=== PATIENT | male | born 1955 | race Two or more races ===

== ENCOUNTER 2024-10-11 17:36 | Inpatient (IN) | payer BC, MEDICARE ==
[~2024-10-11] VITALS: Ht 172.7 cm; Wt 110.5 kg
--- NOTE | 2024-10-11 18:04 | DVH ---
Procedure: CT HEAD WITHOUT CONTRAST Study Date and Requested Time: 10/11/2024 05:46 PM History: R/O STROKE Comparison: None Dose: CTDI: 48.25 mGy DLP: 957.5 mGycm Technique: Multiplanar images obtained through the brain without intravenous contrast. Findings: Mild diffuse brain atrophy. Mild chronic small vessel ischemic changes. 4 mm hypodense focus of the l eft lateral thalamus with 5 mm hypodense focus within the left basal ganglia. No hemorrhages, masses, mass effect, midline shift, or herniation. No intra-axial or extra-axial flui d collections. No evidence of hydrocephalus. The basal cisterns are patent. The pituitary gland, sella and parasellar regions are unremarkable. The cerebellar tonsils are in nor mal position. The cerebellum is unremarkable. The orbits and globes are unremarkable. Mild polypoid mucoperiosteal thickening of the maxillary sinu ses. Otherwise, the paranasal sinuses and mastoids are clear. There are no worrisome calvarial lesio ns. Impression: 4 mm hypodense focus within the left lateral thalamus with 5 mm hypodense focus within the left basal ganglia which may represent lacunar infarcts of unknown chronicity versus prominent perivascular spa lein. MRI would be helpful for further evaluation.
[2024-10-11 18:15] VITALS: PULSE 85; RESP 16; O2SAT 97
--- NOTE | 2024-10-11 18:15 | BSKYNEURO ---
[facility] Note # Demographics Consult Type: Acute Stroke Level 2 (4.5-24 hrs) Patient Location: Emergency Room First Name: NATE Last Name: MEI Date of : 1955 Age: 69 Gender: Male Facility: [facility] Time of Initial Page (): 10/11/2024 17:58 Time of Return Call (): 10/11/2024 17:58 # HPI History: Right sided weakness Last Known Normal: noon pst 10/10 # Scores Time of exam and NIHSS (): 10/11/2024 18:03 Level of Consciousness 1a: [0] = Alert; keenly responsive LOC Questions 1b: [0] = Answers both questions correctly LOC Commands 1c: [0] = Performs both tasks correctly Best Gaze 2: [0] = Normal Visual 3: [0] = No visual loss Facial Palsy 4: [2] = Partial paralysis Motor Arm Left 5a: [0] = No drift Motor Arm Right 5b: [3] = No effort against gravity Motor Leg Left 6a: [0] = No drift Motor Leg Right 6b: [3] = No effort against gravity Limb Ataxia 7: [0] = Absent Sensory 8: [0] = Normal Best Language 9: [0] = No aphasia Dysarthria 10: [2] = Severe dysarthria Extinction and Inattention 11: [0] = No abnormality NIHSS Total: 10 # Exam Vitals: vital signs reviewed # Data Head CT: - no bleed - preliminarily reviewed by me, please refer to radiology read for official reading # Assessment Impression: - Ischemic Stroke (Acute) # Plan Thrombolytic/Intervention: Possible IA candidate Thrombolytic Exclusion: > 4.5 hours Possible IA Candidate: - no signs and symptoms of LVO - CTA pending Target Blood Pressure: - SBP < 220 sbp<160 if cta negative Labs: - hemoglobin A1c - lipid panel Imaging: (urgency: STAT): - CT Angiogram Head and CT Angiogram Neck AND call back with results if abnormal Diagnostic Test: - echo without bubble study Therapy/Evaluation: - NPO until swallow evaluation - PT/OT evaluation - speech/swallow consultation Medication: - start statin with goal of LDL < 70 - Plavix 300 mg PO x1 now, then 75 mg daily x 21 days + asa 81mg x 21 days, followed by monotherapy thereafter Other: - If patient has any neurological deterioration please call me back immediately - I have discussed my recommendations with the referring provider - telemetry monitoring - LDL < 70 - will need event monitor or loop recorder as outpatient if atrial fibrillation not found as inpatient Disposition: admit # Logistics Attestation of consult completion: The patient is located at: [facility]. Facility staff participated in the visit. I performed this telemedicine visit from my offsite office utilizing interactive 2 way audio and visual telecommunication technology. Total time spent in telemedicine encounter: I spent 21 minutes reviewing clinical data and/or imaging, obtaining history, examining the patient, communicating with the onsite care team, and in preparation of this report. Critical Care time: 21 minutes of this encounter were critical care time. Due to a high probability of clinically significant, life-threatening neurologic deterioration, the patient required my highest level of preparedness to intervene emergently. I spent this critical care time managing the patient in conjunction with on-site providers who requested my consultation. In addition to the above, this critical care time included recommendation and review of studies, including imaging; arranging an urgent treatment and management plan with on-site providers; evaluation of patient's response to treatment; and documentation. This critical care time was performed to assess and manage the high probability of imminent, life-threatening deterioration that could result in neurologic catastrophe. # Demographics First Name: NATE Last Name: HURLEY Facility: [facility] Electronically signed at 10/11/2024 18:14 ([place] Time) by MD Neo Velasquez ZACHARY I MD Oct 11, 2024 18:15
--- NOTE | 2024-10-11 18:31 | ED.PDOC ---
HPI (NEURO) HPI Comments 69y M who presents to the ED for chief complaint of rule out stroke. Pt states he started to have slurred speech, R sided facial droop, with R arm weakness which he started started approx 12 PM 1 days prior. Pt states in the ED, he denies any past medical history and denies any past surgical history. Pt in the ED, has noted BP of 204/10 with all other vitals in normal range. Pt otherwise denies any symptoms at this time. Chief Complaint: Stroke Time Seen by MD: 18:20 Primary Care Provider: NONE Reviewed Notes: Nurses Notes, Medications, Allergies Information Source: Patient Mode of Arrival: Wheelchair Brought in by: self Severity: Moderate Dizziness/Weakness Severity: Unable to do activities Headache Severity: Moderate Timing: Hours Duration: Since onset Prehospital treatment: None Headache Location: Generalized Weakness Location: (R) Arm Onset: At rest Circumstances: Spontaneous Symptoms: Weakness History of: None Associated Signs and Symptoms: Weakness, Other (facial droop) Past Medical History PAST MEDICAL HISTORY: Denies Surgical History: Denies all surgeries Family History Family History: Reviewed,noncontributory to illness Social History Smoker: Non-Smoker Alcohol: Denies ETOH Use Drugs: Denies Drug Use Lives In: Home Constitutional: reports: malaise, weakness; denies: chills, diaphoresis, fatigue, fever, sweats, others EENTM: denies: blurred vision, double vision, ear bleeding, ear discharge, ear drainage, ear pain, ear ringing, eye pain, eye redness, hearing loss, mouth pain, mouth swelling, nasal discharge, nose bleeding, nose congestion, nose pain, photophobia, tearing, throat pain, throat swelling, voice changes, others Respiratory: denies: cough, hemoptysis, orthopnea, SOB at rest, shortness of breath, SOB with excertion, stridor, wheezing, others Cardiovascular: denies: chest pain, dizzy spells, diaphoresis, Dyspnea on exer tion, edema, irregular heart beat, left arm pain, lightheadedness, palpitations, PND, syncope, others Gastrointestinal: denies: abdomen distended, abdominal pain, blood streaked bowels, constipated, diarrhea, dysphagia, difficulty swallowing, hematemesis, melena, nausea, poor appetite, poor fluid intake, rectal bleeding, rectal pain, vomiting, others Genitourinary: denies: burning, dysuria, flank pain, frequency, hematuria, incontinence, penile discharge, penile sore, pain, testicle pain, testicle swelling, urgency, others Neurological: reports: numbness (R arm), others (facial droop); denies: dizziness, fainting, headache, left sided numbness, left sided weakness, paresthesia, pre-existing deficit, right sided numbness, right sided weakness, seizure, speech problems, tingling, tremors, weakness Musculoskeletal: denies: back pain, gout, joint pain, joint swelling, muscle pain, muscle stiffness, neck pain, others Integumetry: denies: bruises, change in color, change in hair/nails, dryness, laceration, lesions, lumps, rash, wounds, others Allergic/Immunocompromised: denies: Difficulty Healing, Frequent Infections, Hives, Itching, others Hematologic/Lymphatic: denies: anemia, blood clots, easy bleeding, easy bruising, swollen glands, others Endocrine: denies: excessive hunger, excessive sweating, excessive thirst, excessive urination, flushing, intolerance to cold, intolerance to heat, unexplained weight gain, unexplained weight loss, others Psychiatric: denies: anxiety, bipolar disorder, depression, hopeless, panic disorder, schizophrenia, sleepless, suicidal, others All Other Systems: Reviewed and Negative Physical Exam General Appearance: Moderate Distress HEENT: Pharynx Normal, TMs Normal, Other (Right-sided facial droop) Neck: Full Range of Motion, Non-Tender, Normal, Normal Inspection Respiratory: Chest Non-Tender, Lungs Clear, No Accessory Muscle Use, No Respiratory Distress, Normal Breath Sounds Cardiovascular: No Edema, No JVD, No Murmur, No Gallop, Normal Peripheral Pulses, Regular Rate/Rhythm Breast Exam: Deferred Gastrointestinal: No Organomegaly, Non Tender, No Pulsatile Mass, Normal Bowel Sounds, Soft Genitalia: Deferred Pelvic: Deferred Rectal: Deferred Extremities: No calf tenderness, Normal capillary refill, Normal inspection, Normal range of motion, Non-tender, No pedal edema Musculoskeletal : Apperance: Normal Neurologic: Alert, rnfa II-XII nml as Tested, Motor Weakness (Weakness to the right upper and lower extremities), Normal Affect, Normal Mood, No Sensory Deficits Cerebellar Function: Unable to Test Reflexes: Normal Skin: Dry, Normal Color, Warm Lymphatic: No Adenopathy Was a procedure done? Was a procedure done?: No Differential Diagnosis (SZ) Seizure: N/A General Weakness: CVA, Dehydration, Electrolyte imbalance, Encephalopathy, Hypoglycemia, Hypotension, Myocardial infarction, Pulmonary embolus, TIA Headache: Migraine, Closed Head Injury, Intracerebral Hemorrhage, Subarachnoid Hemorrhage X-Ray, Labs, Meds, VS Vital Signs Date Time Temp Pulse Resp B/P (MAP) Pulse Ox O2 Delivery O2 Flow Rate FiO2 10/11/24 18:15 85 16 97 Nasal Cannula* 3 32 10/11/24 18:15 98.3 85 16 200/125 (150) 97 98.3 10/11/24 17:40 99.1 91 18 204/103 (136) 97 Lab Test 10/11/24 18:55 10/11/24 18:41 10/11/24 17:43 Range/Units POC Glucose 241 H 280 H 70-106 mg/dl White Blood Count 9.5 4.4-10.8 10^3/uL Red Blood Count 5.70 4.5-5.90 10^6/uL Hemoglobin 16.2 13.5-17.5 g/dL Hematocrit 47.9 41.0-53.0 % Mean Corpuscular Volume 84.1 80.0-100.0 fL Mean Corpuscular Hemoglobin 28.4 28.0-32.0 pg Mean Corpuscular Hemoglobin Concent 33.8 32.0-36.0 g/dL Red Cell Distribution Width 14.0 11.8-14.3 % Platelet Count 213 140-450 10^3/uL Mean Platelet Volume 8.8 6.9-10.8 fL Neutrophils (%) (Auto) 74.9 37.0-80.0 % Lymphocytes (%) (Auto) 15.9 10.0-50.0 % Monocytes (%) (Auto) 7.6 0.0-12.0 % Eosinophils (%) (Auto) 0.8 0.0-7.0 % Basophils (%) (Auto) 0.8 0.0-2.0 % Neutrophils # (Auto) 7.1 1.6-8.6 10 ^3/uL Lymphocytes # (Auto) 1.5 0.4-5.4 10 ^3/uL Monocytes # (Auto) 0.7 0-1.3 10 ^3/uL Eosinophils # (Auto) 0.1 0-0.8 10 ^3/uL Basophils # (Auto) 0.1 0-0.2 10 ^3/uL Nucleated Red Blood Cells 0.1 % Prothrombin Time 10.8 9.3-11.8 sec Prothrombin Time INR 1.02 0.9-1.15 Activated Partial Thromboplast Time 28.8 24.5-34.5 SEC Sodium Level 138 136-145 mmol/L Potassium Level 3.6 3.5-5.1 mmol/L Chloride Level 104 98-107 mmol/L Carbon Dioxide Level 24 20-31 mmol/L Anion Gap 10 5-15 Blood Urea Nitrogen 20 9-23 mg/dL Creatinine 1.01 0.700-1.30 mg/dL Glomerular Filtration Rate Calc 80 >90 mL/min BUN/Creatinine Ratio 19.8 10.0-20.0 Serum Glucose 261 H 74-106 mg/dL Calcium Level 10.0 8.7-10.4 mg/dL Magnesium Level 2.1 1.6-2.6 mg/dL Total Bilirubin 0.8 0.2-1.0 mg/dL Aspartate Amino Transferase (AST) 15 13-40 U/L Alanine Aminotransferase (ALT) 23 7-40 U/L Alkaline Phosphatase 90 46-116 U/L Troponin I High Sensitivity 30 </=54 ng/L B-Type Natriuretic Peptide 15.61 0-100 pg/mL Total Protein 7.0 5.7-8.2 g/dL Albumin 4.8 3.2-4.8 g/dL Current Medications Medications (Trade) Dose Ordered Sig/Lusi Route Start Time Stop Time Status Last Admin Aspirin 162 mg ONCE ONCE PO 10/11/24 20:15 10/11/24 20:16 DC 10/11/24 21:00 Procedure: CT HEAD WITHOUT CONTRAST Impression: 4 mm hypodense focus within the left lateral thalamus with 5 mm hypodense focus within the left basal ganglia which may represent lacunar infarcts of unknown chronicity versus prominent perivascular spaces. MRI would be helpful for further evaluation. CT scan of the neck and head angiogram was done which shows: IMPRESSION: 1. Short-segment high-grade stenosis of the P2 segment of the left OUTSOLE MOLDER. This is age indeterminate. No encephalomalacia or CT signs of acute ischemia in the left cerebral lobe. Further evaluation with MRI could be completed if clinically warranted. 2. The anterior circulation is patent. The basilar artery and right OUTSOLE MOLDER are patent. 3. No large vessel occlusion or high-grade stenosis in the neck The patient was given aspirin 162 mg by mouth The CBC and chemistry panel is within normal limits. We called a code stroke The patient was hyperglycemic We spoke to the neurologist who did see the CT scan of the head and then ordered the CTA angio and neck The patient was being admitted is being consulted at this time Images Reviewed?: Images reviewed and evaluated by me Time of 1ST Reevaluation: 18:50 Reevaluation 1ST: Unchanged Patient Education/Counseling: Diagnosis, Treatment, Prognosis Family Education/Counseling: No Family Present Additional Information - I reviewed the following notes from patient's past medical encounters: - The following tests were ordered, and results were reviewed by me: (Labs, X- Ray, EKG): ct head w/o contrast, cbc, cmp, mag, pt, ptt, chest x-ray, trop x1, bnp, CT angio neck - Additional information was gathered from interviewing the following independent Historian: (Family, Other Providers, EMT): none - I reviewed and agreed with the following test results read by other provider: (X-ray, CT, US): radiologist - I discussed treatments and results with medical personnel and: (consultants, family): none Departure 1 Departure Time of Disposition: 21:21 Impression: Primary Impression: CVA (cerebral vascular accident) Qualified Codes: I63.9 - Cerebral infarction, unspecified Additional Impression: Hyperglycemia Disposition: ADMITTED INPATIENT Admit to: Tele Condition: Fair Critical Care Note Critical Care Time?: Yes (55 min-critical care time only) Stability Stability form required: Yes Unstable for transfer: Telemetry monitoring (Telemetry monitoring required), ED Physician Assesment (Clinical assesment) Heart Score Heart Score: Heart Score Response (Comments) Value History N/A 0 EKG N/A 0 Age N/A 0 Risk Factors N/A 0 Troponin N/A 0 Total 0 I personally scribed for EDIWN DAVIS MD ([email or web address]) on 10/11/24 at 18:31. Electronically submitted by Zeyad Pope ([email or web address]). I personally scribed for EDWIN DAVIS MD ([email or web address]) on 10/11/24 at 19:23. Elec tronically submitted by Zeyad Pope ([email or web address]). EDWIN DAVIS MD Oct 11, 2024 18:31
[2024-10-11 19:16] LABS: Basophils # (auto) 0.1 10 ^3/uL (0-0.2); Basophils % (auto) 0.8 % (0.0-2.0); Eosinophils # (auto) 0.1 10 ^3/uL (0-0.8); Eosinophils % (auto) 0.8 % (0.0-7.0); Hematocrit 47.9 % (41.0-53.0); Hemoglobin 16.2 g/dL (13.5-17.5); Lymphocytes # (auto) 1.5 10 ^3/uL (0.4-5.4); Lymphocytes % (auto) 15.9 % (10.0-50.0); Mean Corpuscular Hemoglobin 28.4 pg (28.0-32.0); Mean Corpuscular Hgb Conc. 33.8 g/dL (32.0-36.0); Mean Corpuscular Volume 84.1 fL (80.0-100.0); Monocytes # (auto) 0.7 10 ^3/uL (0-1.3); Monocytes % (auto) 7.6 % (0.0-12.0); Neutrophils # (auto) 7.1 10 ^3/uL (1.6-8.6); Neutrophils % (auto) 74.9 % (37.0-80.0); Nucleated Red Blood Cells % 0.1 %; Platelet Count (auto) 213 10^3/uL (140-450); White Blood Cell 9.5 10^3/uL (4.4-10.8)
[2024-10-11 19:28] LABS: INR 1.02 (0.9-1.15); Partial Thromboplastin Time 28.8 SEC (24.5-34.5); Prothrombin Time 10.8 sec (9.3-11.8)
[2024-10-11 19:29] LABS: Alanine Aminotransferase 23 U/L (7-40); Albumin 4.8 g/dL (3.2-4.8); Alkaline Phosphatase 90 U/L (46-116); Anion Gap 10 (5-15); Aspartate Aminotransferase 15 U/L (13-40); BUN/Creatinine Ratio 19.8 (10.0-20.0); Bilirubin, Total 0.8 mg/dL (0.2-1.0); Blood Urea Nitrogen 20 mg/dL (9-23); Carbon Dioxide 24 mmol/L (20-31); Chloride 104 mmol/L (98-107); Magnesium 2.1 mg/dL (1.6-2.6); Potassium 3.6 mmol/L (3.5-5.1); Sodium 138 mmol/L (136-145)
[2024-10-11 19:30] LABS: Glucose 261 mg/dL (74-106)
[2024-10-11] MEDS: IOHEXOL 350 MG/ML 100ML IJ ONE (20:21)
--- NOTE | 2024-10-11 20:40 | DVH ---
CHEST RADIOGRAPH Indication: Right-sided CVA Technique: Single frontal view of the chest was obtained Comparison: None FINDINGS: Lines and Tubes: None Lungs: No focal consolidation. Pleura: No pleural effusion No pneumothorax. Cardiomediastinal contours: Unremarkable Bones: No acute osseous abnormality. IMPRESSION: 1. No right pleural effusion or pneumothorax
[2024-10-11] MEDS: ASPirin 81 mg TAB PO ONE (21:00)
--- NOTE | 2024-10-11 21:16 | DVH ---
EXAM: CT ANGIO HEAD/NECK HISTORY: Right-sided weakness COMPARISON: None TECHNIQUE: CTA imaging of the neck and head was performed following the uneventful administration o f intravenous contrast. Sagittal and coronal reformatted images were obtained from the source data. 3 D/MIP post-processing of the source data set was performed and reviewed by the radiologist. Radiation Dose Information: CT Dose: CTDI volume is 31 mGy. Dose-length product is 947 mGy*cm All CT scans at this medical facility are performed using dose modulation techniques as appropriate t o a performed exam including the following: Automated exposure control was utilized; adjustment of th e MA and/or KV according to patient size; and use of iterative reconstruction technique. FINDINGS: CTA Neck: Aortic Arch: Conventional branching. Right brachiocephalic artery: Unremarkable. Right carotid artery: Unremarkable. Right subclavian artery: Unremarkable. Right vertebral artery: Unremarkable. Left carotid artery: Unremarkable. Left subclavian artery: Unremarkable. Left vertebral artery: Unremarkable. Other: Ground-glass opacities are seen in the bilateral upper lobes. CTA Head: Three [employer] [place]: Atherosclerotic calcification of the bilateral carotid siphons noted less than 50% stenosis. The bilateral ACAs and MCAs are patent. The bilateral intracranial vertebral arteries and b asilar artery are patent. The right [employer] is patent. There is occlusion of the left [employer] beyond the P1 segment. Dural venous: Grossly unremarkable. Other: None. IMPRESSION: 1. Short-segment high-grade stenosis of the P2 segment of the left SURG[employer]CE[employer]RICATOR. This is age indeterminate. No encephalomalacia or CT signs of acute ischemia in the left cerebral lobe. Further evaluation with MR I could be completed if clinically warranted. 2. The anterior circulation is patent. The basilar artery and right [employer] are patent. 3. No large vessel occlusion or high-grade stenosis in the neck
[2024-10-11] MEDS: SODIUM CHLORIDE 0.9% 1,000 ML IV SCH (21:45)
[2024-10-11] MEDS ORDERED: HYDROcodone-ACET 5/325MG TAB PO PRN (21:45)
[2024-10-11] MEDS ORDERED: ACETAMINOPHEN 325 MG TAB PO PRN (21:45)
[2024-10-11] MEDS ORDERED: DEXTROSE (50%) 50ML SYRG IV PRN (21:45)
[2024-10-11] MEDS ORDERED: ONDANSETRON HCL 4 MG/2 ML VIAL IV PRN (21:45)
--- NOTE | 2024-10-11 21:55 | DVHHP2 ---
History of Present Illness Reason for Visit: CVA (cerebral vascular accident) History of Present Illness The patient is a 69-year-old male who denies past medical history presented to [facility] ED with complaint of right arm weakness. Patient reports symptoms progressively get worse with slurred speech, right facial droops, getting worse that prompted this visit. Patient was seen and evaluated in the ED, laboratory data shows WBC 9.5, platelets 213, sodium 138, potassium 3.6, BUN 20, creatinine 1.01, GFR 80, glucose 261, BNP 15.61, troponin 30, blood pressure 204/103, pulse 85, temperature 98.3 F, O2 saturation 97% on oxygen. Head CT revealing 4 mm hypodense focus within the left lateral thalamus with 5 mm hypodense focus within the left basal ganglia which may represent lacunar infarcts with unknown chronicity versus prominent perivascular spaces. Please see medication orders section in the computer. On my assessment, patient denied chest pain, no headache, no dizziness, no diaphoresis, no abdominal pain, no diarrhea, no nausea, no vomiting, no fever, no chills. Patient was admitted for further evaluation and medical management. Past Medical History Denies past medical history Past Surgical History Denies all surgeries Family History Reviewed, noncontributory to the management of this case. Past Social History The patient lives at home, denies smoking, alcohol or illicit drugs abuse. Review of Systems Constitutional: Yes: Weakness, Malaise; No: Fever, Chills, Sweats, Other Eyes: No: Pain, Vision change, Conjunctivae inflammation, Eyelid inflammation, Other, Redness ENT: No: Ear pain, Ear discharge, Nose pain, Nose discharge, Nose congestion, Mouth pain, Mouth swelling, Throat pain, Throat swelling, Other Respiratory: No: Cough, Dry, Shortness of breath, SOB with excertion, Wheezing, Hemoptysis, Pleuritic Pain, Sputum, Wheezing, Other Cardiovascular: No: Chest Pain, Palpitations, Orthopnea, Paroxysmal Noc. Dyspnea, Edema, Lt Headedness, Other Gastrointestinal: No: Nausea, Vomiting, Abdominal Pain, Diarrhea, Constipation, Melena, Hematochezia, Other Genitourinary: No Dysuria, No Frequency, No Incontinence, No Hematuria, No Retention, No Other Musculoskeletal: No: other, neck pain, shoulder pain, arm pain, back pain, hand pain, leg pain, foot pain Skin: No: Rash, Lesions, Jaundice, Bruising, Other Neurological: Numbness (Right arm), Other (Right facial droop); No: Weakness, Incoordination, Change in speech, Confusion, Seizures Allergies: Coded Allergies: NO KNOWN ALLERGIES (Unverified , 10/11/24) Medications Current Medications Medications Dose Ordered Sig/Luis Route Start Time Stop Time Status Last Admin Dose Admin Aspirin 81 mg DAILY PO 10/12/24 10:00 UNV Hydralazine HCl 10 mg Q6HP PRN IV 10/11/24 21:45 Metoprolol Tartrate 50 mg BID PO 10/11/24 22:00 Atorvastatin Calcium 40 mg HS PO 10/11/24 22:00 UNV Sodium Chloride 1,000 ml @ 60 mls/hr [id number] IV 10/11/24 21:45 UNV Acetaminophen/ Hydrocodone Bitart 1 tab Q4HP PRN PO 10/11/24 21:45 Ondansetron HCl 4 mg Q4HP PRN IV 10/11/24 21:45 Docusate Sodium 100 mg BIDPRN PRN PO 10/11/24 21:45 UNV Acetaminophen 650 mg Q6HP PRN PO 10/11/24 21:45 Diagnostic Test (Pha) 1 strip IQ4HR 10/12/24 00:00 Insulin Human Regular IQ4HR SC 10/12/24 00:00 Dextrose 50 ml UD PRN IV 10/11/24 21:45 Exam Vital Signs Vital Signs Date Time Temp Pulse Resp B/P (MAP) Pulse Ox O2 Delivery O2 Flow Rate FiO2 10/11/24 18:15 85 16 97 Nasal Cannula* 3 32 10/11/24 18:15 98.3 200/125 (150) 98.3 General Appearance: Alert, Oriented X3, Cooperative, No acute distress HEENT: Atraumatic, PERRLA, EOMI, Mucous membr. moist/pink Respiratory: Clear to auscultation, Normal air movement Cardiovascular: Regular rate, Normal S1, Normal S2, No murmurs Abdominal: Normal bowel sounds, Soft, No tenderness, No hepatospenomegaly, No masses Extremities: No clubbing, No cyanosis, No edema, Normal pulses, No tenderness/swelling Skin: No rashes, No breakdown, No significant lesion Neuro: Normal speech, Normal tone, Sensation intact, Cranial nerves 3-12 NL, Reflexes 2+, Other (Generalized weakness) Psych/Mental Status: Mental status NL, Mood NL Labs/Xrays Labs Test 10/11/24 18:55 10/11/24 18:41 Range/Units POC Glucose 241 H 70-106 mg/dl White Blood Count 9.5 4.4-10.8 10^3/uL Red Blood Count 5.70 4.5-5.90 10^6/uL Hemoglobin 16.2 13.5-17.5 g/dL Hematocrit 47.9 41.0-53.0 % Mean Corpuscular Volume 84.1 80.0-100.0 fL Mean Corpuscular Hemoglobin 28.4 28.0-32.0 pg Mean Corpuscular Hemoglobin Concent 33.8 32.0-36.0 g/dL Red Cell Distribution Width 14.0 11.8-14.3 % Platelet Count 213 140-450 10^3/uL Mean Platelet Volume 8.8 6.9-10.8 fL Neutrophils (%) (Auto) 74.9 37.0-80.0 % Lymphocytes (%) (Auto) 15.9 10.0-50.0 % Monocytes (%) (Auto) 7.6 0.0-12.0 % Eosinophils (%) (Auto) 0.8 0.0-7.0 % Basophils (%) (Auto) 0.8 0.0-2.0 % Neutrophils # (Auto) 7.1 1.6-8.6 10 ^3/uL Lymphocytes # (Auto) 1.5 0.4-5.4 10 ^3/uL Monocytes # (Auto) 0.7 0-1.3 10 ^3/uL Eosinophils # (Auto) 0.1 0-0.8 10 ^3/uL Basophils # (Auto) 0.1 0-0.2 10 ^3/uL Nucleated Red Blood Cells 0.1 % Prothrombin Time 10.8 9.3-11.8 sec Prothrombin Time INR 1.02 0.9-1.15 Activated Partial Thromboplast Time 28.8 24.5-34.5 SEC Sodium Level 138 136-145 mmol/L Potassium Level 3.6 3.5-5.1 mmol/L Chloride Level 104 98-107 mmol/L Carbon Dioxide Level 24 20-31 mmol/L Anion Gap 10 5-15 Blood Urea Nitrogen 20 9-23 mg/dL Creatinine 1.01 0.700-1.30 mg/dL Glomerular Filtration Rate Calc 80 >90 mL/min BUN/Creatinine Ratio 19.8 10.0-20.0 Serum Glucose 261 H 74-106 mg/dL Calcium Level 10.0 8.7-10.4 mg/dL Magnesium Level 2.1 1.6-2.6 mg/dL Total Bilirubin 0.8 0.2-1.0 mg/dL Aspartate Amino Transferase (AST) 15 13-40 U/L Alanine Aminotransferase (ALT) 23 7-40 U/L Alkaline Phosphatase 90 46-116 U/L Troponin I High Sensitivity 30 </=54 ng/L B-Type Natriuretic Peptide 15.61 0-100 pg/mL Total Protein 7.0 5.7-8.2 g/dL Albumin 4.8 3.2-4.8 g/dL PATIENT: NATE HURLEY ACCT: [id number] UNIT: [id number] : 1955 LOC: ER ROOM / BED: / AGE / SEX: 69 / M ADM STATUS: REG ER SERVICE [id number] ORDERING PHYSICIAN: NOEL MORSE MD PROCEDURE(s): HWOCT - HEAD WITHOUT CONTRAST REASON: R/O STROKE ORDER NUMBER(s): [id number], ACCESSION NUMBER(s): [id number] Procedure: CT HEAD WITHOUT CONTRAST Study Date and Requested Time: 10/11/2024 05:46 PM History: R/O STROKE Comparison: None Dose: CTDI: 48.25 mGy DLP: 957.5 mGycm Technique: Multiplanar images obtained through the brain without intravenous contrast. Findings: Mild diffuse brain atrophy. Mild chronic small vessel ischemic changes. 4 mm hypodense focus of the left lateral thalamus with 5 mm hypodense focus within the left basal ganglia. No hemorrhages, masses, mass effect, midline shift, or herniation. No intra- axial or extra-axial fluid collections. No evidence of hydrocephalus. The basal cisterns are patent. The pituitary gland, sella and parasellar regions are unremarkable. The cerebellar tonsils are in normal position. The cerebellum is unremarkable. The orbits and globes are unremarkable. Mild polypoid mucoperiosteal thickening of the maxillary sinuses. Otherwise, the paranasal sinuses and mastoids are clear. There are no worrisome calvarial lesions. Impression: 4 mm hypodense focus within the left lateral thalamus with 5 mm hypodense focus within the left basal ganglia which may represent lacunar infarcts of unknown chronicity versus prominent perivascular spaces. MRI would be helpful for further evaluation. ORDERING PHYSICIAN: DEWIN DAVIS MD PROCEDURE(s): [place] - ANGIO HEAD/Neck REASON: Right-sided weakness ORDER NUMBER(s): [id number], ACCESSION NUMBER(s): [id number] EXAM: CT ANGIO HEAD/NECK HISTORY: Right-sided weakness COMPARISON: None TECHNIQUE: CTA imaging of the neck and head was performed following the uneventful administration of intravenous contrast. Sagittal and coronal reformatted images were obtained from the source data. 3D/MIP post-processing of the source data set was performed and reviewed by the radiologist. Radiation Dose Information: CT Dose: CTDI volume is 31 mGy. Dose-length product is 947 mGy*cm All CT scans at this medical facility are performed using dose modulation tech niques as appropriate to a performed exam including the following: Automated exposure control was utilized; adjustment of the MA and/or KV according to patient size; and use of iterative reconstruction technique. FINDINGS: CTA Neck: Aortic Arch: Conventional branching. Right brachiocephalic artery: Unremarkable. Right carotid artery: Unremarkable. Right subclavian artery: Unremarkable. Right vertebral artery: Unremarkable. Left carotid artery: Unremarkable. Left subclavian artery: Unremarkable. Left vertebral artery: Unremarkable. Other: Ground-glass opacities are seen in the bilateral upper lobes. CTA Head: [place]: Atherosclerotic calcification of the bilateral carotid siphons noted less than 50% stenosis. The bilateral ACAs and MCAs are patent. The bilateral intracranial vertebral arteries and basilar artery are patent. The right OBSTETRICS GYNECOLOGY PHYSICIAN is patent. There is occlusion of the left OBSTETRICS GYNECOLOGY PHYSICIAN beyond the P1 segment. Dural venous: Grossly unremarkable. Other: None. IMPRESSION: 1. Short-segment high-grade stenosis of the P2 segment of the left OBSTETRICS GYNECOLOGY PHYSICIAN. This is age indeterminate. No encephalomalacia or CT signs of acute ischemia in the left cerebral lobe. Further evaluation with MRI could be completed if clinically warranted. 2. The anterior circulation is patent. The basilar artery and right OBSTETRICS GYNECOLOGY PHYSICIAN are patent. 3. No large vessel occlusion or high-grade stenosis in the neck ORDERING PHYSICIAN: EDWIN DAVSI MD PROCEDURE(s): CXR1 - CHEST XRAY 1 VIEW REASON: Right-sided CVA ORDER NUMBER(s): [id number], ACCESSION NUMBER(s): [id number] CHEST RADIOGRAPH Indication: Right-sided CVA Technique: Single frontal view of the chest was obtained Comparison: None FINDINGS: Lines and Tubes: None Lungs: No focal consolidation. Pleura: No pleural effusion No pneumothorax. Cardiomediastinal contours: Unremarkable Bones: No acute osseous abnormality. IMPRESSION: 1. No right pleural effusion or pneumothorax Assessment/Plan Assessment/Plan CVA (cerebral vascular accident) Hyperglycemia Hypertensive urgency Cerebral infarction, unspecified Plan 1. Admit to telemetry urine 2. Breathing treatment 3. Pain control management 4. Management of fluids and electrolytes 5. Consultation for Neurology 6. Diagnostic tests head CT 7. DVT prophylaxis-on aspirin 8. Repeat labs CBC, CMP in a.m. 9. Continue with current medical management 10. Treatment plan discussed with patient and RN. Patient verbalized understanding. Plan discussed with: Patient, Other (RN) My Orders Orders - JOVANY RIVERA DNP Procedure Category Date Status Time Aspirin Tablet PHA 10/12/24 Logged 10:00 Hydralazine Injection PHA 10/11/24 In Process (Apresoline Inject 21:45 Metoprolol Tartrate PHA 10/11/24 In Process Tablet (Lopressor Ta 22:00 Atorvastatin (Lipitor) PHA 10/11/24 Logged 22:00 Hemoglobin A1c LAB 10/11/24 In Process 21:36 Allergies LAUREN 10/11/24 In Process 21:36 Code Status CODE 10/11/24 Transmitted 21:36 Sodium Chloride 0.9% PHA 10/11/24 Logged 21:45 Oxygen Per Hour RT 10/11/24 Transmitted 21:36 Hydrocodone-Acet PHA 10/11/24 In Process 5/325mg Tab ([place] 21:45 Ondansetron Hcl PHA 10/11/24 In Process (Zofran) 21:45 Docusate Sodium PHA 10/11/24 Logged Capsule (Colace 21:45 Fall Risk Precautions LAUREN 10/11/[address] 21:36 Complete Blood Count LAB 10/12/24 Verified 04:00 Comprehensive LAB 10/12/24 Verified Metabolic Panel 04:00 Cardiac DIET 10/12/24 Transmitted Diet-2gna,Lofat,Lochol Breakfast Condition: Serious LAUREN 10/11/24 In Process 21:36 Acetaminophen Tablet PHA 10/11/24 In Process (Tylenol Tablet) 21:45 Sequential LAUREN 10/11/24 In Process Compression Device Glucose Blood PHA 10/12/24 In Process (Accu-Chek Comfort 00:00 Insulin R (Human) PHA 10/12/24 In Process (Insulin R) 00:00 Dextrose 50% Syringe PHA 10/11/24 In Process 21:45 Problem List: (1) CVA (cerebral vascular accident) (2) Hyperglycemia (3) Hypertensive urgency (4) Cerebral infarction, unspecified Date of Service: Oct 11, 2024 Billing Provider: JOVANY RIVERA DNP Common Visit Codes: [id number] INP/OBS CARE (HIGH) JOVANY RIVERA DNP Oct 11, 2024 21:55
[2024-10-11] MEDS ORDERED: NITROGLYCERIN 0.4 MG SL TAB SL PRN (22:00)
[2024-10-11] MEDS ORDERED: MORPHINE SULFATE INJ 2 MG/ml SYRG IV PRN (22:00)
[2024-10-11] MEDS: ATORVASTATIN 20 MG TAB PO SCH (22:22)
[2024-10-11] MEDS: METOPROLOL TARTRATE 50 MG TAB PO SCH (22:22)
--- NOTE | 2024-10-11 22:22 | DVHINCON2 ---
Date of service: Oct 11, [address] Hill Reason for Consultation Stroke History of Present Illness Mr. Meek is a 69 years old right handed gentleman with a history of hypertension, diabetes, obesity, the patient was brought to the [facility] on 10/13/2024 with a chief complaint of right-sided weakness, at this time, he is alert and fully oriented, he provided following history He developed right-sided weakness, slurred speech on 10/10/2024, and he noticed the problem was worse on 10/11/2024 and he decided to seek medical attention, he denies confusion/altered mental status, headache, chest pain, vision changes He denies a history of stroke or similar problems previously He does not snore, he reports his sleep is refreshing, and he has no excessive daytime sleepiness/fatigue He reports taking aspirin 81 mg two tablets daily at home, but he does not remember taking statin or cholesterol medication CBC, 10/11/2024: Unremarkable CMP, 10/11/2024: Unremarkable CT head, 10/11/2024: 4 mm hypodense focus within the left lateral thalamus with 5 mm hypodense focus within the left basal ganglia which may represent lacunar infarcts of unknown chronicity versus prominent perivascular spaces. MRI would be helpful for further evaluation (I saw hypodense in left nano) CTA head, neck, 10/11/2024: 1. Short-segment high-grade stenosis of the P2 segment of the left OIL FILTERS INSPECTOR. This is age indeterminate. No encephalomalacia or CT signs of acute ischemia in the left cerebral lobe. Further evaluation with MRI could be completed if clinically warranted. 2. The anterior circulation is patent. The basilar artery and right OIL FILTERS INSPECTOR are patent. 3. No large vessel occlusion or high-grade stenosis in the neck Past Medical History Hypertension, diabetes, obesity Past Surgical History None Family History Cancer Social History He is not a tobacco smoker, he denies a history of alcohol or recreational substance abuse Allergies: Coded Allergies: NO KNOWN ALLERGIES (Unverified , 10/11/24) Current Medications Current Medications Medications (Trade) Dose Ordered Sig/Luis Route PRN Reason Start Time Stop Time Status Last Admin Aspirin 81 mg DAILY PO 10/12/24 10:00 Hydralazine HCl (Apresoline Injection) 10 mg Q6HP PRN IV SBP>150 10/11/24 21:45 Metoprolol Tartrate (Lopressor Tablet) 50 mg BID PO 10/11/24 22:00 Atorvastatin Calcium (Lipitor) 40 mg HS PO 10/11/24 22:00 UNV Sodium Chloride 1,000 ml @ 60 mls/hr [id number] IV 10/11/24 21:45 UNV Acetaminophen/ Hydrocodone Bitart ([place] 5/325MG Tab) 1 tab Q4HP PRN PO MODERATE PAIN (4-6 PAIN SCALE) 10/11/24 21:45 Ondansetron HCl (Zofran) 4 mg Q4HP PRN IV NAUSEA / VOMITING 10/11/24 21:45 Docusate Sodium (Colace Capsule) 100 mg BIDPRN PRN PO FOR CONSTIPATION 10/11/24 21:45 UNV Acetaminophen (Tylenol Tablet) 650 mg Q6HP PRN PO PAIN SCALE 1-3 OR TEMP>100.4 10/11/24 21:45 Diagnostic Test (Pha) (Accu-Chek Comfort Curve T) 1 strip IQ4HR 10/12/24 00:00 Insulin Human Regular (InsuLIN R) IQ4HR SC 10/12/24 00:00 Dextrose 50 ml UD PRN IV Blood Sugar LESS THAN 60 10/11/24 21:45 Nitroglycerin (Ntrostat Sublingual) 0.4 mg Q5MINP PRN SL FOR CHEST PAIN 10/11/24 22:00 UNV Morphine Sulfate 2 mg Q30M PRN IV FOR CHEST PAIN 10/11/24 22:00 UNV Nicardipine HCl 250 ml @ 50 mls/hr Q5H IV 10/11/24 22:15 UNV Review of Systems As above, the other systems are negative Vital Signs Vital Signs Date Time Temp Pulse Resp B/P (MAP) Pulse Ox O2 Delivery O2 Flow Rate FiO2 10/11/24 18:15 85 16 97 Nasal Cannula* 3 32 10/11/24 18:15 98.3 200/125 (150) 98.3 Physical Exam GENERAL EXAM: General: the patient is well developed and nourished. No acute distress. HEENT: Normocephalic, neck is supple, no carotid bruits. No mass. RESPIRATORY: Normal respiratory effort with symmetrical lung expansion. Lungs clear to auscultation. CARDIOVASCULAR: Regular rate and rhythm with no murmurs. S1, S2. ABDOMEN: Soft, nontender, normal bowel sound NEUROLOGICAL: MENTAL STATUS: Awake and alert. Oriented to person, place, time and general circumstances. Able to give personal history. SPEECH, LANGUAGE, HIGHER CORTICAL FUNCTION: no aphasia or dysathria. CRANIAL NERVES: #2: Intact visual barrett to confrontation. The optic discs were sharp #3,4,6: Pupils are equal, round and reactive. EOMs full and conjugate. No nystagmus. #5: Facial sensation intact in all three divisions bilaterally. Mandibular strength intact. #7: Facial muscles symmetrical and strength intact. #8: Hearing grossly normal to voice. #9,10: Uvula and soft palate rise in the midline. Swallow and voice are normal. #11: Trapezius and sternomastoid strength intact bilaterally. #12: Tongue midline. No fasciculations or atrophy. SENSATION: Sensation to touch and pinprick is normal. MOTOR: Normal tone in the upper and lower extremity. Normal muscle bulk. No fasciculations. No abnormal movements or posturing. Muscle strength of the major groups in the left extremities is 5/5. Muscle strength of the major groups in the right extremities is 5/5. REFLEXES: Deep tendon reflexes are symmetrical. No pathological reflexes. CEREBELLAR/COORDINATION: Finger to nose is normal in the left arm GAIT/STATION: deferred. Labs/Diagnostic Data Labs Test 10/11/24 18:55 10/11/24 18:41 Range/Units POC Glucose 241 H 70-106 mg/dl White Blood Count 9.5 4.4-10.8 10^3/uL Red Blood Count 5.70 4.5-5.90 10^6/uL Hemoglobin 16.2 13.5-17.5 g/dL Hematocrit 47.9 41.0-53.0 % Mean Corpuscular Volume 84.1 80.0-100.0 fL Mean Corpuscular Hemoglobin 28.4 28.0-32.0 pg Mean Corpuscular Hemoglobin Concent 33.8 32.0-36.0 g/dL Red Cell Distribution Width 14.0 11.8-14.3 % Platelet Count 213 140-450 10^3/uL Mean Platelet Volume 8.8 6.9-10.8 fL Neutrophils (%) (Auto) 74.9 37.0-80.0 % Lymphocytes (%) (Auto) 15.9 10.0-50.0 % Monocytes (%) (Auto) 7.6 0.0-12.0 % Eosinophils (%) (Auto) 0.8 0.0-7.0 % Basophils (%) (Auto) 0.8 0.0-2.0 % Neutrophils # (Auto) 7.1 1.6-8.6 10 ^3/uL Lymphocytes # (Auto) 1.5 0.4-5.4 10 ^3/uL Monocytes # (Auto) 0.7 0-1.3 10 ^3/uL Eosinophils # (Auto) 0.1 0-0.8 10 ^3/uL Basophils # (Auto) 0.1 0-0.2 10 ^3/uL Nucleated Red Blood Cells 0.1 % Prothrombin Time 10.8 9.3-11.8 sec Prothrombin Time INR 1.02 0.9-1.15 Activated Partial Thromboplast Time 28.8 24.5-34.5 SEC Sodium Level 138 136-145 mmol/L Potassium Level 3.6 3.5-5.1 mmol/L Chloride Level 104 98-107 mmol/L Carbon Dioxide Level 24 20-31 mmol/L Anion Gap 10 5-15 Blood Urea Nitrogen 20 9-23 mg/dL Creatinine 1.01 0.700-1.30 mg/dL Glomerular Filtration Rate Calc 80 >90 mL/min BUN/Creatinine Ratio 19.8 10.0-20.0 Serum Glucose 261 H 74-106 mg/dL Calcium Level 10.0 8.7-10.4 mg/dL Magnesium Level 2.1 1.6-2.6 mg/dL Total Bilirubin 0.8 0.2-1.0 mg/dL Aspartate Amino Transferase (AST) 15 13-40 U/L Alanine Aminotransferase (ALT) 23 7-40 U/L Alkaline Phosphatase 90 46-116 U/L Troponin I High Sensitivity 30 </=54 ng/L B-Type Natriuretic Peptide 15.61 0-100 pg/mL Total Protein 7.0 5.7-8.2 g/dL Albumin 4.8 3.2-4.8 g/dL Assessment Acute stroke syndrome Multiple strokes in CT brain scan Stroke risk fact: Hypertension, diabetes, Obesity Plan/Recommendation Monitoring Supportive treatment Telemetry UDS Lipid profile ROMARIO MR brain scan Lipitor 40 mg daily Aspirin 162 mg daily (home medication) Up to chair Physical therapy More recommendation per clinical course Prognosis: Poor This medical document was created using an electronic medical record system with [employer] computerized dictation system. Although this document has been carefully reviewed, there may still be some phonetic and typographical errors. These areas are purely typographical due to imperfections of the software programs, and do not reflect any compromise in the patient's medical care. Plan discussed with: Patient, Other RHETT MACKENZIE MD Oct 11, 2024 22:22
[2024-10-11] MEDS: ASPirin 81 mg TAB PO SCH (23:00)
[2024-10-11] MEDS ORDERED: LORazepam 2MG/ML-1ML VIAL IV PRN (23:00)
[2024-10-11 23:15] LABS: Triglycerides 145 mg/dL (< 150)
[2024-10-11 23:17] LABS: LDL Cholesterol 149 mg/dL (< 100)
[2024-10-11 23:19] LABS: Cholesterol 201 mg/dL (< 200); HDL Cholesterol 39 mg/dL (40-59)
[2024-10-12] MEDS: ACCU-CHEK COMFORT CURVE STRIP VI SCH (00:27)
[2024-10-12] MEDS: InsuLIN REG 1unit/0.01ml Soln (100units/ml) SC SCH (00:27)
[2024-10-12 05:16] LABS: Basophils # (auto) 0.1 10 ^3/uL (0-0.2); Basophils % (auto) 0.9 % (0.0-2.0); Eosinophils # (auto) 0.1 10 ^3/uL (0-0.8); Eosinophils % (auto) 1.4 % (0.0-7.0); Hematocrit 47.5 % (41.0-53.0); Hemoglobin 16.1 g/dL (13.5-17.5); Lymphocytes # (auto) 2.6 10 ^3/uL (0.4-5.4); Lymphocytes % (auto) 24.4 % (10.0-50.0); Mean Corpuscular Hemoglobin 28.6 pg (28.0-32.0); Mean Corpuscular Hgb Conc. 33.9 g/dL (32.0-36.0); Mean Corpuscular Volume 84.5 fL (80.0-100.0); Monocytes # (auto) 0.8 10 ^3/uL (0-1.3); Monocytes % (auto) 7.9 % (0.0-12.0); Neutrophils # (auto) 6.9 10 ^3/uL (1.6-8.6); Neutrophils % (auto) 65.4 % (37.0-80.0); Nucleated Red Blood Cells % 0.2 %; Platelet Count (auto) 244 10^3/uL (140-450); Red Blood Cells 5.62 10^6/uL (4.5-5.90); Red Cell Distribution Width 14.2 % (11.8-14.3); White Blood Cell 10.6 10^3/uL (4.4-10.8)
[2024-10-12 05:46] LABS: Alanine Aminotransferase 19 U/L (7-40); Alkaline Phosphatase 79 U/L (46-116); Anion Gap 10 (5-15); Calcium 9.9 mg/dL (8.7-10.4); Carbon Dioxide 22 mmol/L (20-31); Chloride 106 mmol/L (98-107); Sodium 138 mmol/L (136-145)
[2024-10-12 05:47] LABS: Albumin 4.4 g/dL (3.2-4.8); Aspartate Aminotransferase 17 U/L (13-40)
[2024-10-12 06:00] LABS: Glucose 203 mg/dL (74-106); Potassium 3.4 mmol/L (3.5-5.1)
[2024-10-12 06:03] LABS: BUN/Creatinine Ratio 18.3 (10.0-20.0); Blood Urea Nitrogen 17 mg/dL (9-23)
[2024-10-12 08:00] VITALS: PULSE 69; RESP 18; O2SAT 95
[2024-10-12] MEDS: POTASSIUM EFFERVESENT TAB 25 MEQ PO ONE (08:10)
[2024-10-12 08:53] LABS: Amphetamine Screen, Urine Neg (NEGATIVE); Barbiturate Scree,Urine Neg (NEGATIVE); Benzodiazephine Screen, Urine Neg (NEGATIVE); Cannabinoid Screen, Urine Neg (NEGATIVE); Cocaine Screen, Urine Neg (NEGATIVE); Opiate Scree,Urine Neg (NEGATIVE); Phencyclidine Screen, Urine Neg (NEGATIVE)
--- NOTE | 2024-10-12 08:55 | DVH ---
CLINICAL INDICATION: 69 years old, Male; cerebrovascular accident. COMPARISON: Noncontrast CT head dated 10/11/2024. TECHNIQUE: Multisequence multiplanar MRI images of the brain were obtained without contrast. FINDINGS: Focal area of restricted diffusion in the left side of the nano measuring up to 2.3 x 1.0 cm, suspected acute or subacute infarct. No mass or midline shift. Scattered areas of T2/FLAIR hyperi ntense signal in the periventricular and subcortical white matter are nonspecific, but most likely se quelae of chronic small vessel ischemic disease. Chronic lacunar infarcts in the left basal ganglia l eft thalamus. Ventricles and sulci are within normal limits. Basal cisterns are patent. Cerebellum, b rainstem, and midline structures are within normal limits. Mild mucosal thickening of the paranasal s inuses. Orbits are grossly unremarkable. IMPRESSION: 1. Acute or subacute infarct in the left side of the nano. 2. Findings consistent with chronic small-vessel ischemic disease and chronic lacunar infarcts in the left basal ganglia and left thalamus 3. Additional findings as described above.
[2024-10-12] MEDS ORDERED: ASPirin 81 mg TAB PO SCH (10:00)
--- NOTE | 2024-10-12 11:04 | DVHINCON2 ---
LIA MEDRANO [facility] 10/12/24 1104: Date Seen: Oct 12, 2024 Referring Physician MD Clarence Reason for Consultation SHELBY: multiple strokes History of Present Illness This is a 69-year-old male patient who presents to emergency room with chief complaint of slurred speech, right facial droop, and right arm weakness that began one day prior to emergency room arrival 12:00 p.m. After symptoms did not subside, the patient decided to come to the emergency room for further evaluation. Imaging via brain MRI revealed acute or subacute infarct in the left side of the nano. Cardiology has now been consulted for possible transesophageal echocardiogram. Initial 12 lead electrocardiogram reveals normal sinus rhythm with right bundle branch block. The patient denies any cardiac symptoms. The patient also denies any previous history including hypertension. Of note, the patient came in with a blood pressure reaching as high as 204/103. The patient states he has never been diagnosed with high blood pressure and has not seen a primary care physician in over five years. Past Medical History Past medical history reviewed. No other significant than mentioned above. Past Surgical History Denies all previous surgeries Family History Family history reviewed. Social History Denies the use of tobacco, alcohol or illicit drugs. Allergies: Coded Allergies: NO KNOWN ALLERGIES (Unverified , 10/11/24) Home Meds Denies taking any prescribed medications Current Medications Current Medications Medications (Trade) Dose Ordered Sig/Luis Route PRN Reason Start Time Stop Time Status Last Admin Aspirin 81 mg DAILY PO 10/12/24 10:00 10/11/24 22:54 DC Hydralazine HCl (Apresoline Injection) 10 mg Q6HP PRN IV SBP>150 10/11/24 21:45 Metoprolol Tartrate (Lopressor Tablet) 50 mg BID PO 10/11/24 22:00 10/12/24 10:32 Atorvastatin Calcium (Lipitor) 40 mg HS PO 10/11/24 22:00 10/11/24 22:22 Sodium Chloride 1,000 ml @ 60 mls/hr [id number] IV 10/11/24 21:45 10/11/24 21:45 Acetaminophen/ Hydrocodone Bitart (Dunbar 5/325MG Tab) 1 tab Q4HP PRN PO MODERATE PAIN (4-6 PAIN SCALE) 10/11/24 21:45 Ondansetron HCl (Zofran) 4 mg Q4HP PRN IV NAUSEA / VOMITING 10/11/24 21:45 Docusate Sodium (Colace Capsule) 100 mg BIDPRN PRN PO FOR CONSTIPATION 10/11/24 21:45 Acetaminophen (Tylenol Tablet) 650 mg Q6HP PRN PO PAIN SCALE 1-3 OR TEMP>100.4 10/11/24 21:45 Diagnostic Test (Pha) (Accu-Chek Comfort Curve T) 1 strip IQ4HR 10/12/24 00:00 10/12/24 08:10 Insulin Human Regular (InsuLIN R) IQ4HR SC 10/12/24 00:00 10/12/24 08:11 Dextrose 50 ml UD PRN IV Blood Sugar LESS THAN 60 10/11/24 21:45 Nitroglycerin (Ntrostat Sublingual) 0.4 mg Q5MINP PRN SL FOR CHEST PAIN 10/11/24 22:00 Morphine Sulfate 2 mg Q30M PRN IV FOR CHEST PAIN 10/11/24 22:00 Nicardipine HCl 250 ml @ 50 mls/hr Q5H IV 10/11/24 22:15 10/12/24 06:09 DC 10/11/24 22:38 Aspirin 162 mg DAILY PO 10/11/24 23:00 10/12/24 10:33 Lorazepam (Ativan Inj) 1 mg ONCE PRN IV MRI 10/11/24 23:00 Review of Systems Constitutional: No symptom reported Ears, Nose, & Throat: No symptom reported Eyes: No symptom reported Neurological: Slurred speech, right facial droop, right arm weakness Pulmonary/Respiratory: No symptoms reported Cardiovascular: No symptom reported Gastrointestinal: No symptom reported Genitourinary: No symptom reported Musculoskeletal: No symptom reported Skin: No symptom reported Psychiatric: No symptom reported Endocrine: No symptom reported Hematologic/Lymphatic: No symptom reported Vital Signs Vital Signs Date Time Temp Pulse Resp B/P (MAP) Pulse Ox O2 Delivery O2 Flow Rate FiO2 10/12/24 10:32 85 167/101 10/12/24 08:00 98.6 18 95 98.6 10/12/24 08:00 Room Air* 0 21 Physical Exam General Appearance: Cooperative. Morbidly obese Pulmonary/Respiratory: Clear, bilateral breaths sounds. Cardiovascular/Chest: Regular rate and rhythm. Peripheral Pulses: 2+ Radial (R). 2+ Radial (L). 2+ Pedal (R). 2+ Pedal (L) Abdominal Exam: Normal bowel sounds. Ankle Exam: Negative ankle edema Lower extremities: Negative lower extremity edema Neuro/Mental Status: A/OX4, coherent. Right facial droop Thoughts/Psych: Normal thought pattern. Appropriate mood and affect. Good judgment and insight. Appearance: No acute distress. Skin Exam: Normal inspection. Normal color. Warm and dry. Labs/Diagnostic Data Labs Test 10/12/24 08:05 10/12/24 08:00 10/12/24 04:52 10/11/24 18:41 Range/Units POC Glucose 183 H 70-106 mg/dl Urine Opiates Screen Neg NEGATIVE Urine Fentanyl Screen Neg NEGATIVE Urine Barbiturates Screen Neg NEGATIVE Urine Phencyclidine Screen Neg NEGATIVE Urine Amphetamines Screen Neg NEGATIVE Urine Benzodiazepines Screen Neg NEGATIVE Urine Cocaine Screen Neg NEGATIVE Urine Cannabinoids Screen Neg NEGATIVE White Blood Count 10.6 4.4-10.8 10^3/uL Red Blood Count 5.62 4.5-5.90 10^6/uL Hemoglobin 16.1 13.5-17.5 g/dL Hematocrit 47.5 41.0-53.0 % Mean Corpuscular Volume 84.5 80.0-100.0 fL Mean Corpuscular Hemoglobin 28.6 28.0-32.0 pg Mean Corpuscular Hemoglobin Concent 33.9 32.0-36.0 g/dL Red Cell Distribution Width 14.2 11.8-14.3 % Platelet Count 244 140-450 10^3/uL Mean Platelet Volume 8.5 6.9-10.8 fL Neutrophils (%) (Auto) 65.4 37.0-80.0 % Lymphocytes (%) (Auto) 24.4 10.0-50.0 % Monocytes (%) (Auto) 7.9 0.0-12.0 % Eosinophils (%) (Auto) 1.4 0.0-7.0 % Basophils (%) (Auto) 0.9 0.0-2.0 % Neutrophils # (Auto) 6.9 1.6-8.6 10 ^3/uL Lymphocytes # (Auto) 2.6 0.4-5.4 10 ^3/uL Monocytes # (Auto) 0.8 0-1.3 10 ^3/uL Eosinophils # (Auto) 0.1 0-0.8 10 ^3/uL Basophils # (Auto) 0.1 0-0.2 10 ^3/uL Nucleated Red Blood Cells 0.2 % Sodium Level 138 136-145 mmol/L Potassium Level 3.4 L 3.5-5.1 mmol/L Chloride Level 106 98-107 mmol/L Carbon Dioxide Level 22 20-31 mmol/L Anion Gap 10 5-15 Blood Urea Nitrogen 17 9-23 mg/dL Creatinine 0.93 0.700-1.30 mg/dL Glomerular Filtration Rate Calc 88 >90 mL/min BUN/Creatinine Ratio 18.3 10.0-20.0 Serum Glucose 203 H 74-106 mg/dL Calcium Level 9.9 8.7-10.4 mg/dL Total Bilirubin 1.0 0.2-1.0 mg/dL Aspartate Amino Transferase (AST) 17 13-40 U/L Alanine Aminotransferase (ALT) 19 7-40 U/L Alkaline Phosphatase 79 46-116 U/L Total Protein 7.0 5.7-8.2 g/dL Albumin 4.4 3.2-4.8 g/dL Prothrombin Time 10.8 9.3-11.8 sec Prothrombin Time INR 1.02 0.9-1.15 Activated Partial Thromboplast Time 28.8 24.5-34.5 SEC Hemoglobin A1c 10.8 H <5.7 % A1C Magnesium Level 2.1 1.6-2.6 mg/dL Troponin I High Sensitivity 30 </=54 ng/L B-Type Natriuretic Peptide 15.61 0-100 pg/mL Triglycerides Level 145 < 150 mg/dL Cholesterol Level 201 H < 200 mg/dL LDL Cholesterol 149 H < 100 mg/dL HDL Cholesterol 39 L 40-59 mg/dL Assessment Acute CVA, rule out cardiac source of embolus Rule out cardiac dysrhythmia Hypertensive urgency Dyslipidemia, newly diagnosed Uncontrolled Type 2 diabetes mellitus, newly diagnosed (Hgb A1c 10.8%) Morbid obesity Plan/Recommendation We will proceed with the following plan/recommendations (Dr. Hou): Case reviewed and discussed with . Neurology has consulted Cardiology for a transesophageal echocardiogram to rule out cardiac source of embolus. Procedure discussed with the patient in full detail. Patient is agreeable. We will schedule the patient at first availability on 10/15/24. In the meantime, continue with close cardiac surveillance. Monitor and notify Cardiac team immediately for any ECG changes or cardiac arrhythmias. Continue with blood pressure control and permissive hypertension per Neurology recommendations. Thank you for allowing us to care for this patient. Please call with any questions or concerns. Critical care time spent: 44 minutes This medical document was created using an electronic medical record system with voice recognition software and computerized dictation system. Although this document has been carefully reviewed, there might still be some phonetic and typographical errors. Occasional wrong-word or ``sound-alike substitutions may have occurred due to the inherent limitations of voice recognition software. These areas are purely typographical due to imperfections of the software programs and do not reflect any compromise in the patient's medical care. Please read the chart carefully and recognize, using context, where these substitutions have occurred. Plan discussed with: Patient NYHA Physical activity limitations: NA Date of Service: Oct 12, 2024 Billing Provider: LIA MEDRANO Cardiology Common Codes: 45146-MCDTDOI INP/OBS CARE (High) Cardiology Consultation Codes: 56057-XWIVENSAC CONSULT <45MIN VALERIA HOU MD 10/12/24 1753: Allergies: Coded Allergies: NO KNOWN ALLERGIES (Unverified , 10/11/24) Plan/Recommendation agree with DRY CLEANER plan formulated together preserved lvef on echo ecg SR reviewed brai imaging shelby planned Date of Service: Oct 12, 2024 Billing Provider: VALERIA HOU MD Cardiology Common Codes: NOT BILLABLE LIA MEDRANO Oct 12, 2024 11:04 VALERIA HOU MD Oct 12, 2024 17:53
--- NOTE | 2024-10-12 11:59 | ECG ---
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
[2024-10-12] MEDS: INSULIN LANTUS (GLARGINE) 1 /0.01ml (100units/ml) SC SCH (15:54)
--- NOTE | 2024-10-12 17:13 | DVHPN2 ---
Progress Note - Dictate Date Seen: Oct 12, 2024 Medical Necessity Reason Pt with a Central, PICC or Fol: No Subjective Mr. Meek is a 69 years old right handed gentleman with a history of hypertension, diabetes, obesity, the patient was brought to the [facility] on 10/13/2024 with a chief complaint of right-sided weakness, I have seen and examined the patient, I have discussed with his nurse, Dr. Castro and other medical staff, he was doing better today, alert oriented x3, speech is slurry, right leg weakness is mildly better but no change in the right arm weakness He denies snoring UDS, 10/12/2024: Negative CBC, 10/11/2024: Unremarkable CMP, 10/11/2024: Unremarkable HGB A1c, 10/11/2024: 10.8 TG/HDL/LDL/HDL, 10/11/2024: 145/201/149/39 CT head, 10/11/2024: 4 mm hypodense focus within the left lateral thalamus with 5 mm hypodense focus within the left basal ganglia which may represent lacunar infarcts of unknown chronicity versus prominent perivascular spaces. MRI would be helpful for further evaluation (I saw hypodense in left nano) CTA head, neck, 10/11/2024: 1. Short-segment high-grade stenosis of the P2 segment of the left NURSE QUALITY. This is age indeterminate. No encephalomalacia or CT signs of acute ischemia in the left cerebral lobe. Further evaluation with MRI could be completed if clinically warranted. 2. The anterior circulation is patent. The basilar artery and right NURSE QUALITY are patent. 3. No large vessel occlusion or high-grade stenosis in the neck MRI head, 10/12/2024: 1. Acute or subacute infarct in the left side of the nano. 2. Findings consistent with chronic small-vessel ischemic disease and chronic lacunar infarcts in the left basal ganglia and left thalamus 3. Additional findings as described above (Chronic lacunar infarcts in the left basal ganglia left thalamus) vital signs Vital Sign Date Time Temp Pulse Resp B/P (MAP) Pulse Ox O2 Delivery O2 Flow Rate FiO2 10/12/24 16:00 78 14 148/71 (96) 95 10/12/24 08:00 98.6 98.6 10/12/24 08:00 Room Air* 0 21 medications Current Medications Medications Dose Ordered Sig/Luis Route Start Time Stop Time Status Last Admin Dose Admin Hydralazine HCl 10 mg Q6HP PRN IV 10/11/24 21:45 Metoprolol Tartrate 50 mg BID PO 10/11/24 22:00 10/12/24 10:32 50 MG Atorvastatin Calcium 40 mg HS PO 10/11/24 22:00 10/11/24 22:22 40 MG Sodium Chloride 1,000 ml @ 60 mls/hr [id number] IV 10/11/24 21:45 10/12/24 14:00 60 MLS/HR Acetaminophen/ Hydrocodone Bitart 1 tab Q4HP PRN PO 10/11/24 21:45 Ondansetron HCl 4 mg Q4HP PRN IV 10/11/24 21:45 Docusate Sodium 100 mg BIDPRN PRN PO 10/11/24 21:45 Acetaminophen 650 mg Q6HP PRN PO 10/11/24 21:45 Diagnostic Test (Pha) 1 strip IQ4HR 10/12/24 00:00 10/12/24 15:54 1 STRIP Insulin Human Regular IQ4HR SC 10/12/24 00:00 10/12/24 15:54 6 UNITS Dextrose 50 ml UD PRN IV 10/11/24 21:45 Nitroglycerin 0.4 mg Q5MINP PRN SL 10/11/24 22:00 Morphine Sulfate 2 mg Q30M PRN IV 10/11/24 22:00 Aspirin 162 mg DAILY PO 10/11/24 23:00 10/12/24 10:33 162 MG Lorazepam 1 mg ONCE PRN IV 10/11/24 23:00 Insulin Glargine 25 units QAM SC 10/12/24 14:30 10/12/24 15:54 25 UNITS objective General: the patient is well developed and nourished. No acute distress. MENTAL STATUS: Awake and alert. Oriented to person, place, time and general circumstances. Able to give personal history. SPEECH, LANGUAGE, HIGHER CORTICAL FUNCTION: no aphasia or dysathria. CRANIAL NERVES: Intact visual barrett to confrontation. The optic discs were sharp. Pupils are equal, round and reactive. EOMs full and conjugate. No nystagmus. Facial sensation intact in all three divisions bilaterally. Mandibular strength intact. Facial muscles symmetrical and strength intact. SENSATION: Sensation to touch and pinprick is normal. MOTOR: Normal tone in the upper and lower extremity. Normal muscle bulk. No fasciculations. No abnormal movements or posturing. Muscle strength of the major groups in the right extremities: Arm: Two-3/5, Le/5. REFLEXES: Deep tendon reflexes are symmetrical. No pathological reflexes. CEREBELLAR/COORDINATION: Finger to nose is normal in the left arm GAIT/STATION: deferred. laboratory and microbiology Laboratory Tests 10/12/24 04:52 Test 10/12/24 04:52 Range/Units Serum Glucose 203 H 74-106 mg/dL Problem List Acute stroke syndrome Multiple strokes in CT brain scan Stroke risk fact: Hypertension, diabetes, Obesity Assessment/Plan Monitoring Supportive treatment Telemetry ROMARIO Lipitor 40 mg daily Aspirin 162 mg daily (home medication) Plavix 75 mg q.d. for 21 days Up to chair Physical therapy More recommendation per clinical course Prognosis: Poor This medical document was created using an electronic medical record system with [employer] dictation system. Although this document has been carefully reviewed, there may still be some phonetic and typographical errors. These areas are purely typographical due to imperfections of the software programs, and do not reflect any compromise in the patient's medical care. Prognosis poor Plan discussed with: Patient, Other Total Time (mins): 35 RHETT MACKENZIE MD Oct 12, 2024 17:13
--- NOTE | 2024-10-12 17:31 | DVHSR ---
APPROVED REPORT EXAM: Two-dimensional and M-mode echocardiogram with Doppler and color Doppler. Blood Pressure: 144/76 mmHg INDICATION evaluate cardiac function RISK FACTORS Obesity: Height: 5'8, Weight: 277 DIMENSIONS LVDd4.7 (3.8-5.7cm)LA (2D)3.3 (1.9-4.0cm)Aortic Root3.0 (2.0-3.7cm) LVDs3.2 (2.5-4.0cm)LA (MM) (1.9-4.0cm)Aortic Cusp Exc1.5 (1.5-2.0cm) EF (%) 60.0 (55-70%)Rt. Atrium2.9 (1.9-4.0cm)Asc. Aorta cm IVSd1.2 (0.7-1.1cm)RV (D)3.6 (1.8-2.4cm) PWd1.2 (0.7-1.1cm) Mitral Valve MitralMitral Stenosis E wave0.41m/sMV Mean GR.mmHg A wave0.59m/sMV Peak GR.mmHg E/A ratio0.72D MVAcm2 DECEL [id number] 1/2 Timems Aortic Valve Aortic ValveAortic Stenosis V10.90m/Barbara Mean GR.3mmHg V21.15m/Barbara Peak GR.5mmHg LVOT Diameter1.9 (1.8-2.4cm)Doppler AVA2.22cm2 Pulmonic Valve V20.92m/s Other Information Quality : Technically LimitedRhythm : Technically limited study due to patient position.body habitus. Conclusion lvef 60% by visual estimate moderate LVH normal rv function no severe valve abnormalites noted aortic sclerosis
[2024-10-12 18:10] VITALS: BP 145/77; PULSE 71; RESP 18; TEMP 97.6; O2SAT 93
[2024-10-12 18:32] VITALS: PULSE 71; RESP 18; O2SAT 93
--- NOTE | 2024-10-12 19:12 | DVHPNRES ---
Progress Note Date Seen: Oct 12, 2024 Resident Creating Document: APRIL TILLMAN RESIDENT Medical Necessity Reason Pt with a Central, PICC or Fol: No Subjective Review of Systems Patient is a 69-year-old male with past medical history of diabetes, hypertension, who came in after sustaining a fall. According to the patient on 10/10/2024, when he was in the parking lot of his workplace he felt dizzy and right-sided weakness along with some loss of balance which led to a fall. Per patient he went home after that and continued to feel weakness on his right side and felt unstable on his feet which is what prompted this visit to the hospital. In the hospital, patient was noted to have a blood pressure of to [address] showed a 4 mm hypodense focus within the left lateral thalamus with 5 mm hypodense focus within the left basal ganglia which may represent lacunar infarcts of unknown chronicity versus prominent perivascular space. Per patient, he was diagnosed with diabetes and hypertension, however, does not take any medications at home except for aspirin 81 mg p.o. daily Past surgical history: Denies Home medications: Aspirin, NSAID as needed [id number] Past Hospitalization: In 2019 for COVID pneumonia Social & Personal history: Patient lives with family. Denies smoking, denies using alcohol, denies using drugs. Allergies: Denies Patient seen and examined at bedside. Patient is and oriented to time, place person and responding to all questions. Eyes: No Pain, No Vision change, No Conjunctivae inflammation, No Eyelid inflammation, No Other, No Redness ENT: No Ear pain, No Ear discharge, No Nose pain, No Nose discharge, No Nose congestion, No Mouth pain, No Mouth swelling, No Throat pain, No Throat swelling, No Other Cardiovascular: No Chest Pain, No Palpitations, No Orthopnea, No Paroxysmal No Dyspnea, No Edema, No Lt Headedness, No Other Respiratory: No Cough, No Dry, No Shortness of breath, No SOB with exertion, No Wheezing, No Hemoptysis, No Pleuritic Pain, No Sputum, No Other Gastrointestinal: No Nausea, No Vomiting, No Abdominal Pain, No Diarrhea, No Constipation, No Melena, No Hematochezia, No Other Genitourinary: No Dysuria, No Frequency, No Incontinence, No Hematuria, No Retention, No Other Musculoskeletal: No other, No neck pain, No shoulder pain, No arm pain, No back pain, No hand pain, No leg pain, No foot pain Skin: No Rash, No Lesions, No Jaundice, No Bruising, No Other Objective vital signs Vital Sign Date Time Temp Pulse Resp B/P (MAP) Pulse Ox O2 Delivery O2 Flow Rate FiO2 10/12/24 16:00 78 14 148/71 (96) 95 10/12/24 08:00 98.6 98.6 10/12/24 08:00 Room Air* 0 21 medications Current Medications Medications Dose Ordered Sig/Luis Route Start Time Stop Time Status Last Admin Dose Admin Hydralazine HCl 10 mg Q6HP PRN IV 10/11/24 21:45 Metoprolol Tartrate 50 mg BID PO 10/11/24 22:00 10/12/24 10:32 50 MG Atorvastatin Calcium 40 mg HS PO 10/11/24 22:00 10/11/24 22:22 40 MG Sodium Chloride 1,000 ml @ 60 mls/hr [id number] IV 10/11/24 21:45 10/12/24 14:00 60 MLS/HR Acetaminophen/ Hydrocodone Bitart 1 tab Q4HP PRN PO 10/11/24 21:45 Ondansetron HCl 4 mg Q4HP PRN IV 10/11/24 21:45 Docusate Sodium 100 mg BIDPRN PRN PO 10/11/24 21:45 Acetaminophen 650 mg Q6HP PRN PO 10/11/24 21:45 Diagnostic Test (Pha) 1 strip IQ4HR 10/12/24 00:00 10/12/24 15:54 1 STRIP Insulin Human Regular IQ4HR SC 10/12/24 00:00 10/12/24 15:54 6 UNITS Dextrose 50 ml UD PRN IV 10/11/24 21:45 Nitroglycerin 0.4 mg Q5MINP PRN SL 10/11/24 22:00 Morphine Sulfate 2 mg Q30M PRN IV 10/11/24 22:00 Aspirin 162 mg DAILY PO 10/11/24 23:00 10/12/24 10:33 162 MG Lorazepam 1 mg ONCE PRN IV 10/11/24 23:00 Insulin Glargine 25 units QAM SC 10/12/24 14:30 10/12/24 15:54 25 UNITS Examination General Appearance: Cooperative. Well developed. Well nourished. NAD Head Exam: Normal inspection. Some facial asymmetry noted Neck Exam: Normal inspection. Non-tender. Normal alignment Pulmonary/Respiratory: Chest non-tender. Clear bilateral breath sounds, no crackles, no wheezing. Cardiovascular/Chest: Regular rate and rhythm. No murmurs. No JVD. Peripheral Pulses: 2+ Radial (R). 2+ Radial (L). 2+ Pedal (R). 2+ Pedal (L) Abdominal Exam: Normal bowel sounds. Soft. normal abdomen, no visible veins, Nontender. No hepatospenomegaly. No masses Ankle Exam: Negative ankle edema Lower extremities: Negative lower extremity edema Neuro/Mental Status: A&O x4. Coherent. Thoughts/Psych: Normal thought pattern. Appropriate mood and affect. Good judgement and insight Skin Exam: Normal inspection. Normal color. Warm. Dry Neurologic: 1+ strength in the right upper extremity, 1+ strength in the right lower extremity. A drift noted in the right lower extremity. D ysdiadochokinesia on the right. Some horizontal nystagmus noted. NIHSS 9 at the time of my evaluation laboratory and microbiology Laboratory Tests 10/12/24 04:52 Test 10/12/24 04:52 Range/Units Serum Glucose 203 H 74-106 mg/dL Labs and/or images reviewed: Labs reviewed by me, Image(s) reviewed by me Problem List/Assessment/Plan Problem List/Assessment/Plan Acute to subacute ischemic stroke Acute stroke syndrome with multiple strokes - head CT: 4 mm hypodense focus within the left lateral thalamus with a 5 mm hyperdense focus within the left basal ganglia which may represent lacunar infarcts of unknown chronicity versus prominent perivascular spaces. -CT angiography head and neck: Short-segment high-grade stenosis of the P2 segment of the left HEAD WAITER/WAITRESS BANQUET. This is age indeterminate. No encephalomalacia or CT signs of acute ischemia in the left cerebral lobe. Further evaluation with MRI could be completed if clinically warranted. The anterior circulation is patent. The basilar artery and right HEAD WAITER/WAITRESS BANQUET are patent. No large vessel occlusion or high- grade stenosis in the neck - MRI brain: Acute or subacute infarct in the left side of the nano. Findings consistent with chronic small-vessel ischemic disease and chronic lacunar infarcts in the left basal ganglia and left thalamus. - neurology on board - cardiology on board for possible ROMARIO - aspirin 162 mg p.o. daily - atorvastatin 40 mg p.o. - PT evaluation Hypertensive urgency Hypertension - hydralazine 10 mg IV q.6 as needed for SBP greater than 150 - metoprolol tartrate 50 mg b.i.d. Type 2 diabetes, uncontrolled Hb A1c 10.8 - insulin Lantus 25 units - mild sliding scale insulin Goals of care: Full code, discussed for >16 minutes on 10/12/2024 Plan discussed with patient Plan discussed with Dr. Parra Plan discussed with: Patient, Spouse, Son, Other (RN) My Orders My Orders Orders - APRIL TILLMAN Procedure Category Date Status Time Pt Request For Service PT 10/12/24 Logged 14:24 Insulin Lantus PHA 10/12/24 In Process (Glargine) (Lantus) 14:30 Date of Service: Oct 12, 2024 Billing Provider: KATLYN PARRA MD Common Visit Codes: [id number] INP/OBS CARE(HIGH) APRIL TILLMAN Oct 12, 2024 19:12 KATLYN PARRA MD Oct 22, 2024 12:35
[2024-10-12 20:00] VITALS: PULSE 67; PULSE 68; RESP 20; O2SAT 96
[2024-10-12 21:00] VITALS: BP 144/72; PULSE 67; RESP 20; TEMP 98.9; O2SAT 96
[2024-10-12] MEDS: CLOPIDOGREL BISULFATE 75 MG TAB PO SCH (22:00)
[2024-10-13] VITALS (10 sets, daily range): BP systolic 116–164; BP diastolic 47–103; PULSE 55–93; RESP 12–20; TEMP 97.7–98.3; O2SAT 92–96
[2024-10-13 06:41] LABS: Chloride 107 mmol/L (98-107); Sodium 142 mmol/L (136-145)
[2024-10-13 06:42] LABS: Anion Gap 11 (5-15); Carbon Dioxide 24 mmol/L (20-31)
[2024-10-13 06:43] LABS: Calcium 9.6 mg/dL (8.7-10.4)
[2024-10-13 06:46] LABS: Basophils # (auto) 0.1 10 ^3/uL (0-0.2); Basophils % (auto) 0.6 % (0.0-2.0); Eosinophils # (auto) 0.2 10 ^3/uL (0-0.8); Eosinophils % (auto) 1.6 % (0.0-7.0); Hematocrit 47.5 % (41.0-53.0); Hemoglobin 15.8 g/dL (13.5-17.5); Lymphocytes # (auto) 2.7 10 ^3/uL (0.4-5.4); Lymphocytes % (auto) 23.4 % (10.0-50.0); Mean Corpuscular Hemoglobin 28.3 pg (28.0-32.0); Mean Corpuscular Hgb Conc. 33.2 g/dL (32.0-36.0); Mean Corpuscular Volume 85.1 fL (80.0-100.0); Monocytes # (auto) 0.8 10 ^3/uL (0-1.3); Monocytes % (auto) 7.3 % (0.0-12.0); Neutrophils # (auto) 7.7 10 ^3/uL (1.6-8.6); Neutrophils % (auto) 67.1 % (37.0-80.0); Nucleated Red Blood Cells % 0.1 %; Platelet Count (auto) 218 10^3/uL (140-450); Red Blood Cells 5.58 10^6/uL (4.5-5.90); Red Cell Distribution Width 13.9 % (11.8-14.3); White Blood Cell 11.4 10^3/uL (4.4-10.8)
[2024-10-13 06:47] LABS: BUN/Creatinine Ratio 18.8 (10.0-20.0); Blood Urea Nitrogen 18 mg/dL (9-23)
[2024-10-13 06:51] LABS: Glucose 114 mg/dL (74-106); Potassium 3.3 mmol/L (3.5-5.1)
--- NOTE | 2024-10-13 13:52 | DVHPNRES ---
Progress Note Date Seen: Oct 13, 2024 Resident Creating Document: APRIL TILLMAN RESIDENT Medical Necessity Reason Pt with a Central, PICC or Fol: No Subjective Review of Systems Patient is a 69-year-old male with past medical history of diabetes, hypertension, who came in after sustaining a fall. According to the patient on 10/10/2024, when he was in the parking lot of his workplace he felt dizzy and right-sided weakness along with some loss of balance which led to a fall. Per patient he went home after that and continued to feel weakness on his right side and felt unstable on his feet which is what prompted this visit to the hospital. In the hospital, patient was noted to have a blood pressure of to [address] showed a 4 mm hypodense focus within the left lateral thalamus with 5 mm hypodense focus within the left basal ganglia which may represent lacunar infarcts of unknown chronicity versus prominent perivascular space. Per patient, he was diagnosed with diabetes and hypertension, however, does not take any medications at home except for aspirin 81 mg p.o. daily Past surgical history: Denies Home medications: Aspirin, NSAID as needed [id number] Past Hospitalization: In 2019 for COVID pneumonia Social & Personal history: Patient lives with family. Denies smoking, denies using alcohol, denies using drugs. Allergies: Denies Patient seen and examined at bedside. Patient is and oriented to time, place person and responding to all questions. Right upper extremity still with decreased strength, right lower extremity improving strength. Objective vital signs Vital Sign Date Time Temp Pulse Resp B/P (MAP) Pulse Ox O2 Delivery O2 Flow Rate FiO2 10/13/24 09:55 116/47 (70) 10/13/24 09:36 71 10/13/24 08:30 98.3 12 96 98.3 10/13/24 07:45 Room Air* 0 21 Total Intake and Output 10/12/24 10/12/24 10/13/24 15:00 23:00 07:00 Intake Total 300 ml 0 ml Output Total 1000 ml Balance -700 ml 0 ml medications Current Medications Medications Dose Ordered Sig/Luis Route Start Time Stop Time Status Last Admin Dose Admin Hydralazine HCl 10 mg Q6HP PRN IV 10/11/24 21:45 Metoprolol Tartrate 50 mg BID PO 10/11/24 22:00 10/12/24 10:32 50 MG Atorvastatin Calcium 40 mg HS PO 10/11/24 22:00 10/11/24 22:22 40 MG Sodium Chloride 1,000 ml @ 60 mls/hr [id number] IV 10/11/24 21:45 10/13/24 06:35 60 MLS/HR Acetaminophen/ Hydrocodone Bitart 1 tab Q4HP PRN PO 10/11/24 21:45 Ondansetron HCl 4 mg Q4HP PRN IV 10/11/24 21:45 Docusate Sodium 100 mg BIDPRN PRN PO 10/11/24 21:45 Acetaminophen 650 mg Q6HP PRN PO 10/11/24 21:45 Diagnostic Test (Pha) 1 strip IQ4HR 10/12/24 00:00 10/13/24 11:59 1 STRIP Insulin Human Regular IQ4HR SC 10/12/24 00:00 10/13/24 12:00 2 UNITS Dextrose 50 ml UD PRN IV 10/11/24 21:45 Nitroglycerin 0.4 mg Q5MINP PRN SL 10/11/24 22:00 Morphine Sulfate 2 mg Q30M PRN IV 10/11/24 22:00 Aspirin 162 mg DAILY PO 10/11/24 23:00 10/12/24 10:33 162 MG Lorazepam 1 mg ONCE PRN IV 10/11/24 23:00 Insulin Glargine 25 units QAM SC 10/12/24 14:30 10/13/24 06:29 25 UNITS Clopidogrel Bisulfate 75 mg DAILY PO 10/12/24 22:00 11/01/24 23:00 Examination General Appearance: Cooperative. Well developed. Well nourished. NAD Head Exam: Normal inspection. Some facial asymmetry noted, improved from prior exam Neck Exam: Normal inspection. Non-tender. Normal alignment Pulmonary/Respiratory: Chest non-tender. Clear bilateral breath sounds, no crackles, no wheezing. Cardiovascular/Chest: Regular rate and rhythm. No murmurs. No JVD. Peripheral Pulses: 2+ Radial (R). 2+ Radial (L). 2+ Pedal (R). 2+ Pedal (L) Abdominal Exam: Normal bowel sounds. Soft. normal abdomen, no visible veins, Nontender. No hepatospenomegaly. No masses Ankle Exam: Negative ankle edema Lower extremities: Negative lower extremity edema Neuro/Mental Status: A&O x4. Coherent. Thoughts/Psych: Normal thought pattern. Appropriate mood and affect. Good judgement and insight Skin Exam: Normal inspection. Normal color. Warm. Dry Neurologic: 1+ strength in the right upper extremity, 2+ strength in the right lower extremity. A drift noted in the right lower extremity. D ysdiadochokinesia on the right. Some horizontal nystagmus noted. laboratory and microbiology Laboratory Tests 10/13/24 05:26 Test 10/13/24 05:26 Range/Units Serum Glucose 114 H 74-106 mg/dL Labs and/or images reviewed: Labs reviewed by me, Image(s) reviewed by me Problem List/Assessment/Plan Problem List/Assessment/Plan Acute to subacute ischemic stroke Acute stroke syndrome with multiple strokes - head CT: 4 mm hypodense focus within the left lateral thalamus with a 5 mm hyperdense focus within the left basal ganglia which may represent lacunar infarcts of unknown chronicity versus prominent perivascular spaces. -CT angiography head and neck: Short-segment high-grade stenosis of the P2 segment of the left [employer]. This is age indeterminate. No encephalomalacia or CT signs of acute ischemia in the left cerebral lobe. Further evaluation with MRI could be completed if clinically warranted. The anterior circulation is patent. The basilar artery and right [employer] are patent. No large vessel occlusion or high- grade stenosis in the neck - MRI brain: Acute or subacute infarct in the left side of the nano. Findings consistent with chronic small-vessel ischemic disease and chronic lacunar infarcts in the left basal ganglia and left thalamus. - neurology on board - cardiology on board for possible ROMARIO - aspirin 162 mg p.o. daily - atorvastatin 40 mg p.o. - PT evaluation - started clopidogrel 75 mg p.o. daily Hypertensive urgency Hypertension - hydralazine 10 mg IV q.6 as needed for SBP greater than 150 - metoprolol tartrate 50 mg b.i.d. Type 2 diabetes, uncontrolled Hb A1c 10.8 - insulin Lantus 25 units - mild sliding scale insulin Goals of care: Full code, discussed for >16 minutes on 10/12/2024 Plan discussed with patient Plan discussed with Dr. Paulino Plan discussed with: Patient, Other (RN) My Orders My Orders Orders - APRIL TILLMAN RESIDENT Procedure Category Date Status Time Pt Request For Service PT 10/12/24 Logged 14:24 Insulin Lantus PHA 10/12/24 In Process (Glargine) (Lantus) 14:30 * Swallow Request ST 10/13/24 Transmitted 13:24 APRIL TILLMAN RESIDENT Oct 13, 2024 13:52
[2024-10-13] MEDS: POTASSIUM EFFERVESENT TAB 25 MEQ PO ONE (14:02)
[2024-10-14] VITALS (8 sets, daily range): BP systolic 112–183; BP diastolic 67–105; PULSE 64–81; RESP 14–18; TEMP 97.6–98.1; O2SAT 93–98
--- NOTE | 2024-10-14 08:28 | DVHPN2 ---
Progress Note Date Seen: Oct 14, 2024 Medical Necessity Reason Pt with a Central, PICC or Fol: No Subjective Patient reports: Feels better Objective vital signs Vital Sign Date Time Temp Pulse Resp B/P (MAP) Pulse Ox O2 Delivery O2 Flow Rate FiO2 10/14/24 05:00 98.0 68 18 141/75 (97) 96 98.0 10/13/24 20:00 Room Air* 0 21 Total Intake and Output 10/13/24 10/13/24 10/14/24 15:00 23:00 07:00 Intake Total 910 ml Output Total 500 ml Balance 410 ml medications Current Medications Medications Dose Ordered Sig/Luis Route Start Time Stop Time Status Last Admin Dose Admin Hydralazine HCl 10 mg Q6HP PRN IV 10/11/24 21:45 Metoprolol Tartrate 50 mg BID PO 10/11/24 22:00 10/13/24 21:43 50 MG Atorvastatin Calcium 40 mg HS PO 10/11/24 22:00 10/13/24 21:42 40 MG Sodium Chloride 1,000 ml @ 60 mls/hr [id number] IV 10/11/24 21:45 10/13/24 06:35 60 MLS/HR Acetaminophen/ Hydrocodone Bitart 1 tab Q4HP PRN PO 10/11/24 21:45 Ondansetron HCl 4 mg Q4HP PRN IV 10/11/24 21:45 Docusate Sodium 100 mg BIDPRN PRN PO 10/11/24 21:45 Acetaminophen 650 mg Q6HP PRN PO 10/11/24 21:45 Diagnostic Test (Pha) 1 strip IQ4HR 10/12/24 00:00 10/14/24 03:55 1 STRIP Insulin Human Regular IQ4HR SC 10/12/24 00:00 10/13/24 23:36 3 UNITS Dextrose 50 ml UD PRN IV 10/11/24 21:45 Nitroglycerin 0.4 mg Q5MINP PRN SL 10/11/24 22:00 Morphine Sulfate 2 mg Q30M PRN IV 10/11/24 22:00 Aspirin 162 mg DAILY PO 10/11/24 23:00 10/12/24 10:33 162 MG Lorazepam 1 mg ONCE PRN IV 10/11/24 23:00 Insulin Glargine 25 units QAM SC 10/12/24 14:30 2/22/25 06:29 25 UNITS Clopidogrel Bisulfate 75 mg DAILY PO 10/12/24 22:00 11/01/24 23:00 Examination: GENERAL:Abnormal, HEENT:Abnormal, LUNGS:Abnormal, CVS:Abnormal, ABDOMEN:Abnormal laboratory and microbiology Laboratory Tests 10/13/24 05:26 Test 10/13/24 05:26 Range/Units Serum Glucose 114 H 74-106 mg/dL Problem List/Assessment/Plan Problem List/Assessment/Plan cva htn hl recommend ROMARIO will proceed awaiting speech and swallow Plan discussed with: Patient Date of Service: Oct 14, 2024 Billing Provider: VALERIA HOU MD Common Visit Codes: NOT BILLABLE VALERIA HOU MD Oct 14, 2024 08:28
[2024-10-14] MEDS: ASPirin 81 mg TAB PO SCH (09:04)
[2024-10-14] MEDS: DOCUSATE SOD 100 MG CAP PO PRN (09:04)
[2024-10-14 09:31] LABS: Basophils # (auto) 0.1 10 ^3/uL (0-0.2); Basophils % (auto) 1.2 % (0.0-2.0); Eosinophils # (auto) 0.2 10 ^3/uL (0-0.8); Eosinophils % (auto) 2.3 % (0.0-7.0); Hematocrit 48.2 % (41.0-53.0); Hemoglobin 15.7 g/dL (13.5-17.5); Lymphocytes # (auto) 1.7 10 ^3/uL (0.4-5.4); Lymphocytes % (auto) 17.7 % (10.0-50.0); Mean Corpuscular Hemoglobin 27.9 pg (28.0-32.0); Mean Corpuscular Hgb Conc. 32.7 g/dL (32.0-36.0); Mean Corpuscular Volume 85.5 fL (80.0-100.0); Monocytes # (auto) 0.6 10 ^3/uL (0-1.3); Monocytes % (auto) 6.2 % (0.0-12.0); Neutrophils % (auto) 72.6 % (37.0-80.0); Nucleated Red Blood Cells % 0.1 %; Platelet Count (auto) 211 10^3/uL (140-450); Red Blood Cells 5.64 10^6/uL (4.5-5.90); White Blood Cell 9.6 10^3/uL (4.4-10.8)
[2024-10-14 09:46] LABS: Anion Gap 8 (5-15); Calcium 9.5 mg/dL (8.7-10.4); Carbon Dioxide 25 mmol/L (20-31)
[2024-10-14 09:51] LABS: BUN/Creatinine Ratio 18.4 (10.0-20.0); Blood Urea Nitrogen 19 mg/dL (9-23)
[2024-10-14 09:54] LABS: Chloride 108 mmol/L (98-107); Glucose 154 mg/dL (74-106); Potassium 3.9 mmol/L (3.5-5.1); Sodium 141 mmol/L (136-145)
[2024-10-14] MEDS: hydrALAZINE HCL 20 MG/ML VL IV PRN (12:48)
--- NOTE | 2024-10-14 15:49 | DVHPNRES ---
Progress Note Date Seen: Oct 14, 2024 Resident Creating Document: MARTHA BHAKTA RESIDENT Medical Necessity Reason Pt with a Central, PICC or Fol: No Subjective Review of Systems Mango Meek is a 69-year-old male patient who presents to ED after sustaining a fall. According to the patient on 10/10/2024, when he was in the parking lot of his workplace he felt dizzy and right-sided weakness along with some loss of balance which led to a fall. Per patient he went home after that and continued to feel weakness on his right side and felt unstable on his feet which is what prompted this visit to the hospital. In the hospital, patient was noted to have a blood pressure of to 204/103mmHg. Per patient, he was diagnosed with diabetes and hypertension, however, does not take any medications at home except for aspirin 81 mg p.o. daily. Denies any other associated symptoms Past medical history: Diabetes, hypertension, COVID pneumonia in 2019 Past surgical history: Denies Social & Personal history: Patient lives with family. Denies tobacco, alcohol and other drug abuse. Allergies: Denies Home medications: Aspirin, NSAID as needed [id number] Patient seen and examined at bedside. Currently has no new complaints, still persists with decreased motility in right brachial-crural region Objective vital signs Vital Sign Date Time Temp Pulse Resp B/P (MAP) Pulse Ox O2 Delivery O2 Flow Rate FiO2 10/14/24 12:52 98.0 70 16 161/74 (103) 98 98.0 10/13/24 20:00 Room Air* 0 21 Total Intake and Output 10/13/24 10/13/24 10/14/24 15:00 23:00 07:00 Intake Total 910 ml Output Total 500 ml Balance 410 ml medications Current Medications Medications Dose Ordered Sig/Luis Route Start Time Stop Time Status Last Admin Dose Admin Hydralazine HCl 10 mg Q6HP PRN IV 10/11/24 21:45 10/14/24 12:48 10 MG Metoprolol Tartrate 50 mg BID PO 10/11/24 22:00 10/14/24 09:05 50 MG Atorvastatin Calcium 40 mg HS PO 10/11/24 22:00 10/13/24 21:42 40 MG Sodium Chloride 1,000 ml @ 60 mls/hr [id number] IV 10/11/24 21:45 10/13/24 06:35 60 MLS/HR Acetaminophen/ Hydrocodone Bitart 1 tab Q4HP PRN PO 10/11/24 21:45 Ondansetron HCl 4 mg Q4HP PRN IV 10/11/24 21:45 Docusate Sodium 100 mg BIDPRN PRN PO 10/11/24 21:45 10/14/24 09:04 100 MG Acetaminophen 650 mg Q6HP PRN PO 10/11/24 21:45 Diagnostic Test (Pha) 1 strip IQ4HR 10/12/24 00:00 10/14/24 12:12 1 STRIP Insulin Human Regular IQ4HR SC 10/12/24 00:00 10/14/24 11:45 6 UNITS Dextrose 50 ml UD PRN IV 10/11/24 21:45 Nitroglycerin 0.4 mg Q5MINP PRN SL 10/11/24 22:00 Morphine Sulfate 2 mg Q30M PRN IV 10/11/24 22:00 Lorazepam 1 mg ONCE PRN IV 10/11/24 23:00 Insulin Glargine 25 units QAM SC 10/12/24 14:30 10/13/24 06:29 25 UNITS Clopidogrel Bisulfate 75 mg DAILY PO 10/12/24 22:00 11/01/24 23:00 10/14/24 09:05 75 MG Aspirin 81 mg DAILY PO 10/14/24 10:00 10/14/24 09:04 81 MG Examination Patient lying in bed, in no acute distress General: Lucid, afebrile, mucosae are moist Cardiovascular: Normal S1 and S2. No murmurs, gallops or rubs Respiratory: Normal ventilation mechanics. Clear lung sounds on auscultation Abdomen: Soft, nontender, no organomegaly, normal bowel sounds MSK/skin: Mobilizes 4 limbs. Skin is dry and warm Neurological: Oriented in 3 spheres. Presents decreased muscle strength and tonicity in right brachial-crural region. No other motor no sensitive deficits. Pupils are isocoric and reactive laboratory and microbiology Laboratory Tests 10/14/24 09:13 Test 10/14/24 09:13 Range/Units Serum Glucose 154 H 74-106 mg/dL Problem List/Assessment/Plan Problem List/Assessment/Plan # Acute to subacute ischemic stroke in left nano. Multiple chronic strokes Head CT: 4 mm hypodense focus within the left lateral thalamus with a 5 mm hyperdense focus within the left basal ganglia which may represent lacunar infarcts of unknown chronicity versus prominent perivascular spaces. CT angiography head and neck: Short-segment high-grade stenosis of the P2 segment of the left FREIGHT FLAGMAN. This is age indeterminate. No encephalomalacia or CT signs of acute ischemia in the left cerebral lobe. Further evaluation with MRI could be completed if clinically warranted. The anterior circulation is patent. The basilar artery and right FREIGHT FLAGMAN are patent. No large vessel occlusion or high- grade stenosis in the neck MRI brain: Acute or subacute infarct in the left side of the nano. Findings consistent with chronic small-vessel ischemic disease and chronic lacunar infarcts in the left basal ganglia and left thalamus. Neurology on board: Optimize medical treatment (on dap and statins, did not qualify for fibrinolytic treatment since patient was outside of therapeutic window), due to multiple chronic strokes recommend completing ROMARIO, consulted Cardiology Cardiology on board: Planning ROMARIO on Continue on telemetry status # Hypertension Hydralazine 10 mg IV q.6 as needed for SBP greater than 150 Metoprolol tartrate 50 mg b.i.d. Completed echocardiogram: LVEF 60%, moderate LVH, normal RV function and no severe valve abnormalities (aortic sclerosis) # Type 2 diabetes, uncontrolled (Hb A1c 10.8) Insulin Lantus 25 units Mild sliding scale insulin # Dyslipidemia Cholesterol 201, LDL cholesterol 149 and HDL cholesterol 39. Currently on atorvastatin 80 mg p.o. daily #Obesity Gave advice on healthy lifestyle habits Goals of care discussed with patient for over 18 minutes: Full code status Discussed plan with Dr. Paulino, patient, daughter and nurses: Planning to complete ROMARIO on 10/15/2024 to rule out cardio-embolic source of multiple stroke sites. Patient has poor prognosis Plan discussed with: Patient, Daughter, Other (Nurses) My Orders My Orders Orders - MARTHA BHAKTA RESIDENT Procedure Category Date Status Time Urinalysis LAB 10/14/24 Logged 08:20 Aspirin Tablet PHA 10/14/24 In Process 10:00 Dietary Evaluation Review Comments: 1) Advance to 60g [facility] cardiac diet when medically feasible, pending [employer] approval 2) Refer to outpatient RD/CDCES for diabetes education and weight management 3) Continue to monitor PO intake, labs, and skin integrity Expected Outcomes/Goals: 1) appetite and labs to improve 2) diet to advance 3) f/u in 5 days MARTHA BHAKTA RESIDENT Oct 14, 2024 15:49
--- NOTE | 2024-10-14 23:14 | DVHPN2 ---
Progress Note - Dictate Date Seen: Oct 14, 2024 Medical Necessity Reason Pt with a Central, PICC or Fol: No Subjective Mr. Meek is a 69 years old right handed gentleman with a history of hypertension, diabetes, obesity, the patient was brought to the [facility] on 10/13/2024 with a chief complaint of right-sided weakness, I have seen and examined the patient, I have discussed with his nurse, he was doing fine, alert and oriented x3, no new complaints ROMARIO in the morning UDS, 10/12/2024: Negative CBC, 10/11/2024: Unremarkable CMP, 10/11/2024: Unremarkable HGB A1c, 10/11/2024: 10.8 TG/HDL/LDL/HDL, 10/11/2024: 145/201/149/39 Echocardiogram, 10/12/2024: lvef 60% by visual estimate moderate LVH normal rv function no severe valve abnormalites noted aortic sclerosis CT head, 10/11/2024: 4 mm hypodense focus within the left lateral thalamus with 5 mm hypodense focus within the left basal ganglia which may represent lacunar infarcts of unknown chronicity versus prominent perivascular spaces. MRI would be helpful for further evaluation (I saw hypodense in left nano) CTA head, neck, 10/11/2024: 1. 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 This is age indeterminate. No encephalomalacia or CT signs of acute ischemia in the left cerebral lobe. Further evaluation with MRI could be completed if clinically warranted. 2. The anterior circulation is patent. The basilar artery and right LO[employer] SERVICING OFFICER are patent. 3. No large vessel occlusion or high-grade stenosis in the neck MRI head, 10/12/2024: 1. Acute or subacute infarct in the left side of the nano. 2. Findings consistent with chronic small-vessel ischemic disease and chronic lacunar infarcts in the left basal ganglia and left thalamus 3. Additional findings as described above (Chronic lacunar infarcts in the left basal ganglia left thalamus) vital signs Vital Sign Date Time Temp Pulse Resp B/P (MAP) Pulse Ox O2 Delivery O2 Flow Rate FiO2 10/14/24 21:02 74 166/89 10/14/24 21:00 97.9 18 94 97.9 10/14/24 08:00 Room Air* 0 21 Total Intake and Output 10/13/24 10/13/24 10/14/24 15:00 23:00 07:00 Intake Total 910 ml Output Total 500 ml Balance 410 ml medications Current Medications Medications Dose Ordered Sig/Luis Route Start Time Stop Time Status Last Admin Dose Admin Hydralazine HCl 10 mg Q6HP PRN IV 10/11/24 21:45 10/14/24 12:48 10 MG Metoprolol Tartrate 50 mg BID PO 10/11/24 22:00 10/14/24 21:02 50 MG Atorvastatin Calcium 40 mg HS PO 10/11/24 22:00 10/14/24 21:01 40 MG Sodium Chloride 1,000 ml @ 60 mls/hr [id number] IV 10/11/24 21:45 10/14/24 16:25 60 MLS/HR Acetaminophen/ Hydrocodone Bitart 1 tab Q4HP PRN PO 10/11/24 21:45 Ondansetron HCl 4 mg Q4HP PRN IV 10/11/24 21:45 Docusate Sodium 100 mg BIDPRN PRN PO 10/11/24 21:45 10/14/24 09:04 100 MG Acetaminophen 650 mg Q6HP PRN PO 10/11/24 21:45 Diagnostic Test (Pha) 1 strip IQ4HR 10/12/24 00:00 10/14/24 19:45 1 STRIP Insulin Human Regular IQ4HR SC 10/12/24 00:00 10/14/24 19:46 4 UNITS Dextrose 50 ml UD PRN IV 10/11/24 21:45 Nitroglycerin 0.4 mg Q5MINP PRN SL 10/11/24 22:00 Morphine Sulfate 2 mg Q30M PRN IV 10/11/24 22:00 Lorazepam 1 mg ONCE PRN IV 10/11/24 23:00 Insulin Glargine 25 units QAM SC 10/12/24 14:30 10/13/24 06:29 25 UNITS Clopidogrel Bisulfate 75 mg DAILY PO 10/12/24 22:00 11/01/24 23:00 10/14/24 09:05 75 MG Aspirin 81 mg DAILY PO 10/14/24 10:00 10/14/24 09:04 81 MG objective General: the patient is well developed and nourished. No acute distress. MENTAL STATUS: Awake and alert. Oriented to person, place, time and general circumstances. Able to give personal history. SPEECH, LANGUAGE, HIGHER CORTICAL FUNCTION: no aphasia or dysathria. CRANIAL NERVES: Intact visual barrett to confrontation. The optic discs were sharp. Pupils are equal, round and reactive. EOMs full and conjugate. No nystagmus. Facial sensation intact in all three divisions bilaterally. Mandibular strength intact. Facial muscles symmetrical and strength intact. SENSATION: Sensation to touch and pinprick is normal. MOTOR: Normal tone in the upper and lower extremity. Normal muscle bulk. No fasciculations. No abnormal movements or posturing. Muscle strength of the major groups in the right extremities: Arm: T2/5, Le/5. REFLEXES: Deep tendon reflexes are symmetrical. No pathological reflexes. CEREBELLAR/COORDINATION: Finger to nose is normal in the left arm GAIT/STATION: deferred. laboratory and microbiology Laboratory Tests 10/14/24 09:13 Test 10/14/24 09:13 Range/Units Serum Glucose 154 H 74-106 mg/dL Problem List Acute stroke syndrome Multiple strokes in CT brain scan Stroke risk fact: Hypertension, diabetes, Obesity Assessment/Plan Monitoring Supportive treatment Telemetry ROMARIO Lipitor 40 mg daily Aspirin 162 mg daily (home medication) Plavix 75 mg q.d. for 21 days Up to chair Physical therapy More recommendation per clinical course This medical document was created using an electronic medical record system with [employer] dictation system. Although this document has been carefully reviewed, there may still be some phonetic and typographical errors. These areas are purely typographical due to imperfections of the software programs, and do not reflect any compromise in the patient's medical care. Prognosis poor Dietary Evaluation Review Comments: 1) Advance to 60g [facility] cardiac diet when medically feasible, pending [employer] approval 2) Refer to outpatient RD/CDCES for diabetes education and weight management 3) Continue to monitor PO intake, labs, and skin integrity Expected Outcomes/Goals: 1) appetite and labs to improve 2) diet to advance 3) f/u in 5 days Plan discussed with: Patient, Other RHETT MACKENZIE MD Oct 14, 2024 23:14
[2024-10-15] VITALS (10 sets, daily range): BP systolic 130–159; BP diastolic 60–91; PULSE 61–81; RESP 17–20; TEMP 97.2–98.5; O2SAT 94–100
[2024-10-15 06:47] LABS: Basophils # (auto) 0.1 10 ^3/uL (0-0.2); Basophils % (auto) 0.7 % (0.0-2.0); Eosinophils # (auto) 0.3 10 ^3/uL (0-0.8); Eosinophils % (auto) 3.2 % (0.0-7.0); Hematocrit 48.1 % (41.0-53.0); Hemoglobin 15.8 g/dL (13.5-17.5); Lymphocytes # (auto) 2.4 10 ^3/uL (0.4-5.4); Lymphocytes % (auto) 25.8 % (10.0-50.0); Mean Corpuscular Hemoglobin 28.1 pg (28.0-32.0); Mean Corpuscular Hgb Conc. 32.9 g/dL (32.0-36.0); Mean Corpuscular Volume 85.5 fL (80.0-100.0); Monocytes # (auto) 0.8 10 ^3/uL (0-1.3); Monocytes % (auto) 8.9 % (0.0-12.0); Neutrophils # (auto) 5.7 10 ^3/uL (1.6-8.6); Neutrophils % (auto) 61.4 % (37.0-80.0); Nucleated Red Blood Cells % 0.1 %; Platelet Count (auto) 200 10^3/uL (140-450); Red Blood Cells 5.62 10^6/uL (4.5-5.90); Red Cell Distribution Width 14.3 % (11.8-14.3); White Blood Cell 9.2 10^3/uL (4.4-10.8)
[2024-10-15 06:50] LABS: Potassium 3.6 mmol/L (3.5-5.1); Sodium 142 mmol/L (136-145)
[2024-10-15 06:51] LABS: Anion Gap 11 (5-15); Calcium 9.8 mg/dL (8.7-10.4); Carbon Dioxide 23 mmol/L (20-31)
[2024-10-15 06:56] LABS: BUN/Creatinine Ratio 18.1 (10.0-20.0); Blood Urea Nitrogen 17 mg/dL (9-23); Chloride 108 mmol/L (98-107)
[2024-10-15 06:58] LABS: Phosphorus 3.8 mg/dL (2.4-5.1)
[2024-10-15 07:06] LABS: Glucose 120 mg/dL (74-106)
[2024-10-15 07:13] LABS: INR 1.04 (0.9-1.15); Partial Thromboplastin Time 29.4 SEC (24.5-34.5)
[2024-10-15 11:07] LABS: Urine Bacteria FEW /hpf (None Seen); Urine Blood Negative /uL (Negative); Urine Clarity Clear (Clear); Urine Color Yellow (Yellow); Urine Mucus FEW (None Seen); Urine Protein, UAD Negative (Negative); Urine Specific Gravity 1.025 (1.001-1.035); Urine Sperm PRESENT /hpf (None Seen); Urine Squamous Epithelial Cell None Seen /hpf (<5); Urine Urobilinogen 2 mg/dL (Negative); Urine pH 6.5 (5.0-9.0)
--- NOTE | 2024-10-15 11:51 | DVHPNRES ---
Progress Note Date Seen: Oct 15, 2024 Resident Creating Document: APRIL TILLMAN RESIDENT Medical Necessity Reason Pt with a Central, PICC or Fol: No Subjective Review of Systems Patient is a 69-year-old male with past medical history of diabetes, hypertension, who came in after sustaining a fall. According to the patient on 10/10/2024, when he was in the parking lot of his workplace he felt dizzy and right-sided weakness along with some loss of balance which led to a fall. Per patient he went home after that and continued to feel weakness on his right side and felt unstable on his feet which is what prompted this visit to the hospital. In the hospital, patient was noted to have a blood pressure of to [address] showed a 4 mm hypodense focus within the left lateral thalamus with 5 mm hypodense focus within the left basal ganglia which may represent lacunar infarcts of unknown chronicity versus prominent perivascular space. Per patient, he was diagnosed with diabetes and hypertension, however, does not take any medications at home except for aspirin 81 mg p.o. daily Past surgical history: Denies Home medications: Aspirin, NSAID as needed [id number] Past Hospitalization: In 2019 for COVID pneumonia Social & Personal history: Patient lives with family. Denies smoking, denies using alcohol, denies using drugs. Allergies: Denies Patient seen and examined at bedside. Patient is and oriented to time, place person and responding to all questions. Right upper extremity still with decreased strength, right lower extremity improving strength. Patient cleared swallow evaluation and was subsequently started on a mechanical soft diet. Scheduled to undergo ROMARIO today. Per physical therapy recommendations patient will need acute rehab facility/[place] Objective vital signs Vital Sign Date Time Temp Pulse Resp B/P (MAP) Pulse Ox O2 Delivery O2 Flow Rate FiO2 10/15/24 09:00 97.7 66 18 159/91 (113) 94 97.7 10/15/24 08:00 Room Air* 0 21 Total Intake and Output 10/14/24 10/14/24 10/15/24 15:00 23:00 07:00 Intake Total 1200 ml 1460 ml Output Total 602 ml 425 ml Balance 598 ml 1035 ml medications Current Medications Medications Dose Ordered Sig/Luis Route Start Time Stop Time Status Last Admin Dose Admin Hydralazine HCl 10 mg Q6HP PRN IV 10/11/24 21:45 10/15/24 08:57 10 MG Metoprolol Tartrate 50 mg BID PO 10/11/24 22:00 10/15/24 08:57 50 MG Atorvastatin Calcium 40 mg HS PO 10/11/24 22:00 10/14/24 21:01 40 MG Sodium Chloride 1,000 ml @ 60 mls/hr [id number] IV 10/11/24 21:45 10/14/24 16:25 60 MLS/HR Acetaminophen/ Hydrocodone Bitart 1 tab Q4HP PRN PO 10/11/24 21:45 Ondansetron HCl 4 mg Q4HP PRN IV 10/11/24 21:45 Docusate Sodium 100 mg BIDPRN PRN PO 10/11/24 21:45 10/14/24 09:04 100 MG Acetaminophen 650 mg Q6HP PRN PO 10/11/24 21:45 Diagnostic Test (Pha) 1 strip IQ4HR 10/12/24 00:00 10/15/24 08:00 1 STRIP Insulin Human Regular IQ4HR SC 10/12/24 00:00 10/15/24 08:37 2 UNITS Dextrose 50 ml UD PRN IV 10/11/24 21:45 Nitroglycerin 0.4 mg Q5MINP PRN SL 10/11/24 22:00 Morphine Sulfate 2 mg Q30M PRN IV 10/11/24 22:00 Lorazepam 1 mg ONCE PRN IV 10/11/24 23:00 Insulin Glargine 25 units QAM SC 10/12/24 14:30 10/13/24 06:29 25 UNITS Clopidogrel Bisulfate 75 mg DAILY PO 10/12/24 22:00 11/01/24 23:00 10/14/24 09:05 75 MG Aspirin 81 mg DAILY PO 10/14/24 10:00 10/14/24 09:04 81 MG Examination General Appearance: Cooperative. Well developed. Well nourished. NAD Head Exam: Normal inspection. Some facial asymmetry noted, improved from prior exam Neck Exam: Normal inspection. Non-tender. Normal alignment Pulmonary/Respiratory: Chest non-tender. Clear bilateral breath sounds, no crackles, no wheezing. Cardiovascular/Chest: Regular rate and rhythm. No murmurs. No JVD. Peripheral Pulses: 2+ Radial (R). 2+ Radial (L). 2+ Pedal (R). 2+ Pedal (L) Abdominal Exam: Normal bowel sounds. Soft. normal abdomen, no visible veins, Nontender. No hepatospenomegaly. No masses Ankle Exam: Negative ankle edema Lower extremities: Negative lower extremity edema Neuro/Mental Status: A&O x4. Coherent. Thoughts/Psych: Normal thought pattern. Appropriate mood and affect. Good judgement and insight Skin Exam: Normal inspection. Normal color. Warm. Dry Neurologic: 1+ strength in the right upper extremity, 2+ strength in the right lower extremity. A drift noted in the right lower extremity, improved from prior exam. Dysdiadochokinesia on the right, improved from prior exam. laboratory and microbiology Laboratory Tests 10/15/24 05:49 Test 10/15/24 05:49 Range/Units Serum Glucose 120 H 74-106 mg/dL Labs and/or images reviewed: Labs reviewed by me, Image(s) reviewed by me Problem List/Assessment/Plan Problem List/Assessment/Plan Acute to subacute ischemic stroke Acute stroke syndrome with multiple strokes - head CT: 4 mm hypodense focus within the left lateral thalamus with a 5 mm hyperdense focus within the left basal ganglia which may represent lacunar infarcts of unknown chronicity versus prominent perivascular spaces. -CT angiography head and neck: Short-segment high-grade stenosis of the P2 segment of the left GORING CUTTER. This is age indeterminate. No encephalomalacia or CT signs of acute ischemia in the left cerebral lobe. Further evaluation with MRI could be completed if clinically warranted. The anterior circulation is patent. The basilar artery and right GORING CUTTER are patent. No large vessel occlusion or high- grade stenosis in the neck - MRI brain: Acute or subacute infarct in the left side of the nano. Findings consistent with chronic small-vessel ischemic disease and chronic lacunar infarcts in the left basal ganglia and left thalamus. - echocardiogram: EF 60%. Moderate LVH. Normal RV function. No severe valve abnormalities noted. Aortic sclerosis - neurology on board - cardiology on board for ROMARIO - patient is scheduled to undergo ROMARIO today - aspirin 162 mg p.o. daily - atorvastatin 40 mg p.o. - PT evaluation - started clopidogrel 75 mg p.o. daily Hypertensive urgency Hypertension - hydralazine 10 mg IV q.6 as needed for SBP greater than 150 - metoprolol tartrate 50 mg b.i.d. Type 2 diabetes, uncontrolled Hb A1c 10.8 - insulin Lantus 25 units - mild sliding scale insulin Goals of care: Full code, discussed for >16 minutes on 10/12/2024 Plan discussed with patient Plan discussed with Dr. Parra Plan discussed with: Patient, Other (RN) Dietary Evaluation Review Comments: 1) Advance to 60g [facility] cardiac diet when medically feasible, pending [employer]ANK[employer]KER approval 2) Refer to outpatient RD/CDCES for diabetes education and weight management 3) Continue to monitor PO intake, labs, and skin integrity Expected Outcomes/Goals: 1) appetite and labs to improve 2) diet to advance 3) f/u in 5 days Date of Service: Nov 12, 2024 Billing Provider: KATLYN PARRA MD Common Visit Codes: [id number] INP/OBS CARE(HIGH) APRIL TILLMAN RESIDENT Oct 15, 2024 11:51 KATLYN PARRA MD Oct 22, 2024 12:36
[2024-10-15] MEDS: MIDAZOLAM HCL 5 MG/ML-1ML VIAL IM ONE (13:16)
[2024-10-15] MEDS: MIDAZOLAM HCL 2MG/2ML 2ml VIAL (1mg/ml) ONE (13:16)
[2024-10-15] MEDS: LIDOCAINE VISCOUS 2% 15ML UD PO ONE ×2 (13:16→14:38)
[2024-10-15] MEDS: MIDAZOLAM HCL 2MG/2ML 2ml VIAL (1mg/ml) IV ONE ×2 (13:16→14:38)
[2024-10-15] MEDS: fentaNYL CITRATE 100 MCG/2 ML VL IV ONE ×2 (13:18→14:38)
--- NOTE | 2024-10-15 14:23 | DVHPN2 ---
Progress Note Date Seen: Oct 15, 2024 Medical Necessity Reason Pt with a Central, PICC or Fol: No Subjective Patient reports: Feels better Other Systems: sp [place] Objective vital signs Vital Sign Date Time Temp Pulse Resp B/P (MAP) Pulse Ox O2 Delivery O2 Flow Rate FiO2 10/15/24 09:00 97.7 66 18 159/91 (113) 94 97.7 10/15/24 08:00 Room Air* 0 21 Total Intake and Output 10/14/24 10/14/24 10/15/24 15:00 23:00 07:00 Intake Total 1200 ml 1460 ml Output Total 602 ml 425 ml Balance 598 ml 1035 ml medications Current Medications Medications Dose Ordered Sig/Luis Route Start Time Stop Time Status Last Admin Dose Admin Hydralazine HCl 10 mg Q6HP PRN IV 10/11/24 21:45 10/15/24 08:57 10 MG Metoprolol Tartrate 50 mg BID PO 10/11/24 22:00 10/15/24 08:57 50 MG Atorvastatin Calcium 40 mg HS PO 10/11/24 22:00 10/14/24 21:01 40 MG Sodium Chloride 1,000 ml @ 60 mls/hr [id number] IV 10/11/24 21:45 10/14/24 16:25 60 MLS/HR Acetaminophen/ Hydrocodone Bitart 1 tab Q4HP PRN PO 10/11/24 21:45 Ondansetron HCl 4 mg Q4HP PRN IV 10/11/24 21:45 Docusate Sodium 100 mg BIDPRN PRN PO 10/11/24 21:45 10/14/24 09:04 100 MG Acetaminophen 650 mg Q6HP PRN PO 10/11/24 21:45 Diagnostic Test (Pha) 1 strip IQ4HR 10/12/24 00:00 10/15/24 08:00 1 STRIP Insulin Human Regular IQ4HR SC 10/12/24 00:00 10/15/24 08:37 2 UNITS Dextrose 50 ml UD PRN IV 10/11/24 21:45 Nitroglycerin 0.4 mg Q5MINP PRN SL 10/11/24 22:00 Morphine Sulfate 2 mg Q30M PRN IV 10/11/24 22:00 Lorazepam 1 mg ONCE PRN IV 10/11/24 23:00 Insulin Glargine 25 units QAM SC 10/12/24 14:30 10/13/24 06:29 25 UNITS Clopidogrel Bisulfate 75 mg DAILY PO 10/12/24 22:00 11/01/24 23:00 10/14/24 09:05 75 MG Aspirin 81 mg DAILY PO 10/14/24 10:00 10/14/24 09:04 81 MG Examination: GENERAL:Abnormal, HEENT:Abnormal, LUNGS:Abnormal, CVS:Abnormal, ABDOMEN:Abnormal laboratory and microbiology Laboratory Tests 10/15/24 05:49 Test 10/15/24 05:49 Range/Units Serum Glucose 120 H 74-106 mg/dL Problem List/Assessment/Plan Problem List/Assessment/Plan cva htn hl sp [place]by normal lvef no clot no large PFO noted outpt fu will sign off Plan discussed with: Patient My Orders My Orders Orders - VALERIA HOU MD Procedure Category Date Status Time Post Cath Vital Signs LAUREN 10/15/24 In Process Q 15min Mechanical Soft Diet DIET 10/15/24 Transmitted Dinner Communication Order ORDERS 10/15/24 Transmitted 13:42 Dietary Evaluation Review Comments: 1) Advance to 60g [facility] cardiac diet when medically feasible, pending APRON WORKER approval 2) Refer to outpatient RD/CDCES for diabetes education and weight management 3) Continue to monitor PO intake, labs, and skin integrity Expected Outcomes/Goals: 1) appetite and labs to improve 2) diet to advance 3) f/u in 5 days Date of Service: Oct 15, 2024 Billing Provider: VALERIA HOU MD Common Visit Codes: NOT BILLABLE VALERIA HOU MD Oct 15, 2024 14:23
--- NOTE | 2024-10-15 14:26 | DVHOP2 ---
Operative Report Operative Report CARDIAC HUMAN RESOURCES COMPENSATION ANALYST PROCEDURE REPORT [place], [place] Date of Service: 10/15/24 Heel Sprayer First: Valeria Hou MD PROCEDURES PERFORMED: trans esophageal echocardiogram, conscious sedation <15 mins, doppler assesment complete ROMARIO PREOPERATIVE DIAGNOSES:CVA POSTOP DIAGNOSIS: CVA DESCRIPTION OF PROCEDURE: The patient or appropriate family signed informed consent understanding the risks, benefits and alternatives of the procedure, they wished to proceed. The patient was brought to the cardiac geoscience laboratory technician in n.p.o. state. the patient was given 15 ml of oral viscous lidocaine. the patient was placed in a left lateral decubitus position with bite block in mouth. NExt conscious sedation was administered per geoscience laboratory technician protocol with _1_ mg of versed and _50_ mcg of fentanyl. Next a ROMARIO probe was advanced to the mid esophagus with ease and multiple planar images obtained. At the completion of the procedure , probe was removed and there were no immediate complications. FINDINGS: Left Ventricle: Normal LV size and function, LVEF estimated at 60% moderate concentric LVH noted. Right Ventricle: NOrmal RV size and function Left atrium: enlarged, Right atrium: mild enlarged Left atrial appendage: no thrombus noted Aortic valve: trileaflet valve, no severe or AI Mitral Valve: structurally normal, mild mitral regurg, no MS Tricuspid Valve: mild tricuspid regurgitaiton, no TS Pulmonic Valve: strucutrally normal, no severe PIor PS Interatrial septum: negative color flow for R to L shunt, bubble study done doesnt show any severe R to L shunting Ascending aorta: minimal plaquing VALERIA HOU MD Oct 15, 2024 14:26
[2024-10-16] VITALS (7 sets, daily range): BP systolic 111–153; BP diastolic 71–86; PULSE 54–81; RESP 17–21; TEMP 97.7–98.3; O2SAT 94–97
[2024-10-16 07:45] LABS: Basophils # (auto) 0 10 ^3/uL (0-0.2); Basophils % (auto) 0.4 % (0.0-2.0); Eosinophils # (auto) 0.3 10 ^3/uL (0-0.8); Eosinophils % (auto) 3.2 % (0.0-7.0); Hematocrit 44.4 % (41.0-53.0); Hemoglobin 14.9 g/dL (13.5-17.5); Lymphocytes # (auto) 2.2 10 ^3/uL (0.4-5.4); Lymphocytes % (auto) 24.1 % (10.0-50.0); Mean Corpuscular Hemoglobin 28.9 pg (28.0-32.0); Mean Corpuscular Hgb Conc. 33.6 g/dL (32.0-36.0); Mean Corpuscular Volume 85.8 fL (80.0-100.0); Monocytes # (auto) 0.8 10 ^3/uL (0-1.3); Monocytes % (auto) 8.4 % (0.0-12.0); Neutrophils # (auto) 5.9 10 ^3/uL (1.6-8.6); Neutrophils % (auto) 63.9 % (37.0-80.0); Platelet Count (auto) 197 10^3/uL (140-450); Red Blood Cells 5.17 10^6/uL (4.5-5.90); Red Cell Distribution Width 13.9 % (11.8-14.3); White Blood Cell 9.2 10^3/uL (4.4-10.8)
[2024-10-16 08:01] LABS: Anion Gap 10 (5-15); Carbon Dioxide 23 mmol/L (20-31); Sodium 141 mmol/L (136-145)
[2024-10-16 08:02] LABS: Calcium 9.5 mg/dL (8.7-10.4)
[2024-10-16 08:07] LABS: BUN/Creatinine Ratio 16.8 (10.0-20.0); Blood Urea Nitrogen 17 mg/dL (9-23)
[2024-10-16 08:09] LABS: Chloride 108 mmol/L (98-107); Glucose 122 mg/dL (74-106); Potassium 3.5 mmol/L (3.5-5.1)
--- NOTE | 2024-10-16 16:50 | DVHPNRES ---
Progress Note Date Seen: Oct 16, 2024 Resident Creating Document: APRIL TILLMAN RESIDENT Medical Necessity Reason Pt with a Central, PICC or Fol: No Subjective Review of Systems Patient is a 69-year-old male with past medical history of diabetes, hypertension, who came in after sustaining a fall. According to the patient on 10/10/2024, when he was in the parking lot of his workplace he felt dizzy and right-sided weakness along with some loss of balance which led to a fall. Per patient he went home after that and continued to feel weakness on his right side and felt unstable on his feet which is what prompted this visit to the hospital. In the hospital, patient was noted to have a blood pressure of to [address] showed a 4 mm hypodense focus within the left lateral thalamus with 5 mm hypodense focus within the left basal ganglia which may represent lacunar infarcts of unknown chronicity versus prominent perivascular space. Per patient, he was diagnosed with diabetes and hypertension, however, does not take any medications at home except for aspirin 81 mg p.o. daily Past surgical history: Denies Home medications: Aspirin, NSAID as needed [id number] Past Hospitalization: In 2019 for COVID pneumonia Social & Personal history: Patient lives with family. Denies smoking, denies using alcohol, denies using drugs. Allergies: Denies Patient seen and examined at bedside. Patient is and oriented to time, place person and responding to all questions. Right upper extremity still with decreased strength, right lower extremity improving strength. Patient cleared swallow evaluation and was subsequently started on a mechanical soft diet. Scheduled to undergo ROMARIO yesterday, no clots of PFO noted. Per physical therapy recommendations patient will need acute rehab facility/[place] Objective vital signs Vital Sign Date Time Temp Pulse Resp B/P (MAP) Pulse Ox O2 Delivery O2 Flow Rate FiO2 10/16/24 13:00 98.3 67 18 111/71 (84) 95 98.3 10/16/24 08:00 Room Air* 0 21 Total Intake and Output 10/15/24 10/15/24 10/16/24 15:00 23:00 07:00 Intake Total 240 ml 475 ml Output Total 1275 ml 500 ml Balance -1035 ml -25 ml medications Current Medications Medications Dose Ordered Sig/Luis Route Start Time Stop Time Status Last Admin Dose Admin Hydralazine HCl 10 mg Q6HP PRN IV 2/20/25 21:45 10/15/24 08:57 10 MG Metoprolol Tartrate 50 mg BID PO 10/11/24 22:00 10/16/24 09:52 50 MG Atorvastatin Calcium 40 mg HS PO 10/11/24 22:00 10/15/24 21:44 40 MG Sodium Chloride 1,000 ml @ 60 mls/hr [id number] IV 10/11/24 21:45 10/16/24 03:12 60 MLS/HR Acetaminophen/ Hydrocodone Bitart 1 tab Q4HP PRN PO 10/11/24 21:45 Ondansetron HCl 4 mg Q4HP PRN IV 10/11/24 21:45 Docusate Sodium 100 mg BIDPRN PRN PO 10/11/24 21:45 10/14/24 09:04 100 MG Acetaminophen 650 mg Q6HP PRN PO 10/11/24 21:45 Diagnostic Test (Pha) 1 strip IQ4HR 10/12/24 00:00 10/16/24 16:11 1 STRIP Insulin Human Regular IQ4HR SC 10/12/24 00:00 10/16/24 16:19 2 UNITS Dextrose 50 ml UD PRN IV 10/11/24 21:45 Nitroglycerin 0.4 mg Q5MINP PRN SL 10/11/24 22:00 Morphine Sulfate 2 mg Q30M PRN IV 10/11/24 22:00 Lorazepam 1 mg ONCE PRN IV 10/11/24 23:00 Insulin Glargine 25 units QAM SC 10/12/24 14:30 10/16/24 06:35 25 UNITS Clopidogrel Bisulfate 75 mg DAILY PO 10/12/24 22:00 11/01/24 23:00 10/16/24 09:54 75 MG Aspirin 81 mg DAILY PO 10/14/24 10:00 10/16/24 09:51 81 MG Examination General Appearance: Cooperative. Well developed. Well nourished. NAD Head Exam: Normal inspection. Some facial asymmetry noted, improved from prior exam Neck Exam: Normal inspection. Non-tender. Normal alignment Pulmonary/Respiratory: Chest non-tender. Clear bilateral breath sounds, no crackles, no wheezing. Cardiovascular/Chest: Regular rate and rhythm. No murmurs. No JVD. Peripheral Pulses: 2+ Radial (R). 2+ Radial (L). 2+ Pedal (R). 2+ Pedal (L) Abdominal Exam: Normal bowel sounds. Soft. normal abdomen, no visible veins, Nontender. No hepatospenomegaly. No masses Ankle Exam: Negative ankle edema Lower extremities: Negative lower extremity edema Neuro/Mental Status: A&O x4. Coherent. Thoughts/Psych: Normal thought pattern. Appropriate mood and affect. Good judgement and insight Skin Exam: Normal inspection. Normal color. Warm. Dry Neurologic: 1+ strength in the right upper extremity, 2+ strength in the right lower extremity. A drift noted in the right lower extremity, improved from prior exam. Dysdiadochokinesia on the right, improved from prior exam. laboratory and microbiology Laboratory Tests 10/16/24 05:33 Test 10/16/24 05:33 Range/Units Serum Glucose 122 H 74-106 mg/dL Problem List/Assessment/Plan Problem List/Assessment/Plan Acute to subacute ischemic stroke Acute stroke syndrome with multiple strokes - head CT: 4 mm hypodense focus within the left lateral thalamus with a 5 mm hyperdense focus within the left basal ganglia which may represent lacunar infarcts of unknown chronicity versus prominent perivascular spaces. -CT angiography head and neck: Short-segment high-grade stenosis of the P2 segment of the left SUPERVISOR ELECTRIC. This is age indeterminate. No encephalomalacia or CT signs of acute ischemia in the left cerebral lobe. Further evaluation with MRI could be completed if clinically warranted. The anterior circulation is patent. The basilar artery and right SUPERVISOR ELECTRIC are patent. No large vessel occlusion or high- grade stenosis in the neck - MRI brain: Acute or subacute infarct in the left side of the nano. Findings consistent with chronic small-vessel ischemic disease and chronic lacunar infarcts in the left basal ganglia and left thalamus. - echocardiogram: EF 60%. Moderate LVH. Normal RV function. No severe valve abnormalities noted. Aortic sclerosis - neurology on board - cardiology on board for ROMARIO: no large PFO or clots - patient is scheduled to undergo ROMARIO today - aspirin 162 mg p.o. daily - atorvastatin 40 mg p.o. - PT evaluation - started clopidogrel 75 mg p.o. daily - awaiting placement in acute rehab facility, progressing with PT daily in the interim Hypertensive urgency Hypertension - hydralazine 10 mg IV q.6 as needed for SBP greater than 150 - metoprolol tartrate 50 mg b.i.d. Type 2 diabetes, uncontrolled Hb A1c 10.8 - insulin Lantus 25 units - mild sliding scale insulin Goals of care: Full code, discussed for >16 minutes on 10/12/2024 Plan discussed with patient Plan discussed with Dr. Penny Plan discussed with: Patient, Other (RN) Dietary Evaluation Review Comments: 1) Advance to 60g [facility] cardiac diet when medically feasible, pending LOGGING TRACTOR OPERATOR [employer]AMP approval 2) Refer to outpatient RD/CDCES for diabetes education and weight management 3) Continue to monitor PO intake, labs, and skin integrity Expected Outcomes/Goals: 1) appetite and labs to improve 2) diet to advance 3) f/u in 5 days Date of Service: Oct 16, 2024 Billing Provider: KATLYN PENNY MD Common Visit Codes: [id number] INP/OBS CARE(HIGH) APRIL TILLMAN RESIDENT Oct 16, 2024 16:50 KATLYN PENNY MD Oct 22, 2024 12:37
--- NOTE | 2024-10-16 20:41 | DVHPN2 ---
Progress Note - Dictate Date Seen: Oct 16, 2024 Medical Necessity Reason Pt with a Central, PICC or Fol: No Subjective Mr. Meek is a 69 years old right handed gentleman with a history of hypertension, diabetes, obesity, the patient was brought to the [facility] on 10/13/2024 with a chief complaint of right-sided weakness, I have seen and examined the patient, I have discussed with his nurse, he was doing fine, alert and oriented x3, no new complaints UDS, 10/12/2024: Negative CBC, 10/11/2024: Unremarkable CMP, 10/11/2024: Unremarkable HGB A1c, 10/11/2024: 10.8 TG/HDL/LDL/HDL, 10/11/2024: 145/201/149/39 Echocardiogram, 10/12/2024: lvef 60% by visual estimate moderate LVH normal rv function no severe valve abnormalites noted aortic sclerosis ROMARIO, 10/15/2024: Left Ventricle: Normal LV size and function, LVEF estimated at 60% moderate concentric LVH noted. Right Ventricle: NOrmal RV size and function Left atrium: enlarged, Right atrium: mild enlarged Left atrial appendage: no thrombus noted Aortic valve: trileaflet valve, no severe or AI Mitral Valve: structurally normal, mild mitral regurg, no MS Tricuspid Valve: mild tricuspid regurgitaiton, no TS Pulmonic Valve: strucutrally normal, no severe PIor PS Interatrial septum: negative color flow for R to L shunt, bubble study done doesnt show any severe R to L shunting Ascending aorta: minimal plaquing CT head, 10/11/2024: 4 mm hypodense focus within the left lateral thalamus with 5 mm hypodense focus within the left basal ganglia which may represent lacunar infarcts of unknown chronicity versus prominent perivascular spaces. MRI would be helpful for further evaluation (I saw hypodense in left nano) CTA head, neck, 10/11/2024: 1. Short-segment high-grade stenosis of the P2 segment of the left [employer]. This is age indeterminate. No encephalomalacia or CT signs of acute ischemia in the left cerebral lobe. Further evaluation with MRI could be completed if clinically warranted. 2. The anterior circulation is patent. The basilar artery and right [employer] are patent. 3. No large vessel occlusion or high-grade stenosis in the neck MRI head, 10/12/2024: 1. Acute or subacute infarct in the left side of the nano. 2. Findings consistent with chronic small-vessel ischemic disease and chronic lacunar infarcts in the left basal ganglia and left thalamus 3. Additional findings as described above (Chronic lacunar infarcts in the left basal ganglia left thalamus) vital signs Vital Sign Date Time Temp Pulse Resp B/P (MAP) Pulse Ox O2 Delivery O2 Flow Rate FiO2 10/16/24 17:09 97.9 62 18 153/78 (103) 96 97.9 10/16/24 08:00 Room Air* 0 21 Total Intake and Output 10/15/24 10/15/24 10/16/24 15:00 23:00 07:00 Intake Total 240 ml 475 ml Output Total 1275 ml 500 ml Balance -1035 ml -25 ml medications Current Medications Medications Dose Ordered Sig/Luis Route Start Time Stop Time Status Last Admin Dose Admin Hydralazine HCl 10 mg Q6HP PRN IV 10/11/24 21:45 10/15/24 08:57 10 MG Metoprolol Tartrate 50 mg BID PO 10/11/24 22:00 10/16/24 09:52 50 MG Atorvastatin Calcium 40 mg HS PO 10/11/24 22:00 10/15/24 21:44 40 MG Sodium Chloride 1,000 ml @ 60 mls/hr [id number] IV 10/11/24 21:45 10/16/24 03:12 60 MLS/HR Acetaminophen/ Hydrocodone Bitart 1 tab Q4HP PRN PO 10/11/24 21:45 Ondansetron HCl 4 mg Q4HP PRN IV 10/11/24 21:45 Docusate Sodium 100 mg BIDPRN PRN PO 10/11/24 21:45 10/14/24 09:04 100 MG Acetaminophen 650 mg Q6HP PRN PO 10/11/24 21:45 Diagnostic Test (Pha) 1 strip IQ4HR 10/12/24 00:00 10/16/24 16:11 1 STRIP Insulin Human Regular IQ4HR SC 10/12/24 00:00 10/16/24 16:19 2 UNITS Dextrose 50 ml UD PRN IV 10/11/24 21:45 Nitroglycerin 0.4 mg Q5MINP PRN SL 10/11/24 22:00 Morphine Sulfate 2 mg Q30M PRN IV 10/11/24 22:00 Lorazepam 1 mg ONCE PRN IV 10/11/24 23:00 Insulin Glargine 25 units QAM SC 10/12/24 14:30 10/16/24 06:35 25 UNITS Clopidogrel Bisulfate 75 mg DAILY PO 10/12/24 22:00 11/01/24 23:00 10/16/24 09:54 75 MG Aspirin 81 mg DAILY PO 10/14/24 10:00 10/16/24 09:51 81 MG objective General: the patient is well developed and nourished. No acute distress. MENTAL STATUS: Awake and alert. Oriented to person, place, time and general circumstances. Able to give personal history. SPEECH, LANGUAGE, HIGHER CORTICAL FUNCTION: no aphasia or dysathria. CRANIAL NERVES: Intact visual barrett to confrontation. The optic discs were sharp. Pupils are equal, round and reactive. EOMs full and conjugate. No nystagmus. Facial sensation intact in all three divisions bilaterally. Mandibular strength intact. Mild right facial weakness of upper motor neuron pattern SENSATION: Sensation to touch and pinprick is normal. MOTOR: Normal tone in the upper and lower extremity. Normal muscle bulk. No fasciculations. No abnormal movements or posturing. Muscle strength of the major groups in the right extremities: Arm: 2/5, Le-3/5. REFLEXES: Deep tendon reflexes are symmetrical. No pathological reflexes. CEREBELLAR/COORDINATION: Finger to nose is normal in the left arm GAIT/STATION: deferred. laboratory and microbiology Laboratory Tests 10/16/24 05:33 Test 10/16/24 05:33 Range/Units Serum Glucose 122 H 74-106 mg/dL Problem List Acute stroke syndrome Multiple strokes in CT brain scan Stroke risk fact: Hypertension, diabetes, Obesity Assessment/Plan Monitoring Supportive treatment Telemetry Lipitor 40 mg daily Aspirin 162 mg daily (home medication) Plavix 75 mg q.d. for 21 days He needs long-term category monitoring for evidence of arrhythmia/atrial fibrillation Up to chair Physical therapy More recommendation per clinical course This medical document was created using an electronic medical record system with [employer] dictation system. Although this document has been carefully reviewed, there may still be some phonetic and typographical errors. These areas are purely typographical due to imperfections of the software programs, and do not reflect any compromise in the patient's medical care. Prognosis poor Dietary Evaluation Review Comments: 1) Advance to 60g [facility] cardiac diet when medically feasible, pending [employer] approval 2) Refer to outpatient RD/CDCES for diabetes education and weight management 3) Continue to monitor PO intake, labs, and skin integrity Expected Outcomes/Goals: 1) appetite and labs to improve 2) diet to advance 3) f/u in 5 days Plan discussed with: Patient, Other RHETT MACKENZIE MD Oct 16, 2024 20:41
[2024-10-17] VITALS (7 sets, daily range): BP systolic 128–155; BP diastolic 61–86; PULSE 56–65; RESP 16–20; TEMP 97.7–98.1; O2SAT 94–97
[2024-10-17] MEDS ORDERED: DEXTROSE (50%) 50ML SYRG IV PRN (11:15)
[2024-10-17] MEDS: ACCU-CHEK COMFORT CURVE STRIP VI SCH (11:30)
[2024-10-17] MEDS: InsuLIN REG 1unit/0.01ml Soln (100units/ml) SC SCH (11:30)
--- NOTE | 2024-10-17 18:59 | DVHPNRES ---
Progress Note Date Seen: Oct 17, 2024 Resident Creating Document: APRIL TILLMAN RESIDENT Medical Necessity Reason Pt with a Central, PICC or Fol: No Subjective Review of Systems Patient is a 69-year-old male with past medical history of diabetes, hypertension, who came in after sustaining a fall. According to the patient on 10/10/2024, when he was in the parking lot of his workplace he felt dizzy and right-sided weakness along with some loss of balance which led to a fall. Per patient he went home after that and continued to feel weakness on his right side and felt unstable on his feet which is what prompted this visit to the hospital. In the hospital, patient was noted to have a blood pressure of to [address] showed a 4 mm hypodense focus within the left lateral thalamus with 5 mm hypodense focus within the left basal ganglia which may represent lacunar infarcts of unknown chronicity versus prominent perivascular space. Per patient, he was diagnosed with diabetes and hypertension, however, does not take any medications at home except for aspirin 81 mg p.o. daily Past surgical history: Denies Home medications: Aspirin, NSAID as needed [id number] Past Hospitalization: In 2019 for COVID pneumonia Social & Personal history: Patient lives with family. Denies smoking, denies using alcohol, denies using drugs. Allergies: Denies Patient seen and examined at bedside. Patient is and oriented to time, place person and responding to all questions. Right upper extremity still with decreased strength, right lower extremity improving strength. Patient cleared swallow evaluation and was subsequently started on a mechanical soft diet. Scheduled to undergo ROMARIO yesterday, no clots of PFO noted. Per physical therapy recommendations patient will need acute rehab facility/[facility]. Patient is progressing with PT daily, improving RLE, however, RUE strength still remains 1+ Objective vital signs Vital Sign Date Time Temp Pulse Resp B/P (MAP) Pulse Ox O2 Delivery O2 Flow Rate FiO2 10/17/24 17:00 97.7 56 18 147/85 (105) 94 97.7 10/17/24 08:00 Room Air* 0 21 Total Intake and Output 10/16/24 10/16/24 10/17/24 15:00 23:00 07:00 Intake Total 500 ml 500 ml Output Total 500 ml 850 ml Balance 0 ml -350 ml medications Current Medications Medications Dose Ordered Sig/Luis Route Start Time Stop Time Status Last Admin Dose Admin Hydralazine HCl 10 mg Q6HP PRN IV 10/11/24 21:45 10/15/24 08:57 10 MG Metoprolol Tartrate 50 mg BID PO 10/11/24 22:00 10/17/24 09:48 50 MG Atorvastatin Calcium 40 mg HS PO 10/11/24 22:00 10/16/24 21:28 40 MG Acetaminophen/ Hydrocodone Bitart 1 tab Q4HP PRN PO 10/11/24 21:45 Ondansetron HCl 4 mg Q4HP PRN IV 10/11/24 21:45 Docusate Sodium 100 mg BIDPRN PRN PO 10/11/24 21:45 10/14/24 09:04 100 MG Acetaminophen 650 mg Q6HP PRN PO 10/11/24 21:45 Nitroglycerin 0.4 mg Q5MINP PRN SL 10/11/24 22:00 Morphine Sulfate 2 mg Q30M PRN IV 10/11/24 22:00 Lorazepam 1 mg ONCE PRN IV 10/11/24 23:00 Insulin Glargine 25 units QAM SC 10/12/24 14:30 10/17/24 06:32 25 UNITS Clopidogrel Bisulfate 75 mg DAILY PO 10/12/24 22:00 11/01/24 23:00 10/17/24 09:40 75 MG Aspirin 81 mg DAILY PO 10/14/24 10:00 10/17/24 09:40 81 MG Diagnostic Test (Pha) 1 strip ACHS 10/17/24 11:30 10/17/24 17:00 1 STRIP Insulin Human Regular ACHS SC 10/17/24 11:30 10/17/24 17:00 2 UNITS Dextrose 50 ml UD PRN IV 10/17/24 11:15 Examination General Appearance: Cooperative. Well developed. Well nourished. NAD Head Exam: Normal inspection. Some facial asymmetry noted, improved from prior exam Neck Exam: Normal inspection. Non-tender. Normal alignment Pulmonary/Respiratory: Chest non-tender. Clear bilateral breath sounds, no crackles, no wheezing. Cardiovascular/Chest: Regular rate and rhythm. No murmurs. No JVD. Peripheral Pulses: 2+ Radial (R). 2+ Radial (L). 2+ Pedal (R). 2+ Pedal (L) Abdominal Exam: Normal bowel sounds. Soft. normal abdomen, no visible veins, Nontender. No hepatospenomegaly. No masses Ankle Exam: Negative ankle edema Lower extremities: Negative lower extremity edema Neuro/Mental Status: A&O x4. Coherent. Thoughts/Psych: Normal thought pattern. Appropriate mood and affect. Good judgement and insight Skin Exam: Normal inspection. Normal color. Warm. Dry Neurologic: 1+ strength in the right upper extremity, 2+ strength in the right lower extremity. A drift noted in the right lower extremity, improved from prior exam. Dysdiadochokinesia on the right, improved from prior exam. laboratory and microbiology Laboratory Tests 10/16/24 05:33 Test 10/16/24 05:33 Range/Units Serum Glucose 122 H 74-106 mg/dL Problem List/Assessment/Plan Problem List/Assessment/Plan Acute to subacute ischemic stroke Acute stroke syndrome with multiple strokes - head CT: 4 mm hypodense focus within the left lateral thalamus with a 5 mm hyperdense focus within the left basal ganglia which may represent lacunar infarcts of unknown chronicity versus prominent perivascular spaces. -CT angiography head and neck: Short-segment high-grade stenosis of the P2 segment of the left [employer]. This is age indeterminate. No encephalomalacia or CT signs of acute ischemia in the left cerebral lobe. Further evaluation with MRI could be completed if clinically warranted. The anterior circulation is patent. The basilar artery and right [employer] are patent. No large vessel occlusion or high- grade stenosis in the neck - MRI brain: Acute or subacute infarct in the left side of the nano. Findings consistent with chronic small-vessel ischemic disease and chronic lacunar infarcts in the left basal ganglia and left thalamus. - echocardiogram: EF 60%. Moderate LVH. Normal RV function. No severe valve abnormalities noted. Aortic sclerosis - neurology on board - cardiology on board for ROMARIO: no large PFO or clots - patient is scheduled to undergo ROMARIO today - aspirin 162 mg p.o. daily - atorvastatin 40 mg p.o. - PT evaluation - started clopidogrel 75 mg p.o. daily - telemonitor showed a brief episode of afib around 5am on 10/17/24 - will likely need event monitor in the outpatient - awaiting placement in acute rehab facility Hypertensive urgency Hypertension - hydralazine 10 mg IV q.6 as needed for SBP greater than 150 - metoprolol tartrate 50 mg b.i.d. Type 2 diabetes, uncontrolled Hb A1c 10.8 - insulin Lantus 25 units - mild sliding scale insulin Goals of care: Full code, discussed for >16 minutes on 10/12/2024 Plan discussed with patient Plan discussed with Dr. Penny Plan discussed with: Patient, Other (RN) My Orders My Orders Orders - APRIL TILLMAN Procedure Category Date Status Time Transfer Orders XFER 10/17/24 Transmitted 07:49 Discontinue Tele LAUREN 10/17/24 In Process 07:49 Glucose Blood PHA 10/17/24 In Process (Accu-Chek Comfort 11:30 Insulin R (Human) PHA 10/17/24 In Process (Insulin R) 11:30 Dextrose 50% Syringe PHA 10/17/24 In Process 11:15 Transfer Orders XFER 10/17/24 Transmitted 14:37 Dietary Evaluation Review Comments: 1) Advance to 60g [facility] cardiac diet when medically feasible, pending [employer] approval 2) Refer to outpatient RD/[facility] for diabetes education and weight management 3) Continue to monitor PO intake, labs, and skin integrity Expected Outcomes/Goals: 1) appetite and labs to improve 2) diet to advance 3) f/u in 5 days Date of Service: Nov 14, 2024 Billing Provider: KATLYN PENNY MD Common Visit Codes: [id number] INP/OBS CARE(MOD) APRIL TILLMAN Oct 17, 2024 18:59 KATLYN PENNY MD Oct 22, 2024 12:37
[2024-10-18] VITALS (8 sets, daily range): BP systolic 127–149; BP diastolic 60–92; PULSE 58–74; RESP 18–20; TEMP 97.7–98.8; O2SAT 92–97
[2024-10-18] MEDS ORDERED: ATOR20TA50 PO (10:10)
[2024-10-18] MEDS ORDERED: CLOP75TA70 PO (10:10)
[2024-10-18] MEDS ORDERED: ASPI-325 PO (10:10)
--- NOTE | 2024-10-18 10:15 | DVHDSRES ---
Discharge Summary Date of Admission Resident Creating Document: APRIL TILLMAN RESIDENT Oct 11, 2024 at 21:54 Date of Discharge: Oct 18, 2024 Admitting Diagnosis Right-sided weakness Labs/Diagnostic Data: Laboratory Results Test 10/18/24 05:44 10/16/24 05:33 10/15/24 09:00 10/15/24 05:49 POC Glucose 136 mg/dl (70-106) White Blood Count 9.2 10^3/uL (4.4-10.8) Red Blood Count 5.17 10^6/uL (4.5-5.90) Hemoglobin 14.9 g/dL (13.5-17.5) Hematocrit 44.4 % (41.0-53.0) Mean Corpuscular Volume 85.8 fL (80.0-100.0) Mean Corpuscular Hemoglobin 28.9 pg (28.0-32.0) Mean Corpuscular Hemoglobin Concent 33.6 g/dL (32.0-36.0) Red Cell Distribution Width 13.9 % (11.8-14.3) Platelet Count 197 10^3/uL (140-450) Mean Platelet Volume 8.9 fL (6.9-10.8) Neutrophils (%) (Auto) 63.9 % (37.0-80.0) Lymphocytes (%) (Auto) 24.1 % (10.0-50.0) Monocytes (%) (Auto) 8.4 % (0.0-12.0) Eosinophils (%) (Auto) 3.2 % (0.0-7.0) Basophils (%) (Auto) 0.4 % (0.0-2.0) Neutrophils # (Auto) 5.9 10 ^3/uL (1.6-8.6) Lymphocytes # (Auto) 2.2 10 ^3/uL (0.4-5.4) Monocytes # (Auto) 0.8 10 ^3/uL (0-1.3) Eosinophils # (Auto) 0.3 10 ^3/uL (0-0.8) Basophils # (Auto) 0 10 ^3/uL (0-0.2) Nucleated Red Blood Cells 0.0 % Sodium Level 141 mmol/L (136-145) Potassium Level 3.5 mmol/L (3.5-5.1) Chloride Level 108 mmol/L (98-107) Carbon Dioxide Level 23 mmol/L (20-31) Anion Gap 10 (5-15) Blood Urea Nitrogen 17 mg/dL (9-23) Creatinine 1.01 mg/dL (0.700-1.30) Glomerular Filtration Rate Calc 80 mL/min (>90) BUN/Creatinine Ratio 16.8 (10.0-20.0) Serum Glucose 122 mg/dL (74-106) Calcium Level 9.5 mg/dL (8.7-10.4) Urine Color Yellow (Yellow) Urine Clarity Clear (Clear) Urine pH 6.5 (5.0-9.0) Urine Specific [place] 1.025 (1.001-1.035) Urine Protein Negative (Negative) Urine Ketones Negative (Negative) Urine Blood Negative /uL (Negative) Urine Nitrite Negative (Negative) Urine Bilirubin Negative (Negative) Urine Urobilinogen 2 mg/dL (Negative) Urine Leukocyte Esterase Negative /uL (Negative) Urine RBC <1 /hpf (0 - 3) Urine Microscopic WBC /HPF (0-3) Urine Squamous Epithelial Cells None seen /hpf (<5) Urine Bacteria Few /hpf (None Seen) Urine Mucus Few (None Seen) Urine Sperm Present /hpf (None Seen) Urine Glucose 3+ mg/dL (Normal) Prothrombin Time 11.0 sec (9.3-11.8) Prothrombin Time INR 1.04 (0.9-1.15) Activated Partial Thromboplast Time 29.4 SEC (24.5-34.5) Phosphorus Level 3.8 mg/dL (2.4-5.1) Magnesium Level 2.0 mg/dL (1.6-2.6) Test 10/14/24 09:13 10/12/24 08:00 10/12/24 04:52 10/11/24 18:41 Thyroid Stimulating Hormone (TSH) 1.72 uIU/mL (0.55-4.78) Urine Opiates Screen Neg (NEGATIVE) Urine Fentanyl Screen Neg (NEGATIVE) Urine Barbiturates Screen Neg (NEGATIVE) Urine Phencyclidine Screen Neg (NEGATIVE) Urine Amphetamines Screen Neg (NEGATIVE) Urine Benzodiazepines Screen Neg (NEGATIVE) Urine Cocaine Screen Neg (NEGATIVE) Urine Cannabinoids Screen Neg (NEGATIVE) Total Bilirubin 1.0 mg/dL (0.2-1.0) Aspartate Amino Transferase (AST) 17 U/L (13-40) Alanine Aminotransferase (ALT) 19 U/L (7-40) Alkaline Phosphatase 79 U/L (46-116) Total Protein 7.0 g/dL (5.7-8.2) Albumin 4.4 g/dL (3.2-4.8) Hemoglobin A1c 10.8 % A1C (<5.7) Troponin I High Sensitivity 30 ng/L (</=54) B-Type Natriuretic Peptide 15.61 pg/mL (0-100) Triglycerides Level 145 mg/dL (< 150) Cholesterol Level 201 mg/dL (< 200) LDL Cholesterol 149 mg/dL (< 100) HDL Cholesterol 39 mg/dL (40-59) Other Laboratory Tests 10/16/24 05:33 Brief Hx & Hospital Course: Patient is a 69-year-old male with past medical history of diabetes, hypertension, who came in after sustaining a fall. According to the patient on 10/10/2024, when he was in the parking lot of his workplace he felt dizzy and right-sided weakness along with some loss of balance which led to a fall. Per patient he went home after that and continued to feel weakness on his right side and felt unstable on his feet which is what prompted this visit to the hospital. In the hospital, patient was noted to have a blood pressure of to 204/103. Head CT showed a 4 mm hypodense focus within the left lateral thalamus with 5 mm hypodense focus within the left basal ganglia which may represent lacunar infarcts of unknown chronicity versus prominent perivascular space. Per patient, he was diagnosed with diabetes and hypertension, however, does not take any medications at home except for aspirin 81 mg p.o. daily Hospital course: CT angiography head and neck showed Short-segment high-grade stenosis of the P2 segment of the left LEGAL JOB TITLES. This is age indeterminate. No encephalomalacia or CT signs of acute ischemia in the left cerebral lobe. Further evaluation with MRI could be completed if clinically warranted. The anterior circulation is patent. The basilar artery and right LEGAL JOB TITLES are patent. No large vessel occlusion or high- grade stenosis in the neck. MRI brain showed acute or subacute infarct in the left side of the nano. Findings consistent with chronic small-vessel ischemic using chronic lacunar infarcts in the left basal ganglia and left thalamus. Echocardiogram showed ejection fraction 60%, moderate LVH, normal RV function. No severe valve abnormalities noted. Aortic sclerosis. Transesophageal echocardiogram showed no large PF for clots. Neurology and Cardiology were also on board. Initially patient was given aspirin 162 mg and then transitioned to aspirin 81 mg p.o. daily, atorvastatin 40 mg p.o. daily and clopidogrel 75 mg p.o. daily. PT evaluation was requested for the patient's which patient continued and progressed with daily. Telemonitor at 1 point she had a brief episode of AFib on 10/17/2024, however, discernible P waves were noted and it was likely an incorrect reading by the monitor. With that said, patient will need outpatient cardiology follow up for possible event monitor for the evaluation of atrial fibrillation. For hypertension patient was managed with hydralazine p.r.n. and metoprolol tartrate 50 mg b.i.d.. Diabetes was managed with insulin Lantus 25 units and a mild sliding scale insulin. On the day of discharge, patient appeared well and had stable vital signs, patient had multiple sessions with PT and improved function in the right lower extremity, however, continues to have 1+ strength in the right upper extremity. Details of hospitalization along with needs for outpatient follow up were explained to the patient in detail with at bedside, patient and demonstrated understanding. His hospital course was uncomplicated. General Appearance: Cooperative. Well developed. Well nourished. NAD Head Exam: Normal inspection. Some facial asymmetry noted, improved from prior exam Neck Exam: Normal inspection. Non-tender. Normal alignment Pulmonary/Respiratory: Chest non-tender. Clear bilateral breath sounds, no crackles, no wheezing. Cardiovascular/Chest: Regular rate and rhythm. No murmurs. No JVD. Peripheral Pulses: 2+ Radial (R). 2+ Radial (L). 2+ Pedal (R). 2+ Pedal (L) Abdominal Exam: Normal bowel sounds. Soft. normal abdomen, no visible veins, Nontender. No hepatospenomegaly. No masses Ankle Exam: Negative ankle edema Lower extremities: Negative lower extremity edema Neuro/Mental Status: A&O x4. Coherent. Thoughts/Psych: Normal thought pattern. Appropriate mood and affect. Good judgement and insight Skin Exam: Normal inspection. Normal color. Warm. Dry Neurologic: 1+ strength in the right upper extremity, 2+ strength in the right lower extremity. A drift noted in the right lower extremity, improved from prior exam. Dysdiadochokinesia on the right, improved from prior exam. Consults/Reason for consult Neurology: Acute -subacute stroke syndrome Cardiology: ROMARIO Operations or Procedures Procedure: CT HEAD WITHOUT CONTRAST Study Date and Requested Time: 10/11/2024 05:46 PM History: R/O STROKE Comparison: None Dose: CTDI: 48.25 mGy DLP: 957.5 mGycm Technique: Multiplanar images obtained through the brain without intravenous contrast. Findings: Mild diffuse brain atrophy. Mild chronic small vessel ischemic changes. 4 mm hypodense focus of the left lateral thalamus with 5 mm hypodense focus within the left basal ganglia. No hemorrhages, masses, mass effect, midline shift, or herniation. No intra- axial or extra-axial fluid collections. No evidence of hydrocephalus. The basal cisterns are patent. The pituitary gland, sella and parasellar regions are unremarkable. The cerebellar tonsils are in normal position. The cerebellum is unremarkable. The orbits and globes are unremarkable. Mild polypoid mucoperiosteal thickening of the maxillary sinuses. Otherwise, the paranasal sinuses and mastoids are clear. There are no worrisome calvarial lesions. Impression: 4 mm hypodense focus within the left lateral thalamus with 5 mm hypodense focus within the left basal ganglia which may represent lacunar infarcts of unknown chronicity versus prominent perivascular spaces. MRI would be helpful for further evaluation. EXAM: CT ANGIO HEAD/NECK HISTORY: Right-sided weakness COMPARISON: None TECHNIQUE: CTA imaging of the neck and head was performed following the uneventful administration of intravenous contrast. Sagittal and coronal reformatted images were obtained from the source data. 3D/MIP post-processing of the source data set was performed and reviewed by the radiologist. Radiation Dose Information: CT Dose: CTDI volume is 31 mGy. Dose-length product is 947 mGy*cm All CT scans at this medical facility are performed using dose modulation techniques as appropriate to a performed exam including the following: Automated exposure control was utilized; adjustment of the MA and/or KV according to patient size; and use of iterative reconstruction technique. FINDINGS: CTA Neck: Aortic Arch: Conventional branching. Right brachiocephalic artery: Unremarkable. Right carotid artery: Unremarkable. Right subclavian artery: Unremarkable. Right vertebral artery: Unremarkable. Left carotid artery: Unremarkable. Left subclavian artery: Unremarkable. Left vertebral artery: Unremarkable. Other: Ground-glass opacities are seen in the bilateral upper lobes. CTA Head: [place]: Atherosclerotic calcification of the bilateral carotid siphons noted less than 50% stenosis. The bilateral ACAs and MCAs are patent. The bilateral intracranial vertebral arteries and basilar artery are patent. The right LEGAL JOB TITLES is patent. There is occlusion of the left LEGAL JOB TITLES beyond the P1 segment. Dural venous: Grossly unremarkable. Other: None. IMPRESSION: 1. Short-segment high-grade stenosis of the P2 segment of the left LEGAL JOB TITLES. This is age indeterminate. No encephalomalacia or CT signs of acute ischemia in the left cerebral lobe. Further evaluation with MRI could be completed if clinically warranted. 2. The anterior circulation is patent. The basilar artery and right LEGAL JOB TITLES are patent. 3. No large vessel occlusion or high-grade stenosis in the neck CLINICAL INDICATION: 69 years old, Male; cerebrovascular accident. COMPARISON: Noncontrast CT head dated 10/11/2024. TECHNIQUE: Multisequence multiplanar MRI images of the brain were obtained without contrast. FINDINGS: Focal area of restricted diffusion in the left side of the nano measuring up to 2.3 x 1.0 cm, suspected acute or subacute infarct. No mass or midline shift. Scattered areas of T2/FLAIR hyperintense signal in the periventricular and subcortical white matter are nonspecific, but most likely sequelae of chronic small vessel ischemic disease. Chronic lacunar infarcts in the left basal ganglia left thalamus. Ventricles and sulci are within normal limits. Basal cisterns are patent. Cerebellum, brainstem, and midline structures are within normal limits. Mild mucosal thickening of the paranasal sinuses. Orbits are grossly unremarkable. IMPRESSION: 1. Acute or subacute infarct in the left side of the nano. 2. Findings consistent with chronic small-vessel ischemic disease and chronic lacunar infarcts in the left basal ganglia and left thalamus 3. Additional findings as described above. APPROVED REPORT EXAM: Two-dimensional and M-mode echocardiogram with Doppler and color Doppler. Blood Pressure: 144/76 mmHg INDICATION evaluate cardiac function RISK FACTORS Obesity: Height: 5'8, Weight: 277 DIMENSIONS LVDd 4.7 (3.8-5.7cm) LA (2D) 3.3 (1.9-4.0cm) Aortic Root 3.0 (2.0- 3.7cm) LVDs 3.2 (2.5-4.0cm) LA (MM) (1.9-4.0cm) Aortic Cusp Exc 1.5 (1.5- 2.0cm) EF (%) 60.0 (55-70%) Rt. Atrium 2.9 (1.9-4.0cm) Asc. Aorta cm IVSd 1.2 (0.7-1.1cm) RV (D) 3.6 (1.8-2.4cm) PWd 1.2 (0.7-1.1cm) Mitral Valve Mitral Mitral Stenosis E wave 0.41m/s MV Mean GR. mmHg A wave 0.59m/s MV Peak GR. mmHg E/A ratio 0.7 2D MVA cm2 DECEL Time 222ms PRESS 1/2 Time ms Aortic Valve Aortic Valve Aortic Stenosis V1 0.90m/s AO Mean GR. 3mmHg V2 1.15m/s AO Peak GR. 5mmHg LVOT Diameter 1.9 (1.8-2.4cm) Doppler MELA 2.22cm2 Pulmonic Valve V2 0.92m/s Other Information Quality : Technically Limited Rhythm : Technically limited study due to patient position.body habitus. Conclusion lvef 60% by visual estimate moderate LVH normal rv function no severe valve abnormalites noted aortic sclerosis Date of Service: 10/15/24 Director Operations Broadcast: Corwin Pendleton MD PROCEDURES PERFORMED: trans esophageal echocardiogram, conscious sedation <15 mins, doppler assesment complete RMOARIO PREOPERATIVE DIAGNOSES:CVA POSTOP DIAGNOSIS: CVA DESCRIPTION OF PROCEDURE: The patient or appropriate family signed informed consent understanding the risks, benefits and alternatives of the procedure, they wished to proceed. The patient was brought to the cardiac clay processing labourer in n.p.o. state. the patient was given 15 ml of oral viscous lidocaine. the patient was placed in a left lateral decubitus position with bite block in mouth. NExt conscious sedation was administered per clay processing labourer protocol with _1_ mg of versed and _50_ mcg of fentanyl. Next a ROMARIO probe was advanced to the mid esophagus with ease and multiple planar images obtained. At the completion of the procedure , probe was removed and there were no immediate complications. FINDINGS: Left Ventricle: Normal LV size and function, LVEF estimated at 60% moderate concentric LVH noted. Right Ventricle: NOrmal RV size and function Left atrium: enlarged, Right atrium: mild enlarged Left atrial appendage: no thrombus noted Aortic valve: trileaflet valve, no severe or AI Mitral Valve: structurally normal, mild mitral regurg, no MS Tricuspid Valve: mild tricuspid regurgitaiton, no TS Pulmonic Valve: strucutrally normal, no severe PIor PS Interatrial septum: negative color flow for R to L shunt, bubble study done doesnt show any severe R to L shunting Ascending aorta: minimal plaquing Condition at Discharge: Fair Final Diagnosis/Problems List Acute to subacute ischemic stroke Acute stroke syndrome with multiple strokes Hypertensive urgency Hypertension Type 2 diabetes, uncontrolled Hb A1c 10.8 Discharge Disposition: Inpatient Rehab Facility Discharge Instruct/Medications Diet: Consistent carbohydrate, Cardiac 2g Na,low cholest Activity: No Restrictions, As Tolerated Follow Up/Referral: Please follow up with PCP in 1-2 weeks Please follow up with Cardiology in the outpatient clinic for possible event monitor placement Medications: Aspirin 81 mg p.o. daily Plavix 75 mg p.o. daily for 21 days only Atorvastatin 40 mg p.o. daily Discharge Statement: "Patient was advised to return to the ER or call 911 if any headaches, dizziness, shortness of breath, chest pain, abdominal pain, bleeding, fevers, or worsening of medical condition. Patient was counseled about treatment plan, medications, possible side effects, patientverbalized understanding. All questions were answered to the best of my ability. This discharge took greater then 30 minutes in planning, reviewing documentation, counseling the patient, and discussing with other team members." ASSESSMENT ASSESSMENT Assessment Acute to subacute ischemic stroke Acute stroke syndrome with multiple strokes Hypertensive urgency Hypertension Type 2 diabetes, uncontrolled Hb A1c 10.8 Date of Service: Nov 15, 2024 Billing Provider: KATLYN PARRA MD Common Visit Codes: [id number] INP/OBS CARE(MOD) APRIL TILLMAN Oct 18, 2024 10:15 KATLYN PARRA MD Oct 22, 2024 12:38
--- NOTE | 2024-10-18 22:56 | DVHPN2 ---
Progress Note - Dictate Date Seen: Oct 18, 2024 Medical Necessity Reason Pt with a Central, PICC or Fol: No Subjective Mr. Meek is a 69 years old right handed gentleman with a history of hypertension, diabetes, obesity, the patient was brought to the [facility] on 10/13/2024 with a chief complaint of right-sided weakness, I have seen and examined the patient, I have discussed with his nurse, he was doing fine, alert and oriented x3, no new complaints Possibly his hemiparesis is better UDS, 10/12/2024: Negative CBC, 10/11/2024: Unremarkable CMP, 10/11/2024: Unremarkable HGB A1c, 10/11/2024: 10.8 TG/HDL/LDL/HDL, 10/11/2024: 145/201/149/39 Echocardiogram, 10/12/2024: lvef 60% by visual estimate moderate LVH normal rv function no severe valve abnormalites noted aortic sclerosis ROMARIO, 10/15/2024: Left Ventricle: Normal LV size and function, LVEF estimated at 60% moderate concentric LVH noted. Right Ventricle: NOrmal RV size and function Left atrium: enlarged, Right atrium: mild enlarged Left atrial appendage: no thrombus noted Aortic valve: trileaflet valve, no severe or AI Mitral Valve: structurally normal, mild mitral regurg, no MS Tricuspid Valve: mild tricuspid regurgitaiton, no TS Pulmonic Valve: strucutrally normal, no severe PIor PS Interatrial septum: negative color flow for R to L shunt, bubble study done doesnt show any severe R to L shunting Ascending aorta: minimal plaquing CT head, 10/11/2024: 4 mm hypodense focus within the left lateral thalamus with 5 mm hypodense focus within the left basal ganglia which may represent lacunar infarcts of unknown chronicity versus prominent perivascular spaces. MRI would be helpful for further evaluation (I saw hypodense in left nano) CTA head, neck, 10/11/2024: 1. Short-segment high-grade stenosis of the P2 segment of the left CARD FILER. This is age indeterminate. No encephalomalacia or CT signs of acute ischemia in the left cerebral lobe. Further evaluation with MRI could be completed if clinically warranted. 2. The anterior circulation is patent. The basilar artery and right CARD FILER are patent. 3. No large vessel occlusion or high-grade stenosis in the neck MRI head, 10/12/2024: 1. Acute or subacute infarct in the left side of the nano. 2. Findings consistent with chronic small-vessel ischemic disease and chronic lacunar infarcts in the left basal ganglia and left thalamus 3. Additional findings as described above (Chronic lacunar infarcts in the left basal ganglia left thalamus) vital signs Vital Sign Date Time Temp Pulse Resp B/P (MAP) Pulse Ox O2 Delivery O2 Flow Rate FiO2 10/18/24 22:15 74 146/92 10/18/24 20:57 98.2 19 92 98.2 10/18/24 08:00 Room Air* 0 21 Total Intake and Output 10/17/24 10/17/24 10/18/24 15:00 23:00 07:00 Intake Total 800 ml 400 ml Output Total 500 ml 800 ml Balance 300 ml -400 ml medications Current Medications Medications Dose Ordered Sig/Luis Route Start Time Stop Time Status Last Admin Dose Admin Hydralazine HCl 10 mg Q6HP PRN IV 10/11/24 21:45 10/15/24 08:57 10 MG Metoprolol Tartrate 50 mg BID PO 10/11/24 22:00 10/18/24 22:15 50 MG Atorvastatin Calcium 40 mg HS PO 10/11/24 22:00 10/18/24 22:14 40 MG Acetaminophen/ Hydrocodone Bitart 1 tab Q4HP PRN PO 10/11/24 21:45 Ondansetron HCl 4 mg Q4HP PRN IV 10/11/24 21:45 Docusate Sodium 100 mg BIDPRN PRN PO 10/11/24 21:45 10/14/24 09:04 100 MG Acetaminophen 650 mg Q6HP PRN PO 10/11/24 21:45 Nitroglycerin 0.4 mg Q5MINP PRN SL 10/11/24 22:00 Morphine Sulfate 2 mg Q30M PRN IV 10/11/24 22:00 Lorazepam 1 mg ONCE PRN IV 10/11/24 23:00 Insulin Glargine 25 units QAM SC 10/12/24 14:30 10/18/24 06:03 25 UNITS Clopidogrel Bisulfate 75 mg DAILY PO 10/12/24 22:00 11/01/24 23:00 10/18/24 10:14 75 MG Aspirin 81 mg DAILY PO 10/14/24 10:00 10/18/24 10:14 81 MG Diagnostic Test (Pha) 1 strip ACHS 10/17/24 11:30 10/18/24 22:13 1 STRIP Insulin Human Regular ACHS SC 10/17/24 11:30 10/18/24 22:13 3 UNITS Dextrose 50 ml UD PRN IV 10/17/24 11:15 objective General: the patient is well developed and nourished. No acute distress. MENTAL STATUS: Awake and alert. Oriented to person, place, time and general circumstances. Able to give personal history. SPEECH, LANGUAGE, HIGHER CORTICAL FUNCTION: no aphasia or dysathria. CRANIAL NERVES: Intact visual barrett to confrontation. The optic discs were sharp. Pupils are equal, round and reactive. EOMs full and conjugate. No nystagmus. Facial sensation intact in all three divisions bilaterally. Mandibular strength intact. Mild right facial weakness of upper motor neuron pattern SENSATION: Sensation to touch and pinprick is normal. MOTOR: Normal tone in the upper and lower extremity. Normal muscle bulk. No fasciculations. No abnormal movements or posturing. Muscle strength of the major groups in the right extremities: Arm: 2/5, Le-3/5. REFLEXES: Deep tendon reflexes are symmetrical. No pathological reflexes. CEREBELLAR/COORDINATION: Finger to nose is normal in the left arm GAIT/STATION: deferred. laboratory and microbiology Laboratory Tests 10/16/24 05:33 Test 10/16/24 05:33 Range/Units Serum Glucose 122 H 74-106 mg/dL Problem List Acute stroke syndrome Multiple strokes in CT brain scan Stroke risk fact: Hypertension, diabetes, Obesity Assessment/Plan Monitoring Supportive treatment Telemetry Lipitor 40 mg daily Aspirin 162 mg daily (home medication) Plavix 75 mg q.d. for 21 days He needs long-term category monitoring for evidence of arrhythmia/atrial fibrillation Up to chair Physical therapy More recommendation per clinical course This medical document was created using an electronic medical record system with [employer] dictation system. Although this document has been carefully reviewed, there may still be some phonetic and typographical errors. These areas are purely typographical due to imperfections of the software programs, and do not reflect any compromise in the patient's medical care. Prognosis poor Dietary Evaluation Review Comments: 1) Advance to 60g [facility] cardiac diet when medically feasible, pending MARKETING OFFICER approval 2) Refer to outpatient RD/CDCES for diabetes education and weight management 3) Continue to monitor PO intake, labs, and skin integrity Expected Outcomes/Goals: 1) appetite and labs to improve 2) diet to advance 3) f/u in 5 days Plan discussed with: Patient, Other RHETT MACKENZIE MD Oct 18, 2024 22:56
[2024-10-19] VITALS (8 sets, daily range): BP systolic 126–151; BP diastolic 72–81; PULSE 58–78; RESP 17–19; TEMP 97.8–98.4; O2SAT 92–96
--- NOTE | 2024-10-19 17:59 | DVHPNRES ---
Progress Note Date Seen: Oct 19, 2024 Resident Creating Document: APRIL TILLMAN RESIDENT Medical Necessity Reason Pt with a Central, PICC or Fol: No Subjective Review of Systems Patient is a 69-year-old male with past medical history of diabetes, hypertension, who came in after sustaining a fall. According to the patient on 10/10/2024, when he was in the parking lot of his workplace he felt dizzy and right-sided weakness along with some loss of balance which led to a fall. Per patient he went home after that and continued to feel weakness on his right side and felt unstable on his feet which is what prompted this visit to the hospital. In the hospital, patient was noted to have a blood pressure of to [address] showed a 4 mm hypodense focus within the left lateral thalamus with 5 mm hypodense focus within the left basal ganglia which may represent lacunar infarcts of unknown chronicity versus prominent perivascular space. Per patient, he was diagnosed with diabetes and hypertension, however, does not take any medications at home except for aspirin 81 mg p.o. daily Past surgical history: Denies Home medications: Aspirin, NSAID as needed [id number] Past Hospitalization: In 2019 for COVID pneumonia Social & Personal history: Patient lives with family. Denies smoking, denies using alcohol, denies using drugs. Allergies: Denies Patient seen and examined at bedside. Patient is and oriented to time, place person and responding to all questions. Right upper extremity still with decreased strength, right lower extremity improving strength. Patient cleared swallow evaluation and was subsequently started on a mechanical soft diet. Scheduled to undergo ROMARIO yesterday, no clots of PFO noted. Per physical therapy recommendations patient will need acute rehab facility/[facility]. Patient is progressing with PT daily, improving RLE, however, RUE strength still remains 1+ Objective vital signs Vital Sign Date Time Temp Pulse Resp B/P (MAP) Pulse Ox O2 Delivery O2 Flow Rate FiO2 10/19/24 13:00 98.2 61 18 139/73 (95) 96 98.2 10/19/24 07:30 Room Air* 0 21 Total Intake and Output 10/18/24 10/18/24 10/19/24 15:00 23:00 07:00 Intake Total 600 ml 750 ml Output Total 300 ml 800 ml 700 ml Balance -300 ml -200 ml 50 ml medications Current Medications Medications Dose Ordered Sig/Luis Route Start Time Stop Time Status Last Admin Dose Admin Hydralazine HCl 10 mg Q6HP PRN IV 10/11/24 21:45 10/15/24 08:57 10 MG Metoprolol Tartrate 50 mg BID PO 10/11/24 22:00 10/19/24 09:45 50 MG Atorvastatin Calcium 40 mg HS PO 10/11/24 22:00 10/18/24 22:14 40 MG Acetaminophen/ Hydrocodone Bitart 1 tab Q4HP PRN PO 10/11/24 21:45 Ondansetron HCl 4 mg Q4HP PRN IV 10/11/24 21:45 Docusate Sodium 100 mg BIDPRN PRN PO 10/11/24 21:45 10/14/24 09:04 100 MG Acetaminophen 650 mg Q6HP PRN PO 10/11/24 21:45 Nitroglycerin 0.4 mg Q5MINP PRN SL 10/11/24 22:00 Morphine Sulfate 2 mg Q30M PRN IV 10/11/24 22:00 Lorazepam 1 mg ONCE PRN IV 10/11/24 23:00 Insulin Glargine 25 units QAM SC 10/12/24 14:30 10/19/24 06:10 25 UNITS Clopidogrel Bisulfate 75 mg DAILY PO 10/12/24 22:00 11/01/24 23:00 10/19/24 09:45 75 MG Aspirin 81 mg DAILY PO 10/14/24 10:00 10/19/24 09:45 81 MG Diagnostic Test (Pha) 1 strip ACHS 10/17/24 11:30 10/19/24 11:30 1 STRIP Insulin Human Regular ACHS SC 10/17/24 11:30 10/19/24 14:19 3 UNITS Dextrose 50 ml UD PRN IV 10/17/24 11:15 Examination General Appearance: Cooperative. Well developed. Well nourished. NAD Head Exam: Normal inspection. Some facial asymmetry noted, improved from prior exam Neck Exam: Normal inspection. Non-tender. Normal alignment Pulmonary/Respiratory: Chest non-tender. Clear bilateral breath sounds, no crackles, no wheezing. Cardiovascular/Chest: Regular rate and rhythm. No murmurs. No JVD. Peripheral Pulses: 2+ Radial (R). 2+ Radial (L). 2+ Pedal (R). 2+ Pedal (L) Abdominal Exam: Normal bowel sounds. Soft. normal abdomen, no visible veins, Nontender. No hepatospenomegaly. No masses Ankle Exam: Negative ankle edema Lower extremities: Negative lower extremity edema Neuro/Mental Status: A&O x4. Coherent. Thoughts/Psych: Normal thought pattern. Appropriate mood and affect. Good judgement and insight Skin Exam: Normal inspection. Normal color. Warm. Dry Neurologic: 1+ strength in the right upper extremity, 2+ strength in the right lower extremity. A drift noted in the right lower extremity, improved from prior exam. Dysdiadochokinesia on the right, improved from prior exam. laboratory and microbiology Laboratory Tests 10/16/24 05:33 Test 10/16/24 05:33 Range/Units Serum Glucose 122 H 74-106 mg/dL Labs and/or images reviewed: Labs reviewed by me, Image(s) reviewed by me Problem List/Assessment/Plan Problem List/Assessment/Plan Acute to subacute ischemic stroke Acute stroke syndrome with multiple strokes - head CT: 4 mm hypodense focus within the left lateral thalamus with a 5 mm hyperdense focus within the left basal ganglia which may represent lacunar infarcts of unknown chronicity versus prominent perivascular spaces. -CT angiography head and neck: Short-segment high-grade stenosis of the P2 segment of the left [employer]. This is age indeterminate. No encephalomalacia or CT signs of acute ischemia in the left cerebral lobe. Further evaluation with MRI could be completed if clinically warranted. The anterior circulation is patent. The basilar artery and right [employer] are patent. No large vessel occlusion or high- grade stenosis in the neck - MRI brain: Acute or subacute infarct in the left side of the nano. Findings consistent with chronic small-vessel ischemic disease and chronic lacunar infarcts in the left basal ganglia and left thalamus. - echocardiogram: EF 60%. Moderate LVH. Normal RV function. No severe valve abnormalities noted. Aortic sclerosis - neurology on board - cardiology on board for ROMARIO: no large PFO or clots - patient is scheduled to undergo ROMARIO today - aspirin 162 mg p.o. daily - atorvastatin 40 mg p.o. - PT evaluation - started clopidogrel 75 mg p.o. daily - telemonitor showed a brief episode of afib around 5am on 10/17/24 - will likely need event monitor in the outpatient - awaiting placement in acute rehab facility Hypertensive urgency Hypertension - hydralazine 10 mg IV q.6 as needed for SBP greater than 150 - metoprolol tartrate 50 mg b.i.d. Type 2 diabetes, uncontrolled Hb A1c 10.8 - insulin Lantus 25 units - mild sliding scale insulin Goals of care: Full code, discussed for >16 minutes on 10/12/2024 Plan discussed with patient Plan discussed with Dr. Penny Plan discussed with: Patient, Other (RN) Dietary Evaluation Review Comments: 1) Advance to 60g [facility] cardiac diet when medically feasible, pending ER NURSE approval 2) Refer to outpatient RD/[facility] for diabetes education and weight management 3) Continue to monitor PO intake, labs, and skin integrity Expected Outcomes/Goals: 1) appetite and labs to improve 2) diet to advance 3) f/u in 5 days Date of Service: Oct 19, 2024 Billing Provider: KATLYN PENNY MD Common Visit Codes: [id number] INP/OBS CARE(MOD) APRIL TILLMAN Oct 19, 2024 17:59 KATLYN PENNY MD Oct 22, 2024 12:38
[2024-10-20] VITALS (8 sets, daily range): BP systolic 110–137; BP diastolic 53–71; PULSE 55–77; RESP 17–18; TEMP 97.4–98.4; O2SAT 93–95
--- NOTE | 2024-10-20 06:24 | DVHPNRES ---
Progress Note Date Seen: Oct 20, 2024 Resident Creating Document: MARTHA BHAKTA RESIDENT Medical Necessity Reason Pt with a Central, PICC or Fol: No Subjective Review of Systems Mango Meek is a 69-year-old male patient who presents to ED after sustaining a fall. According to the patient on 10/10/2024, when he was in the parking lot of his workplace he felt dizzy and right-sided weakness along with some loss of balance which led to a fall. Per patient he went home after that and continued to feel weakness on his right side and felt unstable on his feet which is what prompted this visit to the hospital. In the hospital, patient was noted to have a blood pressure of to 204/103mmHg. Per patient, he was diagnosed with diabetes and hypertension, however, does not take any medications at home except for aspirin 81 mg p.o. daily. Denies any other associated symptoms Past medical history: Diabetes, hypertension, COVID pneumonia in 2019 Past surgical history: Denies Social & Personal history: Patient lives with family. Denies tobacco, alcohol and other drug abuse. Allergies: Denies Home medications: Aspirin, NSAID as needed [id number] Patient seen and examined at bedside. Currently has no new complaints, improving motility of right brachial-crural region. Awaiting authorization from insurance for transfer to acute rehab facility Objective vital signs Vital Sign Date Time Temp Pulse Resp B/P (MAP) Pulse Ox O2 Delivery O2 Flow Rate FiO2 10/20/24 05:00 97.4 59 18 121/70 (87) 93 97.4 10/19/24 20:00 Room Air* 0 21 Total Intake and Output 10/19/24 10/19/24 10/20/24 15:00 23:00 07:00 Intake Total 950 ml 400 ml Output Total 650 ml Balance 300 ml 400 ml medications Current Medications Medications Dose Ordered Sig/Luis Route Start Time Stop Time Status Last Admin Dose Admin Hydralazine HCl 10 mg Q6HP PRN IV 10/11/24 21:45 10/15/24 08:57 10 MG Metoprolol Tartrate 50 mg BID PO 10/11/24 22:00 10/19/24 21:58 50 MG Atorvastatin Calcium 40 mg HS PO 10/11/24 22:00 10/19/24 21:57 40 MG Acetaminophen/ Hydrocodone Bitart 1 tab Q4HP PRN PO 10/11/24 21:45 Ondansetron HCl 4 mg Q4HP PRN IV 10/11/24 21:45 Docusate Sodium 100 mg BIDPRN PRN PO 10/11/24 21:45 10/14/24 09:04 100 MG Acetaminophen 650 mg Q6HP PRN PO 10/11/24 21:45 Nitroglycerin 0.4 mg Q5MINP PRN SL 10/11/24 22:00 Morphine Sulfate 2 mg Q30M PRN IV 10/11/24 22:00 Lorazepam 1 mg ONCE PRN IV 10/11/24 23:00 Insulin Glargine 25 units QAM SC 10/12/24 14:30 10/19/24 06:10 25 UNITS Clopidogrel Bisulfate 75 mg DAILY PO 10/12/24 22:00 11/01/24 23:00 10/19/24 09:45 75 MG Aspirin 81 mg DAILY PO 10/14/24 10:00 10/19/24 09:45 81 MG Diagnostic Test (Pha) 1 strip ACHS 10/17/24 11:30 10/19/24 21:58 1 STRIP Insulin Human Regular ACHS SC 10/17/24 11:30 10/19/24 22:01 3 UNITS Dextrose 50 ml UD PRN IV 10/17/24 11:15 Examination Patient lying in bed, in no acute distress General: Lucid, afebrile, mucosae are moist Cardiovascular: Normal S1 and S2. No murmurs, gallops or rubs Respiratory: Normal ventilation mechanics. Clear lung sounds on auscultation Abdomen: Soft, nontender, no organomegaly, normal bowel sounds MSK/skin: Mobilizes 4 limbs. Skin is dry and warm Neurological: Oriented in 3 spheres. Presents decreased muscle strength and tonicity in right brachial-crural region. No other motor no sensitive deficits. Pupils are isocoric and reactive laboratory and microbiology Laboratory Tests 10/16/24 05:33 Test 10/16/24 05:33 Range/Units Serum Glucose 122 H 74-106 mg/dL Problem List/Assessment/Plan Problem List/Assessment/Plan # Acute to subacute ischemic stroke in left nano. Multiple chronic strokes Head CT: 4 mm hypodense focus within the left lateral thalamus with a 5 mm hyperdense focus within the left basal ganglia which may represent lacunar infarcts of unknown chronicity versus prominent perivascular spaces. CT angiography head and neck: Short-segment high-grade stenosis of the P2 segment of the left NEEDLE LOOM WEAVER. This is age indeterminate. No encephalomalacia or CT signs of acute ischemia in the left cerebral lobe. Further evaluation with MRI could be completed if clinically warranted. The anterior circulation is patent. The basilar artery and right NEEDLE LOOM WEAVER are patent. No large vessel occlusion or high- grade stenosis in the neck MRI brain: Acute or subacute infarct in the left side of the nano. Findings consistent with chronic small-vessel ischemic disease and chronic lacunar infarcts in the left basal ganglia and left thalamus. Neurology on board: [facility] medical treatment (on DAPT and statins, did not qualify for fibrinolytic treatment since patient was outside of therapeutic window), due to multiple chronic strokes recommend completing ROMARIO, consulted Cardiology Cardiology on board: Completed ROMARIO which rule out intracavitary thrombus and PFO. Continue on telemetry status to evaluate atrial fibrillation/atrial flutter. Planning discharge to acute rehabilitation center # Hypertension Hydralazine 10 mg IV q.6 as needed for SBP greater than 150 Metoprolol tartrate 50 mg b.i.d. Completed echocardiogram: LVEF 60%, moderate LVH, normal RV function and no severe valve abnormalities (aortic sclerosis) # Type 2 diabetes, uncontrolled (Hb A1c 10.8) Insulin Lantus 25 units Mild sliding scale insulin # Dyslipidemia Cholesterol 201, LDL cholesterol 149 and HDL cholesterol 39. Currently on atorvastatin 80 mg p.o. daily # Obesity Gave advice on healthy lifestyle habits Goals of care discussed with patient for over 18 minutes: Full code status Discussed plan with Dr. Parra, patient, daughter and nurses: Planning discharge to acute rehab center for intense physical therapy sessions, pending authorization from insurance. Plan discussed with: Patient, Other (Nurses) Dietary Evaluation Review Comments: 1) Advance to 60g [facility] cardiac diet when medically feasible, pending CHIEF DEPUTY CORONER approval 2) Refer to outpatient RD/[facility] for diabetes education and weight management 3) Continue to monitor PO intake, labs, and skin integrity Expected Outcomes/Goals: 1) appetite and labs to improve 2) diet to advance 3) f/u in 5 days Date of Service: Oct 20, 2024 Billing Provider: KATLYN PARRA MD Common Visit Codes: [id number] INP/OBS CARE(MOD) MARTHA BHAKTA RESIDENT Oct 20, 2024 06:24 KATLYN PARRA MD Oct 22, 2024 12:39
--- NOTE | 2024-10-20 22:06 | DVHPN2 ---
Progress Note - Dictate Date Seen: Oct 20, 2024 Medical Necessity Reason Pt with a Central, PICC or Fol: No Subjective Mr. Meek is a 69 years old right handed gentleman with a history of hypertension, diabetes, obesity, the patient was brought to the [facility] on 10/13/2024 with a chief complaint of right-sided weakness, I have seen and examined the patient, I have discussed with his nurse, he keeps improving, alert and oriented x3, he was able to walk a few steps UDS, 10/12/2024: Negative CBC, 10/11/2024: Unremarkable CMP, 10/11/2024: Unremarkable HGB A1c, 10/11/2024: 10.8 TG/HDL/LDL/HDL, 10/11/2024: 145/201/149/39 Echocardiogram, 10/12/2024: lvef 60% by visual estimate moderate LVH normal rv function no severe valve abnormalites noted aortic sclerosis ROMARIO, 10/15/2024: Left Ventricle: Normal LV size and function, LVEF estimated at 60% moderate concentric LVH noted. Right Ventricle: NOrmal RV size and function Left atrium: enlarged, Right atrium: mild enlarged Left atrial appendage: no thrombus noted Aortic valve: trileaflet valve, no severe or AI Mitral Valve: structurally normal, mild mitral regurg, no MS Tricuspid Valve: mild tricuspid regurgitaiton, no TS Pulmonic Valve: strucutrally normal, no severe PIor PS Interatrial septum: negative color flow for R to L shunt, bubble study done doesnt show any severe R to L shunting Ascending aorta: minimal plaquing CT head, 10/11/2024: 4 mm hypodense focus within the left lateral thalamus with 5 mm hypodense focus within the left basal ganglia which may represent lacunar infarcts of unknown chronicity versus prominent perivascular spaces. MRI would be helpful for further evaluation (I saw hypodense in left nano) CTA head, neck, 10/11/2024: 1. Short-segment high-grade stenosis of the P2 segment of the left [employer]. This is age indeterminate. No encephalomalacia or CT signs of acute ischemia in the left cerebral lobe. Further evaluation with MRI could be completed if clinically warranted. 2. The anterior circulation is patent. The basilar artery and right SUPER[employer] DIST[employer]ION are patent. 3. No large vessel occlusion or high-grade stenosis in the neck MRI head, 10/12/2024: 1. Acute or subacute infarct in the left side of the nano. 2. Findings consistent with chronic small-vessel ischemic disease and chronic lacunar infarcts in the left basal ganglia and left thalamus 3. Additional findings as described above (Chronic lacunar infarcts in the left basal ganglia left thalamus) vital signs Vital Sign Date Time Temp Pulse Resp B/P (MAP) Pulse Ox O2 Delivery O2 Flow Rate FiO2 10/20/24 21:00 98.0 67 17 137/71 (93) 94 98.0 10/20/24 08:00 Room Air* 0 21 Total Intake and Output 10/19/24 10/19/24 10/20/24 15:00 23:00 07:00 Intake Total 950 ml 400 ml Output Total 650 ml Balance 300 ml 400 ml medications Current Medications Medications Dose Ordered Sig/Luis Route Start Time Stop Time Status Last Admin Dose Admin Metoprolol Tartrate 50 mg BID PO 10/11/24 22:00 10/20/24 20:54 50 MG Atorvastatin Calcium 40 mg HS PO 10/11/24 22:00 10/20/24 20:54 40 MG Docusate Sodium 100 mg BIDPRN PRN PO 10/11/24 21:45 10/14/24 09:04 100 MG Acetaminophen 650 mg Q6HP PRN PO 10/11/24 21:45 Insulin Glargine 25 units QAM SC 10/12/24 14:30 10/20/24 06:27 25 UNITS Clopidogrel Bisulfate 75 mg DAILY PO 10/12/24 22:00 11/01/24 23:00 10/20/24 09:07 75 MG Aspirin 81 mg DAILY PO 10/14/24 10:00 10/20/24 09:07 81 MG Diagnostic Test (Pha) 1 strip ACHS 10/17/24 11:30 10/20/24 20:55 1 STRIP Insulin Human Regular ACHS SC 10/17/24 11:30 10/20/24 21:00 4 UNITS Dextrose 50 ml UD PRN IV 10/17/24 11:15 objective General: the patient is well developed and nourished. No acute distress. MENTAL STATUS: Awake and alert. Oriented to person, place, time and general circumstances. Able to give personal history. SPEECH, LANGUAGE, HIGHER CORTICAL FUNCTION: no aphasia or dysathria. CRANIAL NERVES: Intact visual barrett to confrontation. The optic discs were sharp. Pupils are equal, round and reactive. EOMs full and conjugate. No nystagmus. Facial sensation intact in all three divisions bilaterally. Mandibular strength intact. Mild right facial weakness of upper motor neuron pattern SENSATION: Sensation to touch and pinprick is normal. MOTOR: Normal tone in the upper and lower extremity. Normal muscle bulk. No fasciculations. No abnormal movements or posturing. Muscle strength of the major groups in the right extremities: Arm: 3-4/5, Le/5. REFLEXES: Deep tendon reflexes are symmetrical. No pathological reflexes. CEREBELLAR/COORDINATION: Finger to nose is normal in the left arm GAIT/STATION: deferred. laboratory and microbiology Laboratory Tests 10/16/24 05:33 Test 10/16/24 05:33 Range/Units Serum Glucose 122 H 74-106 mg/dL Problem List Acute stroke syndrome Multiple strokes in CT brain scan Stroke risk fact: Hypertension, diabetes, Obesity Assessment/Plan Monitoring Supportive treatment Telemetry Lipitor 40 mg daily Aspirin 162 mg daily (home medication) Plavix 75 mg q.d. for 21 days He needs long-term category monitoring for evidence of arrhythmia/atrial fibrillation Up to chair Physical therapy More recommendation per clinical course This medical document was created using an electronic medical record system with Outsmart computerized dictation system. Although this document has been carefully reviewed, there may still be some phonetic and typographical errors. These areas are purely typographical due to imperfections of the software programs, and do not reflect any compromise in the patient's medical care. Prognosis poor Dietary Evaluation Review Comments: 1) Advance to 60g [facility] cardiac diet when medically feasible, pending HAM SAWYER approval 2) Refer to outpatient RD/[facility] for diabetes education and weight management 3) Continue to monitor PO intake, labs, and skin integrity Expected Outcomes/Goals: 1) appetite and labs to improve 2) diet to advance 3) f/u in 5 days Plan discussed with: Patient, Other RHETT MACKENZIE MD Oct 20, 2024 22:06
[2024-10-21] VITALS (8 sets, daily range): BP systolic 114–145; BP diastolic 46–90; PULSE 57–65; RESP 16–20; TEMP 98–98.4; O2SAT 93–96
--- NOTE | 2024-10-21 11:18 | DVHPNRES ---
Progress Note Date Seen: Oct 21, 2024 Resident Creating Document: APRIL TILLMAN RESIDENT Medical Necessity Reason Pt with a Central, PICC or Fol: No Subjective Review of Systems Patient is a 69-year-old male with past medical history of diabetes, hypertension, who came in after sustaining a fall. According to the patient on 10/10/2024, when he was in the parking lot of his workplace he felt dizzy and right-sided weakness along with some loss of balance which led to a fall. Per patient he went home after that and continued to feel weakness on his right side and felt unstable on his feet which is what prompted this visit to the hospital. In the hospital, patient was noted to have a blood pressure of to [address] showed a 4 mm hypodense focus within the left lateral thalamus with 5 mm hypodense focus within the left basal ganglia which may represent lacunar infarcts of unknown chronicity versus prominent perivascular space. Per patient, he was diagnosed with diabetes and hypertension, however, does not take any medications at home except for aspirin 81 mg p.o. daily Past surgical history: Denies Home medications: Aspirin, NSAID as needed [id number] Past Hospitalization: In 2019 for COVID pneumonia Social & Personal history: Patient lives with family. Denies smoking, denies using alcohol, denies using drugs. Allergies: Denies Patient seen and examined at bedside. Patient is and oriented to time, place person and responding to all questions. Right upper extremity still with decreased strength, right lower extremity improving strength. Patient cleared swallow evaluation and was subsequently started on a mechanical soft diet. Scheduled to undergo ROMARIO yesterday, no clots of PFO noted. Per physical therapy recommendations patient will need acute rehab facility/[facility]. Patient is progressing with PT daily, improving RLE, however, RUE strength still remains 1+ Objective vital signs Vital Sign Date Time Temp Pulse Resp B/P (MAP) Pulse Ox O2 Delivery O2 Flow Rate FiO2 10/21/24 09:08 62 133/81 10/21/24 09:00 98.2 16 93 98.2 10/21/24 08:00 Room Air* 0 21 Total Intake and Output 10/20/24 10/20/24 10/21/24 15:00 23:00 07:00 Intake Total 900 ml 500 ml Output Total 750 ml 800 ml Balance 150 ml -300 ml medications Current Medications Medications Dose Ordered Sig/Luis Route Start Time Stop Time Status Last Admin Dose Admin Metoprolol Tartrate 50 mg BID PO 10/11/24 22:00 10/21/24 09:08 50 MG Atorvastatin Calcium 40 mg HS PO 10/11/24 22:00 10/20/24 20:54 40 MG Docusate Sodium 100 mg BIDPRN PRN PO 10/11/24 21:45 10/14/24 09:04 100 MG Acetaminophen 650 mg Q6HP PRN PO 10/11/24 21:45 Insulin Glargine 25 units QAM SC 10/12/24 14:30 10/21/24 05:50 25 UNITS Clopidogrel Bisulfate 75 mg DAILY PO 10/12/24 22:00 11/01/24 23:00 10/21/24 09:08 75 MG Aspirin 81 mg DAILY PO 10/14/24 10:00 10/21/24 09:08 81 MG Diagnostic Test (Pha) 1 strip ACHS 10/17/24 11:30 10/21/24 05:44 1 STRIP Insulin Human Regular ACHS SC 10/17/24 11:30 10/21/24 05:49 2 UNITS Dextrose 50 ml UD PRN IV 10/17/24 11:15 Examination General Appearance: Cooperative. Well developed. Well nourished. NAD Head Exam: Normal inspection. Some facial asymmetry noted, improved from prior exam Neck Exam: Normal inspection. Non-tender. Normal alignment Pulmonary/Respiratory: Chest non-tender. Clear bilateral breath sounds, no crackles, no wheezing. Cardiovascular/Chest: Regular rate and rhythm. No murmurs. No JVD. Peripheral Pulses: 2+ Radial (R). 2+ Radial (L). 2+ Pedal (R). 2+ Pedal (L) Abdominal Exam: Normal bowel sounds. Soft. normal abdomen, no visible veins, Nontender. No hepatospenomegaly. No masses Ankle Exam: Negative ankle edema Lower extremities: Negative lower extremity edema Neuro/Mental Status: A&O x4. Coherent. Thoughts/Psych: Normal thought pattern. Appropriate mood and affect. Good judgement and insight Skin Exam: Normal inspection. Normal color. Warm. Dry Neurologic: 1+ strength in the right upper extremity, 2+ strength in the right lower extremity. A drift noted in the right lower extremity, improved from prior exam. Dysdiadochokinesia on the right, improved from prior exam. laboratory and microbiology Laboratory Tests 10/16/24 05:33 Test 10/16/24 05:33 Range/Units Serum Glucose 122 H 74-106 mg/dL Labs and/or images reviewed: Labs reviewed by me, Image(s) reviewed by me Problem List/Assessment/Plan Problem List/Assessment/Plan Acute to subacute ischemic stroke Acute stroke syndrome with multiple strokes - head CT: 4 mm hypodense focus within the left lateral thalamus with a 5 mm hyperdense focus within the left basal ganglia which may represent lacunar infarcts of unknown chronicity versus prominent perivascular spaces. -CT angiography head and neck: Short-segment high-grade stenosis of the P2 segment of the left COMMODITY LEAD. This is age indeterminate. No encephalomalacia or CT signs of acute ischemia in the left cerebral lobe. Further evaluation with MRI could be completed if clinically warranted. The anterior circulation is patent. The basilar artery and right COMMODITY LEAD are patent. No large vessel occlusion or high- grade stenosis in the neck - MRI brain: Acute or subacute infarct in the left side of the nano. Findings consistent with chronic small-vessel ischemic disease and chronic lacunar infarcts in the left basal ganglia and left thalamus. - echocardiogram: EF 60%. Moderate LVH. Normal RV function. No severe valve abnormalities noted. Aortic sclerosis - neurology on board - cardiology on board for ROMARIO: no large PFO or clots - patient is scheduled to undergo ROMARIO today - aspirin 162 mg p.o. daily - atorvastatin 40 mg p.o. - PT evaluation - started clopidogrel 75 mg p.o. daily - telemonitor showed a brief episode of afib around 5am on 10/17/24 - will likely need event monitor in the outpatient - awaiting placement in acute rehab facility Hypertensive urgency Hypertension - hydralazine 10 mg IV q.6 as needed for SBP greater than 150 - metoprolol tartrate 50 mg b.i.d. Type 2 diabetes, uncontrolled Hb A1c 10.8 - insulin Lantus 25 units - mild sliding scale insulin Obesity - counseled Goals of care: Full code, discussed for >16 minutes on 10/12/2024 Plan discussed with patient Plan discussed with Dr. Penny Plan discussed with: Patient, Other (RN) Dietary Evaluation Review Comments: 1) Advance to 60g [facility] [place] cardiac diet when medically feasible, pending [employer] approval 2) Refer to outpatient RD/[facility] for diabetes education and weight management 3) Continue to monitor PO intake, labs, and skin integrity Expected Outcomes/Goals: 1) appetite and labs to improve 2) diet to advance 3) f/u in 5 days Date of Service: Oct 21, 2024 Billing Provider: KATLYN PENNY MD Common Visit Codes: [id number] INP/OBS CARE(MOD) APRIL TILLMAN RESIDENT Oct 21, 2024 11:18 KATLYN PENNY MD Oct 22, 2024 12:40
[2024-10-22 01:00] VITALS: BP 128/64; PULSE 68; RESP 18; TEMP 97.9; O2SAT 98
[2024-10-22 05:00] VITALS: BP 126/61; PULSE 67; RESP 18; TEMP 98.2; O2SAT 98
[2024-10-22 08:00] VITALS: PULSE 65; PULSE 66
[2024-10-22 09:00] VITALS: BP 145/79; PULSE 65; RESP 16; TEMP 97.5; O2SAT 98
--- NOTE | 2024-10-22 12:59 | DVHPNRES ---
Progress Note Date Seen: Oct 22, 2024 Resident Creating Document: APRIL TILLMAN RESIDENT Medical Necessity Reason Pt with a Central, PICC or Fol: No Subjective Review of Systems Patient is a 69-year-old male with past medical history of diabetes, hypertension, who came in after sustaining a fall. According to the patient on 10/10/2024, when he was in the parking lot of his workplace he felt dizzy and right-sided weakness along with some loss of balance which led to a fall. Per patient he went home after that and continued to feel weakness on his right side and felt unstable on his feet which is what prompted this visit to the hospital. In the hospital, patient was noted to have a blood pressure of to [address] showed a 4 mm hypodense focus within the left lateral thalamus with 5 mm hypodense focus within the left basal ganglia which may represent lacunar infarcts of unknown chronicity versus prominent perivascular space. Per patient, he was diagnosed with diabetes and hypertension, however, does not take any medications at home except for aspirin 81 mg p.o. daily Past surgical history: Denies Home medications: Aspirin, NSAID as needed [id number] Past Hospitalization: In 2019 for COVID pneumonia Social & Personal history: Patient lives with family. Denies smoking, denies using alcohol, denies using drugs. Allergies: Denies Patient seen and examined at bedside. Patient is and oriented to time, place person and responding to all questions. Right upper extremity still with decreased strength, right lower extremity improving strength. Patient cleared swallow evaluation and was subsequently started on a mechanical soft diet. Scheduled to undergo ROMARIO yesterday, no clots of PFO noted. Per physical therapy recommendations patient will need acute rehab facility/[facility]. Patient is progressing with PT daily, improving RLE, however, RUE strength still remains 1+ Objective vital signs Vital Sign Date Time Temp Pulse Resp B/P (MAP) Pulse Ox O2 Delivery O2 Flow Rate FiO2 10/22/24 09:50 65 145/95 10/22/24 09:00 97.5 16 98 97.5 10/22/24 08:00 Room Air* 0 21 Total Intake and Output 10/21/24 10/21/24 10/22/24 15:00 23:00 07:00 Intake Total 1180 ml 200 ml Output Total 700 ml 570 ml Balance 480 ml -370 ml medications Current Medications Medications Dose Ordered Sig/Luis Route Start Time Stop Time Status Last Admin Dose Admin Metoprolol Tartrate 50 mg BID PO 10/11/24 22:00 10/22/24 09:50 50 MG Atorvastatin Calcium 40 mg HS PO 10/11/24 22:00 10/21/24 21:46 40 MG Docusate Sodium 100 mg BIDPRN PRN PO 10/11/24 21:45 10/14/24 09:04 100 MG Acetaminophen 650 mg Q6HP PRN PO 10/11/24 21:45 Insulin Glargine 25 units QAM SC 10/12/24 14:30 10/22/24 06:48 25 UNITS Clopidogrel Bisulfate 75 mg DAILY PO 10/12/24 22:00 11/01/24 23:00 10/22/24 09:50 75 MG Aspirin 81 mg DAILY PO 10/14/24 10:00 10/22/24 09:50 81 MG Diagnostic Test (Pha) 1 strip ACHS 10/17/24 11:30 10/22/24 12:06 1 STRIP Insulin Human Regular ACHS SC 10/17/24 11:30 10/22/24 12:05 3 UNITS Dextrose 50 ml UD PRN IV 10/17/24 11:15 Examination General Appearance: Cooperative. Well developed. Well nourished. NAD Head Exam: Normal inspection. Some facial asymmetry noted, improved from prior exam Neck Exam: Normal inspection. Non-tender. Normal alignment Pulmonary/Respiratory: Chest non-tender. Clear bilateral breath sounds, no crackles, no wheezing. Cardiovascular/Chest: Regular rate and rhythm. No murmurs. No JVD. Peripheral Pulses: 2+ Radial (R). 2+ Radial (L). 2+ Pedal (R). 2+ Pedal (L) Abdominal Exam: Normal bowel sounds. Soft. normal abdomen, no visible veins, Nontender. No hepatospenomegaly. No masses Ankle Exam: Negative ankle edema Lower extremities: Negative lower extremity edema Neuro/Mental Status: A&O x4. Coherent. Thoughts/Psych: Normal thought pattern. Appropriate mood and affect. Good judgement and insight Skin Exam: Normal inspection. Normal color. Warm. Dry Neurologic: 1+ strength in the right upper extremity, 2+ strength in the right lower extremity. A drift noted in the right lower extremity, improved from prior exam. Dysdiadochokinesia on the right, improved from prior exam. laboratory and microbiology Laboratory Tests 10/16/24 05:33 Test 10/16/24 05:33 Range/Units Serum Glucose 122 H 74-106 mg/dL Problem List/Assessment/Plan Problem List/Assessment/Plan Acute to subacute ischemic stroke Acute stroke syndrome with multiple strokes - head CT: 4 mm hypodense focus within the left lateral thalamus with a 5 mm hyperdense focus within the left basal ganglia which may represent lacunar infarcts of unknown chronicity versus prominent perivascular spaces. -CT angiography head and neck: Short-segment high-grade stenosis of the P2 segment of the left [employer] M[employer] UP MECHANIC. This is age indeterminate. No encephalomalacia or CT signs of acute ischemia in the left cerebral lobe. Further evaluation with MRI could be completed if clinically warranted. The anterior circulation is patent. The basilar artery and right [employer] M[employer] MECHANIC are patent. No large vessel occlusion or high- grade stenosis in the neck - MRI brain: Acute or subacute infarct in the left side of the nano. Findings consistent with chronic small-vessel ischemic disease and chronic lacunar infarcts in the left basal ganglia and left thalamus. - echocardiogram: EF 60%. Moderate LVH. Normal RV function. No severe valve abnormalities noted. Aortic sclerosis - neurology on board - cardiology on board for ROMARIO: no large PFO or clots - patient is scheduled to undergo ROMARIO today - aspirin 162 mg p.o. daily - atorvastatin 40 mg p.o. - PT evaluation - started clopidogrel 75 mg p.o. daily - telemonitor showed a brief episode of afib around 5am on 10/17/24 - will likely need event monitor in the outpatient - awaiting placement in acute rehab facility Hypertensive urgency Hypertension - hydralazine 10 mg IV q.6 as needed for SBP greater than 150 - metoprolol tartrate 50 mg b.i.d. Type 2 diabetes, uncontrolled Hb A1c 10.8 - insulin Lantus 25 units - mild sliding scale insulin Obesity - counseled Goals of care: Full code, discussed for >16 minutes on 10/12/2024 Plan discussed with patient Plan discussed with Dr. Penny Plan discussed with: Patient My Orders My Orders Orders - APRIL TILLMAN RESIDENT Procedure Category Date Status Time Discharge DISCHARGE 10/22/24 Transmitted 12:51 * Youth Manager CONS 10/22/24 Transmitted Consult Dietary Evaluation Review Comments: 1) Advance to 60g [facility] cardiac diet when medically feasible, pending [facility] approval 2) Refer to outpatient RD/[facility] for diabetes education and weight management 3) Continue to monitor PO intake, labs, and skin integrity Expected Outcomes/Goals: 1) appetite and labs to improve 2) diet to advance 3) f/u in 5 days APRIL TILLMAN RESIDENT Oct 22, 2024 12:59
[2024-10-22 13:00] VITALS: BP 150/74; PULSE 70; RESP 16; TEMP 97.9; O2SAT 97
[2024-10-22 14:51] VITALS: BP 145/95; PULSE 65; RESP 16; TEMP 36.6
[2024-10-22] MEDS ORDERED: MORPHINE SULFATE INJ 2 MG/ml SYRG IV ONE (14:55)
== END 2024-10-22 15:51 | disposition short-term general hospital (02) | DRG 65 ==
LOC: ER 17:36 → OVERFLOW 21:54 → TELE-CENTR 10-12 18:09 → CENTRAL 10-17 08:57 → TELE-CENTR 10-18 01:19
PROVIDERS: ADMIT Student in an Organized Health Care Education/Training Program; ATTEND Emergency Medicine
PROC: B246ZZ4 Ultrasonography of Right and Left Heart, Transesophageal (ICD-10-PCS; principal; 2024-10-15)
DX: I63.9 Cerebral infarction, unspecified (principal); G81.91 Hemiplegia, unspecified affecting right dominant side; E11.65 Type 2 diabetes mellitus with hyperglycemia; E66.01 Morbid (severe) obesity due to excess calories; E78.5 Hyperlipidemia, unspecified; I10 Essential (primary) hypertension; I16.0 Hypertensive urgency; I45.10 Unspecified right bundle-branch block; R47.81 Slurred speech; Z79.82 Long term (current) use of aspirin; Z79.899 Other long term (current) drug therapy; Z79.1 Long term (current) use of non-steroidal anti-inflammatories (NSAID); Z79.891 Long term (current) use of opiate analgesic; Z68.36 Body mass index [BMI] 36.0-36.9, adult
CPT/HCPCS: 36415; 70450; 70496; 70498; 70551; 71045; 80048; 80053; 80061; 80307; 81001; 82962; 83036; 83735; 83880; 84100; 84443; 84484; 85025; 85610; 85730; 86850; 86900; 86901; 92610; 93005; 93306; 93312; 97110; 97116; 97163; 97530; 99152; 99291; G0378; J1815; J2250